=== PATIENT | male | born 1940 | race Caucasian/White ===

== ENCOUNTER 2021-09-17 15:45 | Inpatient (IN) ==
--- NOTE | 2021-09-17 16:06 | Emergency Department Note ---
Impression & Plan Ventricular tachycardia (paroxysmal), Near syncope, Elevated troponin, Hyponatremia ED Provider Note Name: BEBETO [id number] MORAIMA Age: 81 Sex: M Arrives Via: Ambulance Informant: Patient, EMS ED Provider: Guero Vargas MD Chief Complaint: Near Syncope Impression: As per impressions above Medical Decision Makin-year-old gentleman arrives from jail for evaluation of near syncope. He has a history of A. fib, hypertension, hyperlipidemia, CHF and has a pacemaker/ICD in place. Patient has had several episodes today of near syncope significantly worse this evening while showering. EKG at jail showed a wide- complex tachycardia either V. tach or SVT. He arrives to the ER no distress and feeling well. He is already received aspirin by EMS. He has an EKG which is paced and no overt ischemia nor ectopy at this time. On the monitor he has had no ectopy issues and he has been feeling well. Labs reveal a mildly elevated troponin of uncertain etiology though likely due to his tachycardia. He has no active chest pain and he is already on Eliquis thus starting anticoagulation seems unnecessary. He has no history of PE or dissection and getting a CTA is not indicated in this asymptomatic patient at the current time. Labs otherwise do show some hyponatremia that is unclear if this is new or old. With unknown CHF history we will hold off on giving significant fluids at this point as well as go ahead with starting some other labs including a urine osmolality/sodium as well as a blood osmolality. Pacemaker was interrogated which reveals that patient has actually had 4 episodes of ventricular tachycardia today all of which were able to be out of rhythm rather than requiring ICD firing. Pis calm cooperative and agreeable to hospitalization. Hospitalist consulted for further management. Prior Medical Record and Triage/Nursing Notes reviewed by Me Additional history obtained from jail records and EMS Differentials:Vasovagal event, dehydration, infection, hypoglycemia, electrolyte abnormalities, cardiac sources, intracerebral event, pulmonary embolism, seizure, toxicologic, neurologic, as well as other pathologies. Vital Signs: reviewed and remarkable for no significant abnormalities Labs:Reviewed and remarkable for elevated troponin, low sodium. Imaging:X ray results are stated below per my interpretation: Chest: 1 view: No infiltrate, no effusion, normal cardiac border. EKG:Per My Interpretation: Indication near syncope: AV dual paced at 72 bpm with QTC of 508. B, no overt ischemia, no previous EKGs for comparison Cardiac/Tele Monitoring: Cardiac Monitoring: An Order was placed for continuous cardiac monitoring. The monitor shows a rate of 70 with a paced rhythm. Consults:[facility] hospitalist [employer]: Wires/Battery OK. 4 episodes VT today. Last one has retrograde p waves, but first 3 were VT. All paced out of them without shock. January 2021 did have a few episodes without check since. Plan: Disposition:Hospitalization. Condition: Good History of Present Illness:81-year-old gentleman from jail arrives for evaluation of near syncope. Patient notes that this morning he had an episode of feeling like he was about to pass out with a racing heart. Lasted a while until he ate an apple and started feeling better. As the day went on he was feeling well and then was taking a shower and towards the end of the shower he felt like he was going to pass out again. Patient notes he almost collapsed to the floor and was [facility]. An EKG at that point showed a wide- complex tachycardia with a heart rate of 180. EMS was called and by the time EMS arrived patient notes he was feeling much better and their EKG showed a paced rhythm. Patient notes he has no history of CAD with a clean cath several years ago. He does have a history of A. fib and slow heart rate thus he has had a pacemaker with a defibrillator for the last several years. He is adamant that he did not feel any cardioversion with either the episodes today but rather the tachycardia just went away. He denies any chest pain with it. He has no current chest pain, shortness of breath, headache, neck pain, huber pain, nausea, vomiting, fevers, chills, runny nose, bowel/bladder her symptoms, leg swelling, calf pain or other symptoms. He has a history of A. fib thus he is on Eliquis which she takes twice a day along with his other medications. He had no recent falls, trauma, injuries. He states he actually feels quite fine right now. He had no interventions prior to arrival. When he was having the symptoms standing made worse and sitting down did seem to make better. ROS: See above HPI for pertinent positives & negatives. A total of 10 systems reviewed and were otherwise negative. Past Medical History:A. fib, hypertension, hyperlipidemia, CHF Past Surgical History:None Family History:Does not recall Social History:Prisoner, does not smoke, does not drink, no drug use Home Medications:Eliquis, metoprolol, hydrochlorothiazide, atorvastatin Allergies:No known drug allergies Vitals:Blood Pressure: 126/80, Pulse 74, RR 18, T 36.7C, O2 100% on RA Physical Exam: GENERAL: Patient is well appearing and in no acute distress. Sitting in bed in jail garb EYES: No scleral icterus, unremarkable pupils. ENT: Mucous membranes moist, no nasal congestion. NECK: No masses appreciated, nomeningismus, trachea is midline. RESPIRATORY: No dyspnea. Clear to auscultation and equal bilaterally. No wheeze, no rhonchi. CARDIOVASCULAR: Regular rate and rhythm.No murmurs, rubs, gallops appreciated. GASTROINTESTINAL: Abdomen soft, non-tender, no peritonitis.Bowel sounds positive.No masses appreciated. BACK: No midline tenderness, no CVA tenderness EXTREMITIES: Normal motion all extremities, no cyanosis, no edema. NEUROLOGIC: Alert and oriented, no acute motor or sensory deficits, no focal weakness, cranial nerves grossly intact. SKIN: No rash, no jaundice, no diaphoresis. PSYCH: Appropriate GCS: 15 ED Course: Times/Reassessments: Patient feeling well throughout without any further symptoms and unremarkable cardiac monitoring while under my care. Guero Vargas MD Past Med/Surg History Medical History (Updated 09/17/21 @ 21:22 by Guero Vargas MD) Atrial fibrillation CKD (chronic kidney disease) Diabetes mellitus, type II History of CHF (congestive heart failure) HLD (hyperlipidemia) HTN (hypertension) ICD (implantable cardioverter-defibrillator) in place Prostate cancer Surgical History (Updated 09/17/21 @ 19:20 by Mikaela Zhong PA-C) History of cardiac cath reported was in 2018 at [facility] in [place], [place] History of prostate surgery Family History (Updated 09/17/21 @ 19:20 by Mikaela Zhong PA-C) Father Stroke Social History (Updated 09/17/21 @ 19:20 by Mikaela Zhong PA-C) Smoking Status: Never smoker Hx Alcohol Use: No Hx Substance Use: No Preferred Language: Armenian Communication Ability: Effective Tmr Teacher Required: No Beliefs That Will Affect Care: None Current Living Situation: Other Current Living Situation Comment: [facility] Other Information That Helps Us Care for You: No Feels Safe at Home: Yes Safety Concerns: Feels Safe At This Time Assistive Devices: Glasses Allergies Allergies Allergy/AdvReac Type Severity Reaction Status Date / Time glimepiride Allergy reported Unverified 09/17/21 18:22 hypoglycemia linagliptin [From Tradjenta] Allergy Unknown Unverified 09/17/21 18:06 metformin Allergy itching Unverified 09/17/21 18:22 saxagliptin [From Onglyza] Allergy Unknown Unverified 09/17/21 18:06 Home Meds Home Medications Medication Instructions Recorded Confirmed apixaban 2.5 mg tablet (Eliquis) 2.5 mg PO BID 09/17/21 09/17/21 atorvastatin 20 mg tablet 20 mg PO DAILY 09/17/21 09/17/21 bimatoprost 0.03 % eye drops 1 drp OPB DAILY 09/17/21 09/17/21 hydrochlorothiazide 25 mg tablet 25 mg PO DAILY 09/17/21 09/17/21 levothyroxine 100 mcg tablet 100 mcg PO QAM 09/17/21 09/17/21 metoprolol tartrate 25 mg tablet 12.5 mg PO BID 09/17/21 09/17/21 multivitamin 1 tab PO DAILY 09/17/21 09/17/21 Results & Data (ED) Vital Signs Vital Signs - 24 hr 09/17/21 15:51 Temperature 36.7 C Temperature Source Oral Pulse Rate 74 Respiratory Rate 18 Blood Pressure 126/80 Blood Pressure Mean 95 Pulse Oximetry 100 Oxygen Delivery Method Room Air Oxygen Flow Rate 100 Sepsis Recent Fever Within 48 Hours No Sepsis New/Unexplained Change in Mental Status No Sepsis Action Taken by Nursing No Action Required Laboratory Data Result diagrams: 09/17/21 16:00 09/17/21 16:00 Lab Results 09/17/21 09/17/21 09/17/21 Range/Units 16:00 16:00 16:00 WBC 7.90 (4.8-10.8) K/uL RBC 4.46 L (4.7-6.1) M/uL Hgb 13.5 L (14.0-18.0) g/dL Hct 38.6 L (42-52) % MCV 86.5 (80-100) fL MCH 30.3 (25-34) pg MCHC 35.0 (32-36) g/dL RDW Std Deviation 40.7 (36.4-46.3) fL RDW Coeff of Gisele 12.8 (11.5-14.5) % Plt Count 202 (130-400) K/uL MPV 10.7 H (7.4-10.4) fL Immature Gran % (Auto) 0.6 % Neut % (Auto) 71.4 % Lymph % (Auto) 12.8 % Hampton % (Auto) 12.5 % Eos % (Auto) 2.3 % Baso % (Auto) 0.4 % Neut # (Auto) 5.64 (1.4-6.5) K/uL Lymph # (Auto) 1.01 L (1.2-3.4) K/uL Hampton # (Auto) 0.99 H (0.11-0.59) K/uL Eos # (Auto) 0.18 (0-0.5) K/uL Baso # (Auto) 0.03 (0-0.2) K/uL Immature Gran # (Auto) 0.05 H (0.00-0.02) K/uL Sodium 123 L (136-145) mmol/L Potassium 4.3 (3.5-5.1) mmol/L Chloride 91 L (98-107) mmol/L Carbon Dioxide 27 (21-32) mmol/L Anion Gap 5 (3-11) BUN 24 H (6-23) mg/dl Creatinine 1.45 H (0.6-1.4) mg/dl Est Cr Clr Drug Dosing 47.9 ml/min Est GFR ( Amer) 52.0 ml/min Est GFR (Non-Af Amer) 44.8 ml/min BUN/Creatinine Ratio 16.6 (10-20) Glucose 141 H (70-99(Fasting)) mg/dl Osmolality (280-300) mOsm/kg Calcium 9.4 (8.5-10.1) mg/dl Magnesium 1.8 (1.7-2.4) mg/dl Total Bilirubin 0.8 (0.2-1.0) mg/dl Direct Bilirubin 0.2 (0-0.2) mg/dl AST 24 (13-39) U/L ALT 18 (7-52) U/L Alkaline Phosphatase 86 (34-104) U/L Troponin I 0.05 H* (0-0.04) ng/ml Total Protein 6.7 (6.0-8.3) gm/dl Albumin 4.0 (3.4-5.0) gm/dl TSH 1.413 (0.300-4.500) uIu/ml SARS-CoV-2, RNA, NAAT (NEGATIVE) 09/17/21 09/17/21 Range/Units 16:00 16:14 WBC (4.8-10.8) K/uL RBC (4.7-6.1) M/uL Hgb (14.0-18.0) g/dL Hct (42-52) % MCV (80-100) fL MCH (25-34) pg MCHC (32-36) g/dL RDW Std Deviation (36.4-46.3) fL RDW Coeff of Gisele (11.5-14.5) % Plt Count (130-400) K/uL MPV (7.4-10.4) fL Immature Gran % (Auto) % Neut % (Auto) % Lymph % (Auto) % Hampton % (Auto) % Eos % (Auto) % Baso % (Auto) % Neut # (Auto) (1.4-6.5) K/uL Lymph # (Auto) (1.2-3.4) K/uL Hampton # (Auto) (0.11-0.59) K/uL Eos # (Auto) (0-0.5) K/uL Baso # (Auto) (0-0.2) K/uL Immature Gran # (Auto) (0.00-0.02) K/uL Sodium (136-145) mmol/L Potassium (3.5-5.1) mmol/L Chloride (98-107) mmol/L Carbon Dioxide (21-32) mmol/L Anion Gap (3-11) BUN (6-23) mg/dl Creatinine (0.6-1.4) mg/dl Est Cr Clr Drug Dosing ml/min Est GFR ( Amer) ml/min Est GFR (Non-Af Amer) ml/min BUN/Creatinine Ratio (10-20) Glucose (70-99(Fasting)) mg/dl Osmolality 273 L (280-300) mOsm/kg Calcium (8.5-10.1) mg/dl Magnesium (1.7-2.4) mg/dl Total Bilirubin (0.2-1.0) mg/dl Direct Bilirubin (0-0.2) mg/dl AST (13-39) U/L ALT (7-52) U/L Alkaline Phosphatase (34-104) U/L Troponin I (0-0.04) ng/ml Total Protein (6.0-8.3) gm/dl Albumin (3.4-5.0) gm/dl TSH (0.300-4.500) uIu/ml SARS-CoV-2, RNA, NAAT NEGATIVE (NEGATIVE) Administered Medications Apixaban (Apixaban 2.5 Mg Tab) 2.5 mg PO BID [facility] Stop: 10/17/21 20:59 Last Admin: 09/17/21 20:49 Dose: 2.5 mg Documented by: [id number] Amiodarone HCl/Dextrose (Nexterone / D5w) 360 mg in 200 mls @ 33.333 mls/hr IV ONE ONE Stop: 09/18/21 02:29 Last Admin: 09/17/21 20:49 Dose: 33.3 mls/hr Documented by: [id number] Cosigned by: [id number] Insulin Aspart (Insulin Aspart Per Unit) 0 units SC ACHS [facility] Stop: 10/17/21 20:59 Last Admin: 09/17/21 20:50 Dose: 3 units Documented by: [id number] Cosigned by: [id number] Metoprolol Tartrate (Metoprolol Tartrate 25 Mg Tab) 12.5 mg PO BID [facility] Stop: 10/17/21 20:59 Last Admin: 09/17/21 20:50 Dose: 12.5 mg Documented by: [id number] Discontinued Medications Amiodarone HCl/Dextrose (Nexterone / D5w) 150 mg in 100 mls @ 600 mls/hr IV NOW STA Stop: 09/17/21 19:12 Last Admin: 09/17/21 20:30 Dose: 600 mls/hr Documented by: [id number] Cosigned by: [id number] Sodium Chloride (Nss 1000ml) 500 mls @ 999 mls/hr IV .Q31M ONE Stop: 09/17/21 19:40 Last Admin: 09/17/21 20:38 Dose: 999 mls/hr Documented by: [id number] Imaging Data Radiologist's Impression: Chest X-Ray 09/17/21 16:01 XR chest 1V portable CLINICAL HISTORY: near syncope TECHNIQUE: Single frontal radiograph of the chest was obtained. Comparison: None available at the time of this dictation. FINDINGS: No lines and tubes are seen. The aorta is tortuous. The remainder of the cardiomediastinal silhouette is unremarkable. The lungs are clear. No evidence of pleural effusion or pneumothorax. IMPRESSION: No acute chest disease. ACT 112: Negative or not required by law. Electronically signed by: Jose G Crowe M.D. 09/17/2021 5:11 PM Discharge Plan Visit Data Chief Complaint: Dizziness Stated Complaint: DIZZINESS, CHEST PAIN, SOB ED Provider: Guero Vargas Discharge Problem: Ventricular tachycardia (paroxysmal), Near syncope, Elevated troponin, Hyponatremia Patient Disposition: Admitted As Inpatient Discharge Instructions Interventions: ED Discharge Assessment Last Done: 09/17/21 19:19
[2021-09-17 16:14] LABS: Basophils # (auto) 0.03 K/uL (0-0.2); Basophils % (auto) 0.4 %; Eosinophils # (auto) 0.18 K/uL (0-0.5); Eosinophils % (auto) 2.3 %; Hematocrit (blood only) 38.6 % (42-52); Hemoglobin 13.5 g/dL (14.0-18.0); Immature Granulocytes # (auto) 0.05 K/uL (0.00-0.02); Immature Granulocytes % (auto) 0.6 %; Lymphocytes # (auto) 1.01 K/uL (1.2-3.4); Lymphocytes % (auto) 12.8 %; Mean Corpuscular Hemoglobin 30.3 pg (25-34); Mean Corpuscular Volume 86.5 fL (80-100); Mean Platelet Volume 10.7 fL (7.4-10.4); Monocytes # (auto) 0.99 K/uL (0.11-0.59); Monocytes % (auto) 12.5 %; Neutrophils # (auto) 5.64 K/uL (1.4-6.5); Neutrophils % (auto) 71.4 %; Platelet Count 202 K/uL (130-400); RDW Coefficient of Variation 12.8 % (11.5-14.5); RDW Standard Deviation 40.7 fL (36.4-46.3); Red Blood Count 4.46 M/uL (4.7-6.1)
[2021-09-17 16:37] LABS: BUN Creatinine Ratio 16.6 (10-20); Bilirubin Direct 0.2 mg/dl (0-0.2); Bilirubin,Total 0.8 mg/dl (0.2-1.0); Calcium 9.4 mg/dl (8.5-10.1); Creatinine Clr Calc Pharmacy 47.9 ml/min; Est GFR (Non-African American) 44.8 ml/min; Magnesium 1.8 mg/dl (1.7-2.4); Potassium 4.3 mmol/L (3.5-5.1); Total Protein 6.7 gm/dl (6.0-8.3)
[2021-09-17 16:44] LABS: Troponin I 0.05 ng/ml (0-0.04)
--- NOTE | 2021-09-17 17:12 | XRay Report ---
XR chest 1V portable CLINICAL HISTORY: near syncope TECHNIQUE: Single frontal radiograph of the chest was obtained. Comparison: None available at the time of this dictation. FINDINGS: No lines and tubes are seen. The aorta is tortuous. The remainder of the cardiomediastinal silhouette is unremarkable. The lungs are clear. No evidence of pleural effusion or pneumothorax. IMPRESSION: No acute chest disease. ACT 112: Negative or not required by law. Electronically signed by: Jose G Crowe M.D. 09/17/2021 5:11 PM
--- NOTE | 2021-09-17 17:20 | History & Physical Report ---
Date of Service September 17, 2021 Assessment & Plan (1) Ventricular tachycardia (paroxysmal): (2) History of CHF (congestive heart failure): (3) ICD (implantable cardioverter-defibrillator) in place: (4) Elevated troponin: Plan: Patient is 81-year-old male with PMH HTN, HLD, diet controlled DM II, CKD, CHF, h/o pacemaker/ICD, atrial fibrillation on Eliquis, h/o prostate CA s/p surgery presented to ER with complaint of episodes of dizziness, syncope. Denies shocks, denies chest pain or recent illness. Patient reports in 2018 developed SOB and was seen at [facility] in [place], [place] and was diagnosed with CHF. Patient states had cardiac cath and reports was told it was ok. He reports had pacer/ICD placed during that admission. In ER patient had paced rhythm upon arrival, vitals stable. Had device interrogated and reported episodes VT with paced termination, no shocks. In ER patient reports feeling well. Magnesium and TSH labs WNL PCU to monitor Obtain echo Troponin: 0.05, likely demand ischemia secondary to episodes VT. Trend troponin EKG as needed for CP, palpitations EKG in a.m. Cardiology consult, prison officer recommends amiodarone bolus and drip Attempt to obtain records from [facility] (5) Hyponatremia: Plan: Na 123. Unsure of patient's baseline Serum and urine osmolality, serum sodium pending Hold HCTZ gentle IVF BMP in am (6) CKD (chronic kidney disease): Plan: Unsure of stage of CKD Cr:1.45 Monitor renal functions, avoid nephrotoxic agents when possible (7) Atrial fibrillation: Plan: On Eliquis Continue Eliquis, metoprolol tartrate (8) Diabetes mellitus, type II: Plan: Now diet controlled Diabetic diet A1c in a.m. NovoLog sliding scale per protocol (9) HTN (hypertension): Plan: Hold HCTZ (10) HLD (hyperlipidemia): Plan: Continue atorvastatin (11) Prostate cancer: Plan: Status post prostate surgery. Patient reports does not think had prostatectomy. Denies h/o chemo or radiation DVT Prophylaxis On Eliquis Full Code as per discussion with pt Follows with Dr brendan Mckenzie for routine care Pt was seen and care coordinated with Dr Berger. See addendum History of Present Illness Chief Complaint: Dizziness Primary Care Provider: ZAK Jonah Patient is 81-year-old male with PMH HTN, HLD, diet controlled DM II, CKD, CHF, h/o pacemaker/ICD, atrial fibrillation on Eliquis, h/o prostate CA s/p surgery presented to ER with complaint of dizziness today. Patient reports this morning was sitting playing cards when he started to feel dizzy and reports that he "blacked out". He states this afternoon was showering when he started to have dizziness, shortness of breath and felt like his heart was racing and reports he was able to sit down prior to having a syncopal episode. It is reported patient was taken to [facility] and found to have wide-complex tachycardia, rate 180 on EKG. Reports upon EMS arrival patient was in paced rhythm. Patient denies feeling any shocks today. Denies chest pain. Patient reports in 2018 developed SOB and was seen at [facility] in [place], [place] and was diagnosed with CHF. Patient states had cardiac cath and reports was told it was ok. He reports had pacer/ICD placed during that admission. Denies fever/chills, diaphoresis, N/V/D/C, [place], vision changes, neck pain, cough, sore throat, choking, otalgia, rhinorrhea, abdominal pain, paresthesias, extremity weakness, extremity edema, rashes, urinary symptoms. In ER patient had paced rhythm upon arrival, vitals stable. Had device interrogated and reported episodes VT with paced termination, no shocks. In ER patient reports feeling well. Allergies Allergy/AdvReac Type Severity Reaction Status Date / Time glimepiride Allergy reported Unverified 09/17/21 18:22 hypoglycemia linagliptin [From Tradjenta] Allergy Unknown Unverified 09/17/21 18:06 metformin Allergy itching Unverified 09/17/21 18:22 saxagliptin [From Onglyza] Allergy Unknown Unverified 09/17/21 18:06 Home Medications Medication Instructions Recorded Confirmed Type apixaban 2.5 mg tablet (Eliquis) 2.5 mg PO BID 09/17/21 09/17/21 History atorvastatin 20 mg tablet 20 mg PO DAILY 09/17/21 09/17/21 History bimatoprost 0.03 % eye drops 1 drp OPB DAILY 09/17/21 09/17/21 History hydrochlorothiazide 25 mg tablet 25 mg PO DAILY 09/17/21 09/17/21 History levothyroxine 100 mcg tablet 100 mcg PO QAM 09/17/21 09/17/21 History metoprolol tartrate 25 mg tablet 12.5 mg PO BID 09/17/21 09/17/21 History multivitamin 1 tab PO DAILY 09/17/21 09/17/21 History Past Med/Surg History Medical History (Updated 09/17/21 @ 19:22 by Mikaela Zhong PA-C) Atrial fibrillation CKD (chronic kidney disease) Diabetes mellitus, type II History of CHF (congestive heart failure) HLD (hyperlipidemia) HTN (hypertension) ICD (implantable cardioverter-defibrillator) in place Prostate cancer Surgical History (Updated 09/17/21 @ 19:20 by Mikaela Zhong PA-C) History of cardiac cath reported was in 2018 at [facility] in [place], [place] History of prostate surgery Family History (Updated 09/17/21 @ 19:20 by Mikaela Zhong PA-C) Father Stroke Social History (Updated 09/17/21 @ 19:20 by Mikaela Zhong PA-C) Smoking Status: Never smoker Hx Alcohol Use: No Hx Substance Use: No Preferred Language: Slovenian Feels Safe at Home: Yes Review of Systems Review of Systems: All systems reviewed & are unremarkable except as noted in HPI & below Physical Exam Physical Exam: General: no distress, WDWN Head: normocephalic, atraumatic Eyes: PERRL, EOM's intact, conjunctiva non-injected, anicteric ENT: normal inspection external ears, nose, mucous membranes moist Neck: supple, trachea midline Lungs: clear, no respiratory distress, no wheezing/rhonchi/rales CV: RRR, no murmur, no pretibial edema Abd: normal BS, soft, non-tender Ext: no cyanosis, no calf tenderness Neuro: A&O x 3, no focal deficits noted, normal affect Skin: warm, dry Results & Data Results & Data ([facility]) Vital Signs (Past 12 Hours) Vital Signs Temp Pulse Resp BP Pulse Ox 09/17/21 15:51 36.7 C 74 18 126/80 100 Laboratory Results Short CBC 09/17/21 Range/Units 16:00 WBC 7.90 (4.8-10.8) K/uL Hgb 13.5 L (14.0-18.0) g/dL Hct 38.6 L (42-52) % Plt Count 202 (130-400) K/uL BMP 09/17/21 16:00 Sodium 123 L Potassium 4.3 Chloride 91 L Carbon Dioxide 27 BUN 24 H Creatinine 1.45 H Glucose 141 H Calcium 9.4 Cardiac Enzymes 09/17/21 Range/Units 16:00 Troponin I 0.05 H* (0-0.04) ng/ml Liver Function 09/17/21 Range/Units 16:00 Total Bilirubin 0.8 (0.2-1.0) mg/dl Direct Bilirubin 0.2 (0-0.2) mg/dl AST 24 (13-39) U/L ALT 18 (7-52) U/L Alkaline Phosphatase 86 (34-104) U/L Albumin 4.0 (3.4-5.0) gm/dl Diagnostic Findings Chest X-Ray 09/17/21 16:01 XR chest 1V portable CLINICAL HISTORY: near syncope TECHNIQUE: Single frontal radiograph of the chest was obtained. Comparison: None available at the time of this dictation. FINDINGS: No lines and tubes are seen. The aorta is tortuous. The remainder of the cardiomediastinal silhouette is unremarkable. The lungs are clear. No evidence of pleural effusion or pneumothorax. IMPRESSION: No acute chest disease. ACT 112: Negative or not required by law. Electronically signed by: Jose G Crowe M.D. 09/17/2021 5:11 PM Supervising Physician Co-Signing Physician Notes Pt is a 81 y/o M with hx of CHF (unknown EF) s/p ICD and pacemaker, Afib on eliquis, HTN, DMII (diet controlled), Hypothyroidism, CKD III, Prostate Ca s/p surgery, skin Ca admitted for episode of syncope and VT. PE: NAD, well developed Lungs: CTA, no crackles, or wheezing Card: normal s1/s2, systolic murmur Abd: ND, soft, NT MSK: no LE edema Psych: AAOx3, normal affect A/P: Syncope with episode of VT: -currently pt is asymptomatic -EKG: paced rhythm -initial trop positive: will trend trop -Cardiology consult -will get echo and admit to pcu tele HypoNa+: -likely dehydration -will give 500 cc bolus -BMP in 6 hrs - normal mental status Afib on eliquis: -continue home meds Other chronic conditions: plan as above Agree with A/P by Mikaela Zhong PA-C
[2021-09-17] MEDS ORDERED: AMIODARONE IV BOLUS & DRIP IV STA (19:03)
[2021-09-17] MEDS ORDERED: STAT IV Infusion **Titration per Protocol STA (19:03)
[2021-09-17] MEDS ORDERED: AMIODARONE / D5W 150 MG/100 ML BAG IV STA (19:03)
[2021-09-17] MEDS ORDERED: SODIUM CHLORIDE 0.9% 1000ML 500 ML IV ONE (19:10)
[2021-09-17] MEDS ORDERED: CARBOHYDRATES FOR HYPOGLYCEMIA PO PRN (20:16)
[2021-09-17] MEDS ORDERED: GLUCAGON FOR INJ 1 MG VIAL SQ PRN (20:16)
[2021-09-17] MEDS ORDERED: DEXTROSE 50% 50 ML SYRINGE IV PRN (20:16)
[2021-09-17] MEDS ORDERED: 0.2 MICRON FILTER SET 1 EA IV ONE (20:16)
[2021-09-17] MEDS ORDERED: GLUCOSE 10 TABS/TUBE PO PRN (20:16)
[2021-09-17] MEDS ORDERED: GLUCOSE 40% GEL 15 GM TUBE PO PRN (20:16)
[2021-09-17] MEDS ORDERED: ACETAMINOPHEN 325 MG TAB PO PRN (20:16)
[2021-09-17] MEDS ORDERED: AMIODARONE / D5W 360 MG/200 ML BAG IV ONE (20:30)
[2021-09-17] MEDS: APIXABAN 2.5 MG TAB PO SCH (20:49)
[2021-09-17] MEDS: METOPROLOL TARTRATE 25 MG TAB PO SCH (20:50)
[2021-09-17] MEDS: INSULIN ASPART PER UNIT SC SCH (20:50)
[2021-09-17 21:24] LABS: Appearance Urine Clear (Clear); Bilirubin Urine Negative (Negative); Blood Urine Negative (Negative); Color Urine Yellow; Glucose Urine UA Negative (Negative); Ketones Urine Trace (Negative); Leukocyte Esterase Urine Negative (Negative); Nitrite Urine Negative (Negative); Protein Urine Negative (Negative); Specific Gravity Urine 1.013 (1.000-1.030); Urobilinogen Urine Negative (Negative); pH Urine 7.5 (4.5-7.5)
[2021-09-18] MEDS: AMIODARONE / D5W 360 MG/200 ML BAG IV SCH ×3 (02:27→23:23)
[2021-09-18 03:56] LABS: Hemoglobin 12.9 g/dL (14.0-18.0); Mean Corpuscular Hemoglobin 29.5 pg (25-34); Mean Corpuscular Volume 86.8 fL (80-100); Mean Platelet Volume 10.6 fL (7.4-10.4); Platelet Count 172 K/uL (130-400); RDW Coefficient of Variation 12.9 % (11.5-14.5); RDW Standard Deviation 41.5 fL (36.4-46.3); Red Blood Count 4.38 M/uL (4.7-6.1); White Blood Count 6.15 K/uL (4.8-10.8)
[2021-09-18 04:19] LABS: BUN Creatinine Ratio 16.8 (10-20); Calcium 8.9 mg/dl (8.5-10.1); Creatinine Clr Calc Pharmacy 47.8 ml/min; Est GFR (African American) 58.8 ml/min; Est GFR (Non-African American) 50.7 ml/min; Potassium 4.1 mmol/L (3.5-5.1)
[2021-09-18 04:33] LABS: Mean Corpuscular Hgb Conc 33.9 g/dL (32-36)
[2021-09-18] MEDS: LEVOTHYROXINE SODIUM 100 MCG TABLET PO SCH (06:11)
--- NOTE | 2021-09-18 06:54 | Electrocardiogram Report ---
Test Reason : Blood Pressure : / mmHG Vent. Rate : 072 BPM Atrial Rate : 072 BPM P-R Int : 168 ms QRS Dur : 178 ms QT Int : 464 ms P-R-T Axes : 076 -72 091 degrees QTc Int : 508 ms AV dual-paced rhythm Biventricular pacemaker detected Abnormal ECG No previous ECGs available Confirmed by Catrachito Enciso ([id number]) on 09/18/2021 6:53:32 AM Referred By: Confirmed By:Catrachito Enciso
[2021-09-18] MEDS: ATORVASTATIN 20 MG TAB PO SCH (08:08)
[2021-09-18] MEDS: MULTIVITAMIN TAB PO SCH (08:08)
[2021-09-18] MEDS: METOPROLOL TARTRATE 25 MG TAB PO SCH ×2 (08:08→20:41)
[2021-09-18] MEDS: APIXABAN 2.5 MG TAB PO SCH ×2 (08:09→20:49)
[2021-09-18] MEDS: INSULIN ASPART PER UNIT SC SCH ×4 (08:42→20:16)
--- NOTE | 2021-09-18 11:04 | Hospitalist Progress Note ---
Date of Service September 18, 2021 Assessment & Plan (1) Ventricular tachycardia (paroxysmal): (2) History of CHF (congestive heart failure): (3) ICD (implantable cardioverter-defibrillator) in place: (4) Elevated troponin: Plan: Patient is 81-year-old male with PMH HTN, HLD, diet controlled DM II, CKD, CHF, h/o pacemaker/ICD, atrial fibrillation on Eliquis, h/o prostate CA s/p surgery presented to ER with complaint of episodes of dizziness, syncope. Denies shocks, denies chest pain or recent illness. Patient reports in 2018 developed SOB and was seen at [facility] in [place], [place] and was diagnosed with CHF. Patient states had cardiac cath and reports was told it was ok. He reports had pacer/ICD placed during that admission. In ER patient had paced rhythm upon arrival, vitals stable. Had device interrogated and reported episodes VT with paced termination, no shocks. In ER patient reports feeling well. Magnesium and TSH labs WNL PCU to monitor Echo Troponin: 0.05, likely demand ischemia secondary to episodes VT. Trend troponin EKG as needed for CP, palpitations Cardiology to see, electronic plotting system operator recommended amiodarone bolus and drip (5) Hyponatremia: Plan: Na 123. Unsure of patient's baseline Serum and urine osmolality, serum sodium pending Hold HCTZ gentle IVF (6) CKD (chronic kidney disease): Plan: Unsure of stage of CKD Cr:1.45 Monitor renal functions, avoid nephrotoxic agents when possible (7) Atrial fibrillation: Plan: On Eliquis Continue Eliquis, metoprolol tartrate (8) Diabetes mellitus, type II: Plan: Now diet controlled Diabetic diet NovoLog sliding scale per protocol (9) HTN (hypertension): Plan: Hold HCTZ (10) HLD (hyperlipidemia): Plan: ontinue atorvastatin (11) Prostate cancer: Plan: Status post prostate surgery. Patient reports does not think had prostatectomy. Denies h/o chemo or radiation DVT Prophylaxis On Eliquis Full Code as per discussion with pt Follows with Dr brendan Mckenzie for routine care ROS-No Headache, No Visual Changes, No Nausea, No Vomiting, No Fever, No Chills, No Neck Pain or Stiffness, No Chest Pain, No Palpitations, No SOB, No MARKS, No Cough, No Sputum, No Wheezing, No Abdominal Pain, No Diarrhea, No Hematemesis, No Hemoptysis, No Unexpected Weight Loss, No Flank pain, No Melena, No Hematochezia, No Frequency, No Urgency, No Burning, No Hematuria, No Rashes, No Diaphoresis. Appetite is Normal Physical Exam Gen-AAO x 3, NAD, Afebrile Head-NCAT, EOMI, PERRLA, Anicteric Sclera, No Posterior Pharyngeal Erythema Neck-Supple, No JVD, No Thyromegaly, No Masses, No LAD, No Bruits Lungs-Clear to Auscultation Bilaterally, No Rales, No Rhonchi, No Wheezing, No Crepitus Chest-No S4, +S1, +S2, No S3, +Murmur, No Rubs, No Gallops, No Ectopy Abdomen-Soft, Bowel Sounds Present, Non Tender, Non Distended, No Hepatomegaly, No Splenomegaly, No Palpable Masses, No Rebound, No Rigidity, No Guarding Musculoskeletal-Full Range of Motion Bilaterally, No CVAT Extremities-No Cyanosis, No Clubbing, No Edema Nuero-Cranial Nerves II-XII grossly intact, Motor WNL, DTRs WNL, Strength WNL, Non Focal Psych-Normal Mood Admission and Anticipated Discharge Date Admission Date: September 17, 2021 Subjective Patient seen, feels great. Results & Data Results & Data ([facility]) Vital Signs (Past 12 Hours) Vital Signs Temp Pulse Pulse Resp BP Pulse Ox 09/18/21 08:54 71 09/18/21 07:36 36.4 C L 72 20 107/70 98 09/18/21 04:22 36.8 C 70 18 104/70 94 09/17/21 23:04 36.9 C 70 19 109/71 96
--- NOTE | 2021-09-18 14:09 | Cardiology Consultation ---
Date of Consultation September 18, 2021 Assessment & Plan (1) Ventricular tachycardia (paroxysmal): (2) Elevated troponin: (3) Hyponatremia: (4) Diabetes mellitus, type II: (5) Chest pain: (6) NICM (nonischemic cardiomyopathy): (7) Mitral regurgitation: I discussed the case with the admitting team and recommend the patient receive IV amiodarone bolus and load given his recurrent ventricular tachycardia. No further events since admission, patient tolerating amiodarone well. We will complete 24-hour load and then change amiodarone to 400 mg p.o. twice daily. Given the recurrent ventricular tachycardia and chest discomfort I do believe an ischemic evaluation is warranted so the patient will undergo cardiac catheterization in the a.m. Continue current medications. N.p.o. after midnight. History of Present Illness Reason for Consultation: Syncope with V. tach Requesting Physician: [facility] hospitalist group Attending Physician: Joshua De, History of Present Illness Mr. Nixon is a very pleasant 81-year-old gentleman who presented to [facility] on 09/17/2021 from [facility] with reports of multiple near syncopal and syncopal events. He states that over the last 24 hours he is not been feeling well. He has had recurrent episodes of lightheadedness and dizziness and one syncopal event that was witnessed while he was playing cards. He was brought into the emergency department where he was found to have episodes of ventricular tachycardia on his BiV ICD. Luckily, the device was able to pace him out of it and no ICD shocks were delivered. Upon further questioning, the patient states he is also been having chest pain off and on for approximately last 24 hours. He describes it as a pressure sensation in the center of his chest that can occur either at rest or with exertion. He states the above symptoms are exactly similar to his presenting symptoms in 2018 where he was diagnosed with nonischemic cardiomyopathy at an outside hospital and a BiV ICD was placed. No medical records are available at this time. Allergies Allergy/AdvReac Type Severity Reaction Status Date / Time glimepiride Allergy reported Unverified 09/17/21 18:22 hypoglycemia linagliptin [From Tradjenta] Allergy Unknown Unverified 09/17/21 18:06 metformin Allergy itching Unverified 03/05/22 18:22 saxagliptin [From Onglyza] Allergy Unknown Unverified 09/17/21 18:06 Home Medications Medication Instructions Recorded Confirmed Type apixaban 2.5 mg tablet (Eliquis) 2.5 mg PO BID 09/17/21 09/17/21 History atorvastatin 20 mg tablet 20 mg PO DAILY 09/17/21 09/17/21 History bimatoprost 0.03 % eye drops 1 drp OPB DAILY 09/17/21 09/17/21 History hydrochlorothiazide 25 mg tablet 25 mg PO DAILY 09/17/21 09/17/21 History levothyroxine 100 mcg tablet 100 mcg PO QAM 09/17/21 09/17/21 History metoprolol tartrate 25 mg tablet 12.5 mg PO BID 09/17/21 09/17/21 History multivitamin 1 tab PO DAILY 09/17/21 09/17/21 History Patient History Medical History Atrial fibrillation CKD (chronic kidney disease) Diabetes mellitus, type II History of CHF (congestive heart failure) HLD (hyperlipidemia) HTN (hypertension) ICD (implantable cardioverter-defibrillator) in place Prostate cancer Surgical History History of cardiac cath reported was in 2018 at [facility] in [place], [place] History of prostate surgery Family History Father Stroke Social History Smoking Status: Never smoker Hx Alcohol Use: No Hx Substance Use: No Preferred Language: Divehi Communication Ability: Effective Food Operations Manager Required: No Beliefs That Will Affect Care: None Current Living Situation: Other Current Living Situation Comment: [facility] Other Information That Helps Us Care for You: No Feels Safe at Home: Yes Safety Concerns: Feels Safe At This Time Assistive Devices: Oxygen - Continuous Review of Systems Review of Systems: All systems reviewed & are unremarkable except as noted in HPI & below Physical Exam Physical Exam: General: Awake, alert and oriented x 3. No acute distress. HEENT: Normocephalic, atraumatic. Pupils equal, round and reactive to light and accommodation. Extraocular muscles are intact. Anicteric sclera. Moist mucous membranes. Neck: No JVD. No bruit. Cardiovascular: Regular. Positive S-4. Normal S-1 and S-2. No S-3. 3/6 holosystolic ejection murmur, left sternal border, mid-clavicular line with radiation to the axilla. No rubs. Pulmonary: Clear to auscultation bilaterally. No rales, rhonchi, or wheezing. Abdomen: Bowel sounds x 4, soft. No rebound, guarding or tenderness. No organomegaly. Extremities: No clubbing, cyanosis or edema. +2 pedal pulses bilaterally. Skin: Warm and dry. Results & Data ([facility]) Vital Signs (Past 12 Hours) Vital Signs Temp Pulse Pulse Resp BP Pulse Ox 09/18/21 08:54 71 09/18/21 07:36 36.4 C L 72 20 107/70 98 09/18/21 04:22 36.8 C 70 18 104/70 94
[2021-09-19] MEDS: LEVOTHYROXINE SODIUM 100 MCG TABLET PO SCH (05:28)
[2021-09-19 06:36] LABS: Hemoglobin 13.3 g/dL (14.0-18.0); Mean Corpuscular Hemoglobin 29.7 pg (25-34); Mean Corpuscular Hgb Conc 34.1 g/dL (32-36); Mean Corpuscular Volume 87.1 fL (80-100); Mean Platelet Volume 11.1 fL (7.4-10.4); Platelet Count 183 K/uL (130-400); RDW Coefficient of Variation 13.1 % (11.5-14.5); RDW Standard Deviation 41.8 fL (36.4-46.3); Red Blood Count 4.48 M/uL (4.7-6.1); White Blood Count 7.77 K/uL (4.8-10.8)
--- NOTE | 2021-09-19 06:47 | Electrocardiogram Report ---
Test Reason : Blood Pressure : / mmHG Vent. Rate : 070 BPM Atrial Rate : 070 BPM P-R Int : 166 ms QRS Dur : 184 ms QT Int : 512 ms P-R-T Axes : 066 -73 095 degrees QTc Int : 552 ms AV dual-paced rhythm Biventricular pacemaker detected Abnormal ECG When compared with ECG of 17-SEP-2021 15:51, Vent. rate has decreased BY 2 BPM Confirmed by Catrachito Enciso ([id number]) on 09/19/2021 6:47:20 AM Referred By: REFERRED SELF Confirmed By:Catrachito Enciso
[2021-09-19 07:09] LABS: BUN Creatinine Ratio 15.1 (10-20); Calcium 9.6 mg/dl (8.5-10.1); Creatinine Clr Calc Pharmacy 45.1 ml/min; Est GFR (African American) 54.7 ml/min; Est GFR (Non-African American) 47.2 ml/min
[2021-09-19 07:24] LABS: Estimated Average Glucose 157 mg/dl; Hemoglobin A1C 7.1 % (4.5-5.6)
[2021-09-19] MEDS: INSULIN ASPART PER UNIT SC SCH ×4 (07:27→20:20)
--- NOTE | 2021-09-19 07:39 | Hospitalist Progress Note ---
Date of Service September 19, 2021 Assessment & Plan (1) Ventricular tachycardia (paroxysmal): (2) History of CHF (congestive heart failure): (3) ICD (implantable cardioverter-defibrillator) in place: (4) Elevated troponin: Plan: Patient is 81-year-old male with PMH HTN, HLD, diet controlled DM II, CKD, CHF, h/o pacemaker/ICD, atrial fibrillation on Eliquis, h/o prostate CA s/p surgery presented to ER with complaint of episodes of dizziness, syncope. Denies shocks, denies chest pain or recent illness. Patient reports in 2018 developed SOB and was seen at [facility] in [place], [place] and was diagnosed with CHF. Patient states had cardiac cath and reports was told it was ok. He reports had pacer/ICD placed during that admission. In ER patient had paced rhythm upon arrival, vitals stable. Had device interrogated and reported episodes VT with paced termination, no shocks. In ER patient reports feeling well. Magnesium and TSH labs WNL PCU to monitor Echo Troponin: 0.05, likely demand ischemia secondary to episodes VT. Trend troponin EKG as needed for CP, palpitations Cardiology on case, Amio 400 BID after load, Cardiac Cath today (5) Hyponatremia: Plan: Na 123. Unsure of patient's baseline Serum and urine osmolality, serum sodium pending Hold HCTZ gentle IVF Na 131 (6) CKD (chronic kidney disease): Plan: Monitor renal functions, avoid nephrotoxic agents when possible (7) Atrial fibrillation: Plan: On Eliquis Continue Eliquis, metoprolol tartrate (8) Diabetes mellitus, type II: Plan: Now diet controlled Diabetic diet NovoLog sliding scale per protocol (9) HTN (hypertension): Plan: Hold HCTZ (10) HLD (hyperlipidemia): Plan: Continue atorvastatin (11) Prostate cancer: Plan: Status post prostate surgery. Patient reports does not think had prostatectomy. Denies h/o chemo or radiation DVT Prophylaxis On Eliquis Paced on Tele, no Vt Full Code as per discussion with pt Follows with Dr brendan Mckenzie for routine care ROS-No Headache, No Visual Changes, No Nausea, No Vomiting, No Fever, No Chills, No Neck Pain or Stiffness, No Chest Pain, No Palpitations, No SOB, No MARKS, No Cough, No Sputum, No Wheezing, No Abdominal Pain, No Diarrhea, No Hematemesis, No Hemoptysis, No Unexpected Weight Loss, No Flank pain, No Melena, No Hematochezia, No Frequency, No Urgency, No Burning, No Hematuria, No Rashes, No Diaphoresis. Appetite is Normal Physical Exam Gen-AAO x 3, NAD, Afebrile Head-NCAT, EOMI, PERRLA, Anicteric Sclera, No Posterior Pharyngeal Erythema Neck-Supple, No JVD, No Thyromegaly, No Masses, No LAD, No Bruits Lungs-Clear to Auscultation Bilaterally, No Rales, No Rhonchi, No Wheezing, No Crepitus Chest-No S4, +S1, +S2, No S3, +Murmur, No Rubs, No Gallops, No Ectopy Abdomen-Soft, Bowel Sounds Present, Non Tender, Non Distended, No Hepatomegaly, No Splenomegaly, No Palpable Masses, No Rebound, No Rigidity, No Guarding Musculoskeletal-Full Range of Motion Bilaterally, No CVAT Extremities-No Cyanosis, No Clubbing, No Edema Nuero-Cranial Nerves II-XII grossly intact, Motor WNL, DTRs WNL, Strength WNL, Non Focal Psych-Normal Mood Admission and Anticipated Discharge Date Admission Date: September 17, 2021 Subjective Patient seen, feels great. Results & Data Results & Data ([facility]) Vital Signs (Past 12 Hours) Vital Signs Temp Pulse Pulse Resp BP Pulse Ox 09/19/21 07:26 36.4 C L 71 18 146/89 H 96 09/19/21 06:56 72 09/19/21 03:50 36.4 C L 70 16 143/91 H 97 09/18/21 23:46 71 09/18/21 22:53 36.6 C 70 20 134/87 97
[2021-09-19] MEDS: MULTIVITAMIN TAB PO SCH (08:59)
[2021-09-19] MEDS: ATORVASTATIN 20 MG TAB PO SCH (08:59)
[2021-09-19] MEDS: METOPROLOL TARTRATE 25 MG TAB PO SCH ×2 (08:59→20:20)
[2021-09-19] MEDS: APIXABAN 2.5 MG TAB PO SCH ×2 (09:45→20:20)
--- NOTE | 2021-09-19 10:41 | Cardiology Progress Note ---
Date of Service September 19, 2021 Assessment & Plan (1) Ventricular tachycardia (paroxysmal): (2) Elevated troponin: (3) Hyponatremia: (4) Diabetes mellitus, type II: (5) Chest pain: (6) NICM (nonischemic cardiomyopathy): (7) Mitral regurgitation: Plan: No further events since admission, patient tolerating amiodarone well. I have discontinued the IV We will complete 24-hour load and then change amiodarone to 400 mg p.o. twice daily. Given the recurrent ventricular tachycardia and chest discomfort I do believe an ischemic evaluation is warranted so the patient will undergo cardiac catheterization today Continue current medications. Further recommendations to follow catheterization. Admission and Anticipated Discharge Date Admission Date: September 17, 2021 Subjective Patient seen and examined, chart reviewed. No further episodes of palpitations, lightheadedness or syncope overnight. Still with a dull 2 out of 10 central chest discomfort. Telemetry reviewed: AV sequential pacing. Review of Systems Review of Systems: All systems reviewed & are unremarkable except as noted in HPI & below Physical Exam Physical Exam: General: Awake, alert and oriented x 3. No acute distress. HEENT: Normocephalic, atraumatic. Pupils equal, round and reactive to light and accommodation. Extraocular muscles are intact. Anicteric sclera. Moist mucous membranes. Neck: No JVD. No bruit. Cardiovascular: Regular. Positive S-4. Normal S-1 and S-2. No S-3. 3/6 holosystolic ejection murmur, left sternal border, mid-clavicular line with radiation to the axilla. No rubs. Pulmonary: Clear to auscultation bilaterally. No rales, rhonchi, or wheezing. Abdomen: Bowel sounds x 4, soft. No rebound, guarding or tenderness. No organomegaly. Extremities: No clubbing, cyanosis or edema. +2 pedal pulses bilaterally. Skin: Warm and dry. Results & Data ([facility]) Vital Signs (Past 12 Hours) Vital Signs Temp Pulse Pulse Resp BP Pulse Ox 09/19/21 10:29 68 139/98 98 09/19/21 07:26 36.4 C L 71 18 146/89 H 96 09/19/21 06:56 72 09/19/21 03:50 36.4 C L 70 16 143/91 H 97 09/18/21 23:46 71 09/18/21 22:53 36.6 C 70 20 134/87 97
--- NOTE | 2021-09-19 11:48 | Pre Anesthesia Assessment ---
Date of Service September 19, 2021 Pre Sedation Assessment Vital Signs Temp Pulse Pulse Resp BP Pulse Ox 09/19/21 10:29 68 139/98 98 09/19/21 07:26 36.4 C L 71 18 146/89 H 96 09/19/21 06:56 72 09/19/21 03:50 36.4 C L 70 16 143/91 H 97 09/18/21 23:46 71 09/18/21 22:53 36.6 C 70 20 134/87 97 09/18/21 19:08 36.0 C L 70 16 132/82 98 09/18/21 18:51 36.4 C L 71 20 167/95 H 09/18/21 15:55 36.8 C 70 18 114/75 94 09/18/21 14:52 70 Pre-Sedation Airway Assessment Smoking Status: Never smoker Hx Sleep Apnea: No Short, Thick Neck: No Thyromental Distance: > or= 3.5 Finger Breadths Oral Cavity: + WNL Mallampati Class: III ASA: ASA3 NPO Status Date of Last Intake of Fluids: 09/18/21 Date of Last Intake of Solid Food: 09/18/21 Notes The planned sedation has been discussed with the patient. Informed Consent was obtained. I have identified the patient, determined the appropriateness of sedation and have assessed the patient immediately prior to the procedure. All medicine(s) and interventions are by my order.
--- NOTE | 2021-09-19 12:11 | Cardiac Catheterization ---
Cardiac Cath Procedure Full Procedure Date September 19, 2021 Pre-Procedure Diagnosis Pre-Procedure Diagnosis: Non STEMI and Arrhythmia AUC Score AUC Score: 07 Post-Procedure Diagnosis Post-Procedure Diagnosis: Mild CAD Procedure(s) Performed Procedure(s) Performed: Coronary Angiography, Ultrasound Guided Vascular Access and Procedure Sales Teacher Los Asif MD, PhD Estimated Blood Loss Estimated Blood Loss: 15 ml Medication(s) Medication(s): versed, fentanyl, lidocaine, nicardipine, nitroglycerin Summary of Findings LMT: large, short. Mild luminal irregularities LAD: large, trans apical. P-mild, M-up to 30%, D-MLI D1-small, D2-large, branching-MLI LCx: large, domnant. P, M, D in AV groove ok. OM1-small OM2- large and branching. Mild luminal irregularities PLB-small to medium. ok L-PDA: medium to large. OK Ramus: small to medium. MLI RCA medium non dominant. No disease. Right radial access with 6F radial glide insertion. Vascular loop, therefore, changed to R femoral access. US guided vascular access of R femoral artery. 5F sheath placed. L coronary angio in orthogonal views with 5F JL5 R coronary angio in orthogonal views with 5F JR4 caths out limited femoral angiography showed sheath at bifurcation. Decision for manual compression. R radial hemostasis with TR band R femoral hemostasis with manual compression hemodynamically stable. return to recovery. Hemodynamics Rest Ao:: 123/75 mm Hg, mean 98 mm Hg Final Ao: 158/103 mm Hg LV: NA Recommendations Recommendations: Medical Therapy and/or Counseling Radiation Exposure (mGy) 1163 mGy Contrast (mls) 110 mls Procedural Complication(s) none Disposition Water Resource Project Manager Holding/Recovery I attest to the content of the Intraoperative Record and any orders documented therein. Any exceptions are noted below. ACC Data: Water Resource Project Manager Cardiac Status 81 yo DM with hx DCMO and ICD presented with recurrent syncope. VT on ICD paced out. NSTEMI by routine troponin evaluation. No angina. CAD Presenation: Non STEMI Anginal Classification: No Symptoms Heart Failure: No Cardiogenic Shock within 24 Hours: No Cardiac Arrest within 24 Hours: Yes Imaging Studies Past 6 Months: No Stress Studies Past 6 Months: No Standard Exercise Test: No STEMI OR Non-STEMI Symptom Onset Date: 09/18/21 Coronary Anatomy Dominant: Left Left Main (% Stenosis): Mid LAD (% Stenosis): Proximal (diffuse mild) and Mid (focal 30%) D1 (% Stenosis): Normal D2 (% Stenosis): Normal Circumflex (% Stenosis): Normal OM1 (% Stenosis): Normal OM2 (% Stenosis): Normal L PL1 (% Stenosis): Normal L PDA (% Stenosis): Normal RCA (% Stenosis): Normal Ramus (% Stenosis): Normal Diagnostic Physicians Name: Los Asif MD, PhD Closure Device Percutaneous Entry Location: both R radial and R femoral Recommendations: Medical Therapy and/or Counseling
[2021-09-19] MEDS ORDERED: amLODIPine BESYLATE 5 MG TAB PO ONE (14:55)
[2021-09-19] MEDS: AMIODARONE 200 MG TAB PO SCH (16:52)
--- NOTE | 2021-09-19 22:21 | Electrocardiogram Report ---
Test Reason : Blood Pressure : / mmHG Vent. Rate : 070 BPM Atrial Rate : 070 BPM P-R Int : 166 ms QRS Dur : 182 ms QT Int : 488 ms P-R-T Axes : 000 -65 098 degrees QTc Int : 527 ms AV dual-paced rhythm Biventricular pacemaker detected Abnormal ECG When compared with ECG of 18-SEP-2021 03:20, No significant change was found Confirmed by Catrachito Enciso ([id number]) on 09/19/2021 10:21:14 PM Referred By: REFERRED SELF Confirmed By:Catrachito Enciso
[2021-09-20] MEDS ORDERED: AMIODARONE 200 MG TAB PO SCH ×2
[2021-09-20] MEDS: LEVOTHYROXINE SODIUM 100 MCG TABLET PO SCH (06:33)
[2021-09-20 07:37] LABS: Hematocrit (blood only) 42.2 % (42-52); Hemoglobin 14.9 g/dL (14.0-18.0); Mean Corpuscular Hemoglobin 30.6 pg (25-34); Mean Corpuscular Hgb Conc 35.3 g/dL (32-36); Mean Corpuscular Volume 86.7 fL (80-100); Mean Platelet Volume 10.9 fL (7.4-10.4); Platelet Count 184 K/uL (130-400); RDW Coefficient of Variation 13.3 % (11.5-14.5); RDW Standard Deviation 42.5 fL (36.4-46.3); Red Blood Count 4.87 M/uL (4.7-6.1); White Blood Count 8.95 K/uL (4.8-10.8)
[2021-09-20 09:28] LABS: BUN Creatinine Ratio 17.6 (10-20); Calcium 9.4 mg/dl (8.5-10.1); Creatinine Clr Calc Pharmacy 46.1 ml/min; Est GFR (African American) 56.2 ml/min; Est GFR (Non-African American) 48.5 ml/min; Potassium 4.8 mmol/L (3.5-5.1)
[2021-09-20] MEDS: INSULIN ASPART PER UNIT SC SCH ×2 (09:30→12:45)
[2021-09-20] MEDS: APIXABAN 2.5 MG TAB PO SCH (09:36)
[2021-09-20] MEDS: METOPROLOL TARTRATE 25 MG TAB PO SCH (09:41)
[2021-09-20] MEDS: ATORVASTATIN 20 MG TAB PO SCH (09:42)
[2021-09-20] MEDS: MULTIVITAMIN TAB PO SCH (09:42)
[2021-09-20] MEDS: AMIODARONE 200 MG TAB PO SCH (09:42)
--- NOTE | 2021-09-20 11:16 | Discharge Summary ---
Date of Service September 20, 2021 Admission HPI Per Admitting Provider Patient is 81-year-old male with PMH HTN, HLD, diet controlled DM II, CKD, CHF, h/o pacemaker/ICD, atrial fibrillation on Eliquis, h/o prostate CA s/p surgery presented to ER with complaint of dizziness today. Patient reports this morning was sitting playing cards when he started to feel dizzy and reports that he "blacked out". He states this afternoon was showering when he started to have dizziness, shortness of breath and felt like his heart was racing and reports he was able to sit down prior to having a syncopal episode. It is reported patient was taken to [facility] and found to have wide-complex tachycardia, rate 180 on EKG. Reports upon EMS arrival patient was in paced rhythm. Patient denies feeling any shocks today. Denies chest pain. Patient reports in 2018 developed SOB and was seen at [facility] in [place], [place] and was diagnosed with CHF. Patient states had cardiac cath and reports was told it was ok. He reports had pacer/ICD placed during that admission. Denies fever/chills, diaphoresis, N/V/D/C, [place], vision changes, neck pain, cough, sore throat, choking, otalgia, rhinorrhea, abdominal pain, paresthesias, extremity weakness, extremity edema, rashes, urinary symptoms. In ER patient had paced rhythm upon arrival, vitals stable. Had device interrogated and reported episodes VT with paced termination, no shocks. In ER patient reports feeling well. Admission Exam Per Admitting Provider General: no distress, WDWN Head: normocephalic, atraumatic Eyes: PERRL, EOM's intact, conjunctiva non-injected, anicteric ENT: normal inspection external ears, nose, mucous membranes moist Neck: supple, trachea midline Lungs: clear, no respiratory distress, no wheezing/rhonchi/rales CV: RRR, no murmur, no pretibial edema Abd: normal BS, soft, non-tender Ext: no cyanosis, no calf tenderness Neuro: A&O x 3, no focal deficits noted, normal affect Skin: warm, dry Principal Diagnosis (1) Ventricular tachycardia (paroxysmal): (2) History of CHF (congestive heart failure): (3) ICD (implantable cardioverter-defibrillator) in place: (4) Elevated troponin: (5) Hyponatremia: (6) CKD (chronic kidney disease): (7) Atrial fibrillation: (8) Diabetes mellitus, type II: (9) HTN (hypertension): (10) HLD (hyperlipidemia): (11) Prostate cancer: Discharge Data Allergies Allergy/AdvReac Type Severity Reaction Status Date / Time glimepiride Allergy reported Unverified 09/17/21 18:22 hypoglycemia linagliptin [From Tradjenta] Allergy Unknown Unverified 09/17/21 18:06 metformin Allergy itching Unverified 09/17/21 18:22 saxagliptin [From Onglyza] Allergy Unknown Unverified 09/17/21 18:06 Consultations 09/17/21 16:53 ED Decision to Admit Stat 09/17/21 20:16 Consult Cardiology Routine 09/19/21 08:19 Consult Cardiac Catheterization Routine Procedures Performed Operation Date: 09/19/21 10:30 Actual Procedures s Cineradiography w/Routine Exam - Los Asif MD, PhD p Cath, Coronaries ONLY (no LV)(Right) - Los Asif MD, PhD Ordered Studies 09/19/21 10:22 CL Cath Imgs for PACS use only Routine Hospital Course (1) Ventricular tachycardia (paroxysmal): (2) History of CHF (congestive heart failure): (3) ICD (implantable cardioverter-defibrillator) in place: (4) Elevated troponin: Patient is 81-year-old male with PMH HTN, HLD, diet controlled DM II, CKD, CHF, h/o pacemaker/ICD, atrial fibrillation on Eliquis, h/o prostate CA s/p surgery presented to ER with complaint of episodes of dizziness, syncope. Denies shocks, denies chest pain or recent illness. Patient reports in 2018 developed SOB and was seen at [facility] in [place], [place] and was diagnosed with CHF. Patient states had cardiac cath and reports was told it was ok. He reports had pacer/ICD placed during that admission. In ER patient had paced rhythm upon arrival, vitals stable. Had device interrogated and reported episodes VT with paced termination, no shocks. In ER patient reports feeling well. Magnesium and TSH labs WNL PCU to monitor Echo Troponin: 0.05, likely demand ischemia secondary to episodes VT. Trend troponin EKG as needed for CP, palpitations Cardiology on case, Amio 400 BID after load, Cardiac Cath today (5) Hyponatremia: Na 123. Unsure of patient's baseline Serum and urine osmolality, serum sodium pending Hold HCTZ Na 132 (6) CKD (chronic kidney disease): Monitor renal functions, avoid nephrotoxic agents when possible (7) Atrial fibrillation: On Eliquis Continue Eliquis, metoprolol tartrate (8) Diabetes mellitus, type II: Now diet controlled Diabetic diet NovoLog sliding scale per protocol (9) HTN (hypertension): Hold HCTZ (10) HLD (hyperlipidemia): Continue atorvastatin (11) Prostate cancer: Status post prostate surgery. Patient reports does not think had prostatectomy. Denies h/o chemo or radiation DVT Prophylaxis On Eliquis Paced on Tele, no Vt Full Code as per discussion with pt Follows with Dr brendan Mckenzie for routine care, DC today on 200 mg Amiodarone BID, Cath revealed no target lesions ROS-No Headache, No Visual Changes, No Nausea, No Vomiting, No Fever, No Chills, No Neck Pain or Stiffness, No Chest Pain, No Palpitations, No SOB, No MARKS, No Cough, No Sputum, No Wheezing, No Abdominal Pain, No Diarrhea, No Hematemesis, No Hemoptysis, No Unexpected Weight Loss, No Flank pain, No Melena, No Hematochezia, No Frequency, No Urgency, No Burning, No Hematuria, No Rashes, No Diaphoresis. Appetite is Normal Physical Exam Gen-AAO x 3, NAD, Afebrile Head-NCAT, EOMI, PERRLA, Anicteric Sclera, No Posterior Pharyngeal Erythema Neck-Supple, No JVD, No Thyromegaly, No Masses, No LAD, No Bruits Lungs-Clear to Auscultation Bilaterally, No Rales, No Rhonchi, No Wheezing, No Crepitus Chest-No S4, +S1, +S2, No S3, +Murmur, No Rubs, No Gallops, No Ectopy Abdomen-Soft, Bowel Sounds Present, Non Tender, Non Distended, No Hepatomegaly, No Splenomegaly, No Palpable Masses, No Rebound, No Rigidity, No Guarding Musculoskeletal-Full Range of Motion Bilaterally, No CVAT Extremities-No Cyanosis, No Clubbing, No Edema Nuero-Cranial Nerves II-XII grossly intact, Motor WNL, DTRs WNL, Strength WNL, Non Focal Psych-Normal Mood Total Time Total Time Spent Total Time Spent (In Minutes): 45 mins Total Time Includes: Examination of the Patient, Discharge Planning, Medication Reconciliation and Communication With Other Providers Discharge Plan Discharge Items [facility] Disposition: [facility] Reason For Visit: [place] Discharge Diagnosis: (1) Ventricular tachycardia (paroxysmal): (2) History of CHF (congestive heart failure): (3) ICD (implantable cardioverter-defibrillator) in place: (4) Elevated troponin: (5) Hyponatremia: (6) CKD (chronic kidney disease): (7) Atrial fibrillation: (8) Diabetes mellitus, type II: (9) HTN (hypertension): (10) HLD (hyperlipidemia): (11) Prostate cancer: Condition on Discharge: Good Health Concerns: Non-compliance with Amiodarone Activity: Resume your previous activity Lifting: Gradually increase as tolerated Bathing: No limitations Exercise/Sports: Gradually increase as tolerated Weightbearing: Full weightbearing Non-emergency contact: Primary Care Provider and Poiser Call non-emergency contact if: you have any medication questions Follow-up/Referrals: Jonah CRESPO [Primary Care Provider] - Diet: Heart Healthy Addtl Attending Provider Instructions: None Pending Studies at Discharge: No Stand-Alone Forms: [facility] [employer] Patient informed of condition?: Yes Discharge Level of Care: Other Communicable Disease: No Discharge Prognosis: Stable Lines: None Urinary Catheter: No Medications and DC Order Prescriptions: New amiodarone 200 mg Tablet 200 mg PO BIDM Qty: 60 RF: 0 Continued Eliquis 2.5 mg Tablet 2.5 mg PO BID RF: 0 bimatoprost 0.03 % Drops 1 drp OPB DAILY RF: 0 metoprolol tartrate 25 mg Tablet 12.5 mg PO BID RF: 0 atorvastatin 20 mg Tablet 20 mg PO DAILY RF: 0 multivitamin [Multiple Vitamin] Tablet 1 tab PO DAILY RF: 0 levothyroxine 100 mcg Tablet 100 mcg PO QAM RF: 0 Discontinued hydrochlorothiazide 25 mg Tablet 25 mg PO DAILY RF: 0 Discharge Orders: Discharge Order (Routine); Ordered 09/20/21 Ordered By: Joshua Villaseñor/Other Patient Handouts: Managing Type 2 Diabetes Admission Data Admit Date/Time: 09/17/21 17:48 Attending Provider: Joshua De Admit Provider: Tavo Berger Primary Care Provider: Jonah CRESPO
--- NOTE | 2021-09-20 11:46 | Cardiology Progress Note ---
Date of Service September 20, 2021 Assessment & Plan (1) Ventricular tachycardia (paroxysmal): (2) Elevated troponin: (3) Hyponatremia: (4) Diabetes mellitus, type II: (5) Chest pain: (6) NICM (nonischemic cardiomyopathy): (7) Mitral regurgitation: Plan: No further events since admission, patient tolerating amiodarone well. I have discontinued the IV Cardiac catheterization revealed no significant obstructive lesions. Patient remains without arrhythmia after amiodarone load. Patient now refusing p.o. amiodarone saying that it left him feeling "incapacitated "in the past Recommend amiodarone 200 mg twice daily and follow-up as an outpatient. Continue all other outpatient medications. Okay to discharge from a cardiac standpoint. Admission and Anticipated Discharge Date Admission Date: September 17, 2021 Subjective Patient seen and examined, chart reviewed. No further episodes of palpitations, lightheadedness or syncope overnight. Still with a dull 2 out of 10 central chest discomfort. Telemetry reviewed: AV sequential pacing. Review of Systems Review of Systems: All systems reviewed & are unremarkable except as noted in HPI & below Physical Exam Physical Exam: General: Awake, alert and oriented x 3. No acute distress. HEENT: Normocephalic, atraumatic. Pupils equal, round and reactive to light and accommodation. Extraocular muscles are intact. Anicteric sclera. Moist mucous membranes. Neck: No JVD. No bruit. Cardiovascular: Regular. Positive S-4. Normal S-1 and S-2. No S-3. 3/6 holosystolic ejection murmur, left sternal border, mid-clavicular line with radiation to the axilla. No rubs. Pulmonary: Clear to auscultation bilaterally. No rales, rhonchi, or wheezing. Abdomen: Bowel sounds x 4, soft. No rebound, guarding or tenderness. No organomegaly. Extremities: No clubbing, cyanosis or edema. +2 pedal pulses bilaterally. Skin: Warm and dry. Results & Data ([facility]) Vital Signs (Past 12 Hours) Vital Signs Temp Pulse Resp BP Pulse Ox 09/20/21 09:47 69 98/65 L 09/20/21 08:03 36.5 C 74 18 109/67 96 09/20/21 03:23 36.5 C 69 18 92/55 L 99
== END 2021-09-20 16:45 | DRG 287 ==
LOC: ED 15:45 → 2S 17:48 → SUATTDRO 17:48 → 2S 19:19
PROC: CLB.CCO (2021-09-19 10:30)

== ENCOUNTER 2022-01-30 20:24 | Observation (INO) ==
--- NOTE | 2022-01-30 20:55 | Emergency Department Note ---
Impression & Plan Ventricular tachycardia, Heart palpitations, Abnormal CT of the head ED Provider Note NAME: BEBETO [id number] MORAIMA AGE: 82 SEX: M : 1940 ARRIVES VIA: Ambulance INFORMANT: Patient, ED PROVIDER(S): Ted Atkinson DO CHIEF COMPLAINT: Palpitations HPI: The patient is an 82-year-old male who presented to the emergency department from the alf for an evaluation of palpitations. Patient has a history of atrial fibrillation as well as a pacemaker defibrillator placement for ventricular tachycardia. He does take oral anticoagulation. He states he has been compliant with his outpatient medication regimen. He states approxi mately 1-/2 to 2 hours prior to arrival he noticed an episode where his vision became very blurry. He then became very weak and started having shortness of breath and palpitations. [facility] and then sent to the emergency department for further evaluation. The patient denies having any chest pain or difficulty breathing at this time. He states his symptoms only lasted approximately 5 to 10 minutes. He states he has had no recent falls or trauma. He has no headache. He denies having any lower extremity swelling greater than usual. He denies having any black or bloody bowel moods. ROS: See above HPI for pertinent positives & negatives. A total of 10 systems reviewed and were otherwise negative. PAST MEDICAL HISTORY: See Below PAST SURGICAL HISTORY: See Below FAMILY HISTORY: See Below SOCIAL HISTORY: See Below HOME MEDICATIONS: See Below ALLERGIES: See Below VITALS: See Below PHYSICAL EXAMINATION: GENERAL: Patient is awake alert in no acute distress patient is resting comfortably and showing no signs of anxiety EYES: The conjunctivae are clear. The pupils are round and reactive. EARS, NOSE, MOUTH AND THROAT: The nose is without any evidence of any deformity. Mucous membranes are moist. Tongue is midline. NECK: The neck is nontender and supple. RESPIRATORY: Normal respiratory effort is noted there is no evidence of wheezing rhonchi or rales CARDIOVASCULAR: Regular rate and rhythm noted there no murmurs rubs or gallops normal S1 normal S2. GASTROINTESTINAL: The abdomen is soft. Abdomen is nontender. MUSCULOSKELETAL/EXTREMITIES: There is no evidence of gross deformity full range of motion is noted in the hips and shoulders. SKIN: There is no obvious evidence of any rash. There are no petechiae, pallor or cyanosis noted. NEUROLOGIC: Patient is awake alert and oriented x3 there is no facial droop. Strength is symmetric. MEDICAL DECISION MAKING: Patient is an 82-year-old male who presented to the emergency department with multiple complaints. The patient states he was having palpitations but also had an episode of blurry vision. The patient had no symptoms upon arrival to the emergency department. The patient had a recently placed pacemaker defibrillator which was interrogated in the emergency department. It appears the patient's symptoms were likely secondary to an episode of ventricular tachycardia that lasted approximately 4 minutes. The patient also had an abnormal CT of the head. There was the possibility of bleeding noted but this is very small and unfortunately we have no previous to compare. I discussed patient's laboratory and radiographic studies with the on-call [facility] hospitalist. There was discussion about holding the patient's blood thinner and repeating the CT of the head otherwise the patient may require further inpatient management and adjustment of his pacemaker defibrillator. Triage Nursing notes reviewed. Prior medical records reviewed Vital Signs: reviewed and remarkable for no significant abnormalities Differential diagnosis: Premature contractions, electrolyte abnormality, cardiac dysrhythmia, thyroid dysfunction, pulmonary embolism, infection, gastrointestinal, as well as other pathologies. ER treatment provided: See below Diagnostics interpreted by me: ECG: EKG was obtained in the emergency department. My interpretation is dual- chamber pacemaker at 70 bpm. There were no bishop paiute beats. This was compared to a tracing from October 12, 2021. No changes were noted. An EKG was done at [facility]. My interpretation is paced rhythm at 70 bpm. PVCs were noted. There is no change compared to the tracing in the emergency department. Cardiac Monitoring: An order was placed for continuous cardiac monitoring. The monitor shows a rate of 72 bpm with paced rhythm. Laboratory studies: As stated above and show below. Imaging studies: See below Consultation(s): I discussed this case with Dr. Dunbar Past Med/Surg History Medical History Atrial fibrillation CKD (chronic kidney disease) Diabetes mellitus, type II History of CHF (congestive heart failure) HLD (hyperlipidemia) HTN (hypertension) ICD (implantable cardioverter-defibrillator) in place Prostate cancer Surgical History History of cardiac cath reported was in 2018 at [facility] in [place], [place] History of prostate surgery Family History Father Stroke Social History Smoking Status: Never smoker Hx Alcohol Use: No Hx Substance Use: No Preferred Language: Ukrainian Communication Ability: Effective Facing Machine Operator Required: No Beliefs That Will Affect Care: None Current Living Situation: Other Current Living Situation Comment: [facility]UGH[facility] Feels Safe at Home: Yes Assistive Devices: Glasses and Walker Allergies Allergies Allergy/AdvReac Type Severity Reaction Status Date / Time amiodarone Allergy Verified 11/10/21 13:53 glimepiride Allergy reported Unverified 11/10/21 13:53 hypoglycemia linagliptin [From Tradjenta] Allergy Unknown Unverified 11/10/21 13:53 metformin Allergy itching Unverified 11/10/21 13:53 saxagliptin [From Onglyza] Allergy Unknown Unverified 11/10/21 13:53 Home Meds Home Medications Medication Instructions Recorded Confirmed apixaban 2.5 mg tablet (Eliquis) 2.5 mg PO BID 09/17/21 11/10/21 atorvastatin 20 mg tablet 20 mg PO DAILY 09/17/21 11/10/21 bimatoprost 0.03 % eye drops 1 drp OPB DAILY 09/17/21 11/10/21 levothyroxine 100 mcg tablet 100 mcg PO QAM 09/17/21 11/10/21 metoprolol tartrate 25 mg tablet 12.5 mg PO BID 09/17/21 11/10/21 multivitamin 1 tab PO DAILY 09/17/21 11/10/21 Results & Data (ED) Vital Signs Vital Signs - 24 hr 01/30/22 20:34 01/30/22 21:00 01/30/22 21:04 Temperature Temperature Source Pulse Rate 70 Respiratory Rate 16 Respiratory Effort / Characteristics Non-Labored Spontaneous Non-Labored Spontaneous Respiratory Depth Normal Normal Respiratory Pattern Regular Blood Pressure 134/91 Blood Pressure Mean 105 Blood Pressure Position Semi-fowlers Pulse Oximetry 97 Oxygen Delivery Method Room Air Room Air Room Air Sepsis New/Unexplained Change in Mental Status No Sepsis Action Taken by Nursing No Action Required 01/30/22 21:05 01/30/22 21:07 Temperature 36.9 C Temperature Source Oral Pulse Rate 72 Respiratory Rate 16 Respiratory Effort / Characteristics Respiratory Depth Respiratory Pattern Blood Pressure Blood Pressure Mean Blood Pressure Position Pulse Oximetry 99 Oxygen Delivery Method Room Air Sepsis New/Unexplained Change in Mental Status Sepsis Action Taken by Halfway Medications Current Medication List: was personally reviewed by me Laboratory Data Attestation: I reviewed the patient's lab results. Result diagrams: 01/30/22 20:43 01/30/22 20:43 Lab Results 01/30/22 01/30/22 01/30/22 Range/Units 20:43 20:43 20:43 WBC 6.19 (4.8-10.8) K/ul RBC 4.16 L (4.63-6.08) M/uL Hgb 12.6 L (14.0-18.0) g/dl Hct 38.1 L (40.1-51.0) % MCV 91.6 (80.0-100.0) fL MCH 30.3 (25.0-34.0) pg MCHC 33.1 (32.0-36.0) g/dL RDW Std Deviation 43.2 (36.4-46.3) fL RDW Coeff of Gisele 13.1 (11.5-14.5) % Plt Count 165 (130-400) K/uL MPV 12.1 (9.4-12.4) fL Immature Gran % (Auto) 0.5 % Neut % (Auto) 63.5 % Lymph % (Auto) 20.2 % Hendry % (Auto) 10.8 % Eos % (Auto) 4.5 % Baso % (Auto) 0.5 % Neut # (Auto) 3.93 (1.4-6.5) K/uL Lymph # (Auto) 1.25 (1.2-3.4) K/uL Hendry # (Auto) 0.67 (0.24-0.82) K/uL Eos # (Auto) 0.28 (0-0.50) K/uL Baso # (Auto) 0.03 (0-0.2) K/uL Immature Gran # (Auto) 0.03 H (0.00-0.02) K/uL PT 11.8 (9.0-12.0) Seconds INR 1.1 (0.9-1.1) APTT 28.2 (21.0-31.0) Seconds PTT Ratio 1.0 Sodium 138 (136-145) mmol/L Potassium 4.6 (3.5-5.1) mmol/L Chloride 106 (98-107) mmol/L Carbon Dioxide 28 (21-32) mmol/L Anion Gap 4 (3-11) BUN 28 H (6-23) mg/dl Creatinine 1.34 (0.6-1.4) mg/dl Est Cr Clr Drug Dosing Not Reportable Est GFR ( Amer) 56.8 ml/min Est GFR (Non-Af Amer) 49.0 ml/min BUN/Creatinine Ratio 20.9 H (10-20) Glucose 169 H (70-99(Fasting)) mg/dl Calcium 9.6 (8.5-10.1) mg/dl Magnesium 2.1 (1.7-2.4) mg/dl Total Bilirubin 0.6 (0.2-1.0) mg/dl AST 21 (13-39) U/L ALT 15 (7-52) U/L Alkaline Phosphatase 88 (34-104) U/L Troponin I High Sens 30.3 H (0-20) pg/ml Total Protein 6.4 (6.0-8.3) gm/dl Albumin 3.9 (3.4-5.0) gm/dl Globulin 2.5 (2.5-4.0) gm/dl Albumin/Globulin Ratio 1.6 (0.9-2) TSH (0.300-4.500) uIu/ml SARS-CoV-2, RNA, NAAT (NEGATIVE) 01/30/22 01/30/22 Range/Units 20:43 21:34 WBC (4.8-10.8) K/ul RBC (4.63-6.08) M/uL Hgb (14.0-18.0) g/dl Hct (40.1-51.0) % MCV (80.0-100.0) fL MCH (25.0-34.0) pg MCHC (32.0-36.0) g/dL RDW Std Deviation (36.4-46.3) fL RDW Coeff of Gisele (11.5-14.5) % Plt Count (130-400) K/uL MPV (9.4-12.4) fL Immature Gran % (Auto) % Neut % (Auto) % Lymph % (Auto) % Hendry % (Auto) % Eos % (Auto) % Baso % (Auto) % Neut # (Auto) (1.4-6.5) K/uL Lymph # (Auto) (1.2-3.4) K/uL Hendry # (Auto) (0.24-0.82) K/uL Eos # (Auto) (0-0.50) K/uL Baso # (Auto) (0-0.2) K/uL Immature Gran # (Auto) (0.00-0.02) K/uL PT (9.0-12.0) Seconds INR (0.9-1.1) APTT (21.0-31.0) Seconds PTT Ratio Sodium (136-145) mmol/L Potassium (3.5-5.1) mmol/L Chloride (98-107) mmol/L Carbon Dioxide (21-32) mmol/L Anion Gap (3-11) BUN (6-23) mg/dl Creatinine (0.6-1.4) mg/dl Est Cr Clr Drug Dosing Est GFR ( Amer) ml/min Est GFR (Non-Af Amer) ml/min BUN/Creatinine Ratio (10-20) Glucose (70-99(Fasting)) mg/dl Calcium (8.5-10.1) mg/dl Magnesium (1.7-2.4) mg/dl Total Bilirubin (0.2-1.0) mg/dl AST (13-39) U/L ALT (7-52) U/L Alkaline Phosphatase (34-104) U/L Troponin I High Sens (0-20) pg/ml Total Protein (6.0-8.3) gm/dl Albumin (3.4-5.0) gm/dl Globulin (2.5-4.0) gm/dl Albumin/Globulin Ratio (0.9-2) TSH 0.851 (0.300-4.500) uIu/ml SARS-CoV-2, RNA, NAAT NEGATIVE (NEGATIVE) Imaging Data Radiologist's Impression: Chest X-Ray 01/30/22 20:37 SINGLE VIEW CHEST CLINICAL HISTORY: Generalized weakness. FINDINGS: 2 AP, portable, upright chest radiographs are compared to study dated 10/12/2021. A 3-lead cardiac AICD is unchanged in position. The heart is enlarged noting atherosclerotic calcification of the thoracic aorta. The pulmonary vasculature is noncongested. Emphysema is suspected. There is bibasilar sca rring/atelectasis. No airspace consolidation or large pleural effusion is identified. No pneumothorax is seen. The skeletal structures are osteopenic. The bony thorax is grossly intact. Surgical anchors are noted in the right humeral head. IMPRESSION: 1. Cardiomegaly and AICD without radiographic evidence of congestive failure. 2. Suspect emphysema. 3. No airspace consolidation or large pleural effusion is identified.. ACT 112: Negative or not required by law. Electronically signed by: Austin Ferrari M.D. 01/30/2022 8:[address] 01/30/22 20:37 CT SCAN OF THE BRAIN WITHOUT IV CONTRAST CLINICAL HISTORY: Generalized weakness. Blurry vision and palpitations. COMPARISON STUDY: No priors. TECHNIQUE: Unenhanced axial CT scan of the brain is performed from the vertex to the skull base. A dose lowering technique was utilized adhering to the principles of ALARA. CT DOSE: 614.27 mGy.cm FINDINGS: Brain parenchyma: There is a 6 mm indeterminate hyperdense focus in the left periventricular white matter seen on image #18. There is age-related involutional change noting mild subcortical and periventricular microangiopathic disease. There is no mass effect or evidence of acute territorial ischemia by CT criteria. Yeh-white matter differentiation is preserved. No extra-axial fluid collection is seen. Ventricles, sulci, cisterns: Prominent secondary to involutional change. Intracranial vasculature: There is atherosclerotic calcification of the cavernous carotid and vertebral arteries. Calvarium: Unremarkable. Sinuses and mastoids: There is mild mucosal thickening within the ethmoid sinuses. The remaining visualized paranasal sinuses are clear. The mastoid air cells are well pneumatized. Orbits: The bony orbits are grossly intact. IMPRESSION: 1. There is an indeterminant 6 mm hyperdense focus in the left periventricular white matter. This could represent a cavernoma, a calcification, or possibly a tiny acute hemorrhage. This could be correlated with any prior outside imaging studies to assess for chronicity. If there is clinical concern for acute hem orrhage consider short-term (12-24 hour) CT follow-up. 2. No additional findings are concerning for acute hemorrhage. There is no mass effect or evidence of acute territorial ischemia by CT criteria. ACT 112: Negative or not required by law. Electronically signed by: Austin Ferrari M.D. 01/30/2022 9:04 PM Discharge Plan Visit Data Chief Complaint: Cardiac Assessment Stated Complaint: cardiac symptoms ED Provider: Ted Atkinson Discharge Problem: Ventricular tachycardia, Heart palpitations, Abnormal CT of the head Patient Disposition: Being Evaluated by Hospitalist Forms Stand Alone Forms: [facility] Prescriptions Prescriptions: No Action Eliquis 2.5 mg Tablet 2.5 mg PO BID bimatoprost 0.03 % Drops 1 drp OPB DAILY metoprolol tartrate 25 mg Tablet 12.5 mg PO BID atorvastatin 20 mg Tablet 20 mg PO DAILY multivitamin Tablet 1 tab PO DAILY levothyroxine 100 mcg Tablet 100 mcg PO QAM Referrals Referrals: Jonah CRESPO [Primary Care Provider] -
--- NOTE | 2022-01-30 20:58 | XRay Report ---
SINGLE VIEW CHEST CLINICAL HISTORY: Generalized weakness. FINDINGS: 2 AP, portable, upright chest radiographs are compared to study dated 10/12/2021. A 3-lead c ardiac AICD is unchanged in position. The heart is enlarged noting atherosclerotic calcification of t he thoracic aorta. The pulmonary vasculature is noncongested. Emphysema is suspected. There is bibasi lar scarring/atelectasis. No airspace consolidation or large pleural effusion is identified. No pneum othorax is seen. The skeletal structures are osteopenic. The bony thorax is grossly intact. Surgical anchors are noted in the right humeral head. IMPRESSION: 1. Cardiomegaly and AICD without radiographic evidence of congestive failure. 2. Suspect emphysema. 3. No airspace consolidation or large pleural effusion is identified.. ACT 112: Negative or not required by law. Electronically signed by: Austin Ferrari M.D. 01/30/2022 8:57 PM
[2022-01-30 21:00] LABS: Basophils # (auto) 0.03 K/uL (0-0.2); Basophils % (auto) 0.5 %; Eosinophils # (auto) 0.28 K/uL (0-0.50); Eosinophils % (auto) 4.5 %; Hematocrit (blood only) 38.1 % (40.1-51.0); Hemoglobin 12.6 g/dl (14.0-18.0); Immature Granulocytes # (auto) 0.03 K/uL (0.00-0.02); Immature Granulocytes % (auto) 0.5 %; Lymphocytes # (auto) 1.25 K/uL (1.2-3.4); Lymphocytes % (auto) 20.2 %; Mean Corpuscular Hemoglobin 30.3 pg (25.0-34.0); Mean Corpuscular Hgb Conc 33.1 g/dL (32.0-36.0); Mean Corpuscular Volume 91.6 fL (80.0-100.0); Mean Platelet Volume 12.1 fL (9.4-12.4); Monocytes # (auto) 0.67 K/uL (0.24-0.82); Monocytes % (auto) 10.8 %; Neutrophils # (auto) 3.93 K/uL (1.4-6.5); Neutrophils % (auto) 63.5 %; Platelet Count 165 K/uL (130-400); RDW Coefficient of Variation 13.1 % (11.5-14.5); RDW Standard Deviation 43.2 fL (36.4-46.3); Red Blood Count 4.16 M/uL (4.63-6.08); White Blood Count 6.19 K/ul (4.8-10.8)
--- NOTE | 2022-01-30 21:07 | CT Scan Report ---
CT SCAN OF THE BRAIN WITHOUT IV CONTRAST CLINICAL HISTORY: Generalized weakness. Blurry vision and palpitations. COMPARISON STUDY: No priors. TECHNIQUE: Unenhanced axial CT scan of the brain is performed from the vertex to the skull base. A do se lowering technique was utilized adhering to the principles of ALARA. CT DOSE: 614.27 mGy.cm FINDINGS: Brain parenchyma: There is a 6 mm indeterminate hyperdense focus in the left periventricular white ma tter seen on image #18. There is age-related involutional change noting mild subcortical and perivent ricular microangiopathic disease. There is no mass effect or evidence of acute territorial ischemia b y CT criteria. Yeh-white matter differentiation is preserved. No extra-axial fluid collection is see n. Ventricles, sulci, cisterns: Prominent secondary to involutional change. Intracranial vasculature: There is atherosclerotic calcification of the cavernous carotid and vertebr al arteries. Calvarium: Unremarkable. Sinuses and mastoids: There is mild mucosal thickening within the ethmoid sinuses. The remaining visu alized paranasal sinuses are clear. The mastoid air cells are well pneumatized. Orbits: The bony orbits are grossly intact. IMPRESSION: 1. There is an indeterminant 6 mm hyperdense focus in the left periventricular white matter. This cou ld represent a cavernoma, a calcification, or possibly a tiny acute hemorrhage. This could be correla vero with any prior outside imaging studies to assess for chronicity. If there is clinical concern for acute hemorrhage consider short-term (12-24 hour) CT follow-up. 2. No additional findings are concerning for acute hemorrhage. There is no mass effect or evidence of acute territorial ischemia by CT criteria. ACT 112: Negative or not required by law. Electronically signed by: Austin Ferrari M.D. 01/30/2022 9:04 PM
[2022-01-30 21:14] LABS: INR 1.1 (0.9-1.1); Partial Thromboplastin Time 28.2 Seconds (21.0-31.0); Prothrombin Time 11.8 Seconds (9.0-12.0)
[2022-01-30 21:22] LABS: Alanine Aminotransferase 15 U/L (7-52); Albumin Globulin Ratio 1.6 (0.9-2); Albumin Level 3.9 gm/dl (3.4-5.0); Alkaline Phosphatase 88 U/L (34-104); Anion Gap 4 (3-11); Aspartate Aminotransferase 21 U/L (13-39); BUN Creatinine Ratio 20.9 (10-20); Bilirubin,Total 0.6 mg/dl (0.2-1.0); Blood Urea Nitrogen 28 mg/dl (6-23); Calcium 9.6 mg/dl (8.5-10.1); Carbon Dioxide 28 mmol/L (21-32); Chloride 106 mmol/L (98-107); Est GFR (African American) 56.8 ml/min; Globulin 2.5 gm/dl (2.5-4.0); Glucose 169 mg/dl (70-99(Fasting)); Magnesium 2.1 mg/dl (1.7-2.4); Potassium 4.6 mmol/L (3.5-5.1); Sodium 138 mmol/L (136-145); Total Protein 6.4 gm/dl (6.0-8.3)
[2022-01-30 21:25] LABS: Troponin I High Sensitivity 30.3 pg/ml (0-20)
[2022-01-31] MEDS ORDERED: APIXABAN 2.5 MG TAB PO SCH (01:13)
[2022-01-31] MEDS ORDERED: NITROGLYCERIN SL 0.4 MG/TAB TAB SL PRN (01:13)
[2022-01-31] MEDS ORDERED: ACETAMINOPHEN 325 MG TAB PO PRN (01:13)
[2022-01-31 01:54] LABS: Appearance Urine Clear (Clear); Bilirubin Urine Negative (Negative); Blood Urine Negative (Negative); Color Urine Yellow; Glucose Urine UA Trace (Negative); Ketones Urine Trace (Negative); Leukocyte Esterase Urine Negative (Negative); Nitrite Urine Negative (Negative); Protein Urine Negative (Negative); Urobilinogen Urine Negative (Negative); pH Urine 6.5 (4.5-7.5)
[2022-01-31] MEDS: carvediloL 3.125 MG TAB PO SCH ×2 (02:06→09:01)
--- NOTE | 2022-01-31 03:44 | History and Physical Report ---
DATE OF ADMISSION: 01/30/2022. CHIEF COMPLAINT: Dizzy. HISTORY OF PRESENT ILLNESS: This is an 82-year-old male with past medical history significant for nonischemic cardiomyopathy, history of CHF, history of ventricular tachycardia, history of atrial fibrillation, status post pacemaker and ICD, history of diabetes, hyperlipidemia, hypertension, and chronic kidney disease. Echo on 09/18/2021 showed EF of 30% to 35%, moderate mitral regurgitation. Cardiac catheterization on 09/19/2021 showed some luminal irregularities, but no significant obstructive disease. Comes in because of not feeling good. The patient says he had some difficulties seeing, felt dizzy, and short of breath. He thought he was having a heart attack. He notified his authorities and he was brought into the hospital. His ICD was interrogated and was found to have 4 minutes of V-tach, but apparently his ICD did not fire. Currently, feeling better, resting comfortably, hemodynamically stable. Currently denies any headache. Currently, no dizziness, no blurred visions, no earache, no runny nose, no sore throat, no cough. Appetite is okay. No difficulty swallowing. Currently, has some mild 1/10 lower chest pain. No shortness of breath, no nausea, no abdominal pain. Normal bowel and bladder movements. Otherwise, he said last week he walked 35 miles, today morning he walked 3-4 miles. ALLERGIES: AMIODARONE, GLIMEPIRIDE, TRADJENTA, METFORMIN, SAXAGLIPTIN. PAST MEDICAL HISTORY: As mentioned above. PAST SURGICAL HISTORY: Pacemaker, ICD placement, cardiac catheterization, history of prostate surgery. MEDICATIONS: Currently, the patient is on atorvastatin 20 mg p.o. daily, bimatoprost 1 drop ophthalmic daily, Coreg 3.125 mg p.o. b.i.d., Eliquis 2.5 mg p.o. b.i.d., levothyroxine 100 mcg p.o. daily, multivitamin 1 tablet p.o. daily, Entresto 1 tablet p.o. b.i.d. FAMILY HISTORY: Significant for father had stroke. SOCIAL HISTORY: No smoking, no alcohol, no history of substance abuse. Currently living at snf. REVIEW OF SYSTEMS: As per HPI. Rest of the review of systems is negative. PHYSICAL EXAMINATION: GENERAL: The patient is of moderate build, not in acute distress. VITAL SIGNS: Temperature 36.9, pulse 69, respiratory rate 20, blood pressure 139/85, oxygen 97% on room air. HEENT: Pupils equal, round and reactive to light. Oral mucosa moist. NECK: No JVD, no neck masses. CARDIOVASCULAR: S1 and S2 heard. Regular rate and rhythm. No murmur, no gallop. RESPIRATORY SYSTEM: Normal AP diameter. No accessory muscle use. No wheezing, no crackles. ABDOMEN: Soft, bowel sounds present, nontender, nondistended. CENTRAL NERVOUS SYSTEM: Cranial nerves II-XII grossly intact, nonfocal. EXTREMITIES: No edema, no erythema. LABORATORY DATA: WBC 6.1, hemoglobin 12.6, hematocrit 38.1, platelets 165. PT 11.8, INR 1.1, APTT 28.2. Sodium 138, potassium 4.6, chloride 106, bicarbonate 28, BUN 28, creatinine 1.3, serum glucose 169, calcium 9.6, magnesium 2.1, total bilirubin 0.6, AST 21, ALT 15, alkaline phosphatase 88. Troponin 1 high sensitivity 30.3. TSH 0.8. SARS-CoV-2 rapid test negative. IMAGING DATA: CT of the head, 6 mm indeterminate hyperdense focus on the left periventricular white matter, this could represent a cavernoma , a calcification or possibly a tiny acute hemorrhage. This could be correlated with any prior outside imaging studies to assess for chronicity. If there is a clinical concern for acute hemorrhage, consider a short-term 12- to 24-hour CT followup. No additional findings concerning for acute hemorrhage. Chest x-ray, cardiomegaly and AICD. No evidence of CHF. EKG: Shows AV dual paced rhythm at a rate of 70. ASSESSMENT AND PLAN: This is an 82-year-old male who presents with not feeling well and found to have 4 minutes of ventricular tachycardia. 1. The patient hx of ventricular tachycardia, s/p AICD. Today, AICD interrogation seemed to show 4 minutes of ventricular tachycardia, but AICD did not fire. Currently doing okay. Seems during the episode, he was feeling short of breath, dizzy, and vision problem. Currently asymptomatic. Will monitor in the tele floor. Continue his home medication of Coreg. Will consult cardiology in the a.m. for further recommendations. 2. History of chronic kidney disease stage III: His creatinine is 1.3. Will follow the labs. 3. History of hypertension: Currently on Coreg and Entresto. Will monitor the blood pressure. 4. History of hyperlipidemia: On statin. 5. History of prostate cancer: Status post surgery. 6. History of atrial fibrillation: On Coreg and Eliquis.Holding eliquis for possible tiny brain hemorrhage. 7. Diabetes: Diet controlled. Will follow HbA1c levels. 8. History of chronic systolic congestive heart failure: Currently on Coreg and Entresto. Monitor for volume overload. 9. History of hypothyroidism: On Synthroid. 10. Brain hemorrhage: possibly a tiny acute hemorrhage on ct head. Currently patient has no symptoms.Will follow repeat ct head. Holding eliquis for now. 10. Deep venous thrombosis prophylaxis: scds DISPOSITION: Closely monitor in the tele floor. Level 1 full code. Expect to discharge back to snf when stable. Job ID: [id number] [id number]
[2022-01-31 06:14] LABS: Basophils # (auto) 0.05 K/uL (0-0.2); Basophils % (auto) 0.9 %; Eosinophils # (auto) 0.29 K/uL (0-0.50); Eosinophils % (auto) 5.5 %; Hematocrit (blood only) 36.2 % (40.1-51.0); Hemoglobin 12.1 g/dl (14.0-18.0); Immature Granulocytes # (auto) 0.04 K/uL (0.00-0.02); Immature Granulocytes % (auto) 0.8 %; Lymphocytes # (auto) 1.22 K/uL (1.2-3.4); Mean Corpuscular Hemoglobin 30.2 pg (25.0-34.0); Mean Corpuscular Hgb Conc 33.4 g/dL (32.0-36.0); Mean Corpuscular Volume 90.3 fL (80.0-100.0); Mean Platelet Volume 11.3 fL (9.4-12.4); Monocytes # (auto) 0.65 K/uL (0.24-0.82); Monocytes % (auto) 12.2 %; Neutrophils # (auto) 3.06 K/uL (1.4-6.5); Neutrophils % (auto) 57.6 %; Platelet Count 142 K/uL (130-400); RDW Standard Deviation 42.9 fL (36.4-46.3); Red Blood Count 4.01 M/uL (4.63-6.08); White Blood Count 5.31 K/ul (4.8-10.8)
[2022-01-31] MEDS ORDERED: LEVOTHYROXINE SODIUM 100 MCG TABLET PO SCH (06:30)
[2022-01-31 06:41] LABS: Troponin I High Sensitivity 31.1 pg/ml (0-20)
[2022-01-31 06:43] LABS: BUN Creatinine Ratio 18.9 (10-20); Calcium 9.2 mg/dl (8.5-10.1); Creatinine Clr Calc Pharmacy 47.8 ml/min; Est GFR (African American) 60.6 ml/min; Est GFR (Non-African American) 52.3 ml/min; Magnesium 2.1 mg/dl (1.7-2.4); Potassium 4.1 mmol/L (3.5-5.1)
--- NOTE | 2022-01-31 08:15 | Cardiology Consultation ---
Date of Consultation January 31, 2022 Assessment & Plan (1) Ventricular tachycardia: (2) History of CHF (congestive heart failure): (3) NICM (nonischemic cardiomyopathy): (4) ICD (implantable cardioverter-defibrillator) in place: (5) Atrial fibrillation: (6) Anticoagulant long-term use: Plan 1. Ventricular tachycardia: He had sustained monomorphic ventricular tachycardia which was just under the rate cut off of the device. It was therefore not detected but fortunately terminated in about 4 minutes. We did reprogram the device to include his current tachycardia within an antitachycardia pacing zone. 2. Congestive heart failure: He has a history of intermittent fluid retention, he does not seem to have a lot of symptoms of heart failure however his OptiVol reading (the ICD index of fluid retention in the thorax) is elevated. It may be prudent to give him at least 1 dose of diuretic although symptomatically he is not complaining of heart failure symptoms. 3. Nonischemic cardiomyopathy: He has a quite significant nonischemic cardiomyopathy, that was initially treated with biventricular pacing and probably medical therapy although more recently he was on very little. I did switch to carvedilol at a low dose as well as adding Entresto and these should be titrated. His blood pressure is good as is his kidney function therefore I am increasing both of these drugs today. 4. Biventricular ICD: The ICD was evaluated today with interrogation of stored data, evaluation of battery energy and evaluation of sensing and pacing threshold measurements. Pacing and sensing characteristics are stable, battery longevity remains adequate and programming was performed as noted above. 5. Atrial fibrillation: He carries a history of atrial fibrillation, I cannot find much in the way of documentation but he does remain on Eliquis. This has not been detected by his ICD. 6. Anticoagulation: He is on Eliquis, he is actually on a too low of a dose for atrial fibrillation, he should be on 5 mg twice a day since his creatinine is less than 1.5 and his weight is over 60 kg, however since he is in sinus rhythm and has not had atrial fibrillation in over a year I did not change it. History of Present Illness Reason for Consultation: VT Attending Physician: Shine Hanley MD History of Present Illness This is an 82-year-old male who is incarcerated at [facility]. He has history of diabetes mellitus, hyperlipidemia, hypertension and chronic kidney disease. He has a history of nonischemic cardiomyopathy and a biventricular ICD in place, most of his cardiology history took place at [facility] in [facility]. He had an echocardiogram September 12, 2017 with an ejection fraction felt to be 35% and underwent biventricular ICD implantation on September 10, 2017. He presented with congestive heart failure in May 2021 and I have those records which state that his ejection fraction was 45% a year prior, I do not have record of his ejection fraction at that time. I believe he has a history of atrial fibrillation, I do not see it on device monitoring but he is on Eliquis 2.5 mg twice a day. More recently he presented to the [facility] emergency room on September 17, 2021 with several episodes of near syncope and electrocardiogram from the senior care showing a wide-complex tachycardia. Device interrogation indicate that he had 4 episodes of ventricular tachycardia which could be terminated by pacing and shocks were not delivered. He was supposed to be on amiodarone but I believe was not taking it because he tells me he had a severe allergic reaction to it (which does not sound like an allergy) but it was instituted during that hospitalization to control the ventricular tachycardia. However he did not continue taking it presumably due to this allergy. An echocardiogram on September 18, 2021 showed severe left ventricular dysfunction with ejection fraction of 30 to 35%, moderate mitral regurgitation and mild concentric left ventricular hypertrophy. An electrocardiogram at that time shows an AV sequential paced rhythm with a wide QRS complex but appropriate biventricular pacing. He did undergo cardiac catheterization on September 19, 2021 where he had some luminal irregularities but no significant obstructive disease. Device interrogation showed 5 episodes of sustained VT terminated by antitachycardia pacing. He then presented to the [facility] emergency room on October 12, 2021 with palpitations, on device interrogation no arrhythmia was identified. He was therefore discharged from the emergency room. It sounds as though he has been on and off diuretics, he relates the use of hydrochlorothiazide to electrolyte disturbances and hemodynamic symptoms and from his history I cannot tell exactly what that sequence of events was. He was hyponatremic in the hospital on October 12, 2021 and potassium was not reported as the specimen is reported to be hemolyzed. He was also hyponatremic on September 17, 2021, that was when he presented with ventricular tachycardia, however his potassium was normal. He has had some difficulty with fluid retention and edema. He presents now with an episode of presyncope which he describes as some visual changes, feeling very faint and being short of breath. This lasted for several minutes before resolving. He does not recall getting a shock. Device interrogation shows that he had an episode of sustained ventricular tachycardia lasting about 4 minutes, the heart rate was 187 bpm which is 1 bpm less than his detection rate of 188 bpm. He has only had this 1 episode. Following presentation and admission he has been feeling well with no further symptoms and no other complaints. Allergies Allergy/AdvReac Type Severity Reaction Status Date / Time amiodarone Allergy Verified 01/31/22 00:04 glimepiride Allergy reported Unverified 01/31/22 00:04 hypoglycemia linagliptin [From Tradjenta] Allergy Unknown Unverified 01/31/22 00:04 metformin Allergy itching Unverified 01/31/22 00:04 saxagliptin [From Onglyza] Allergy Unknown Unverified 01/31/22 00:04 Home Medications Medication Instructions Recorded Confirmed Type apixaban 2.5 mg tablet (Eliquis) 2.5 mg PO BID 09/17/21 01/30/22 History atorvastatin 20 mg tablet 20 mg PO DAILY 09/17/21 01/30/22 History bimatoprost 0.03 % eye drops 1 drp OPB DAILY 09/17/21 01/30/22 History levothyroxine 100 mcg tablet 100 mcg PO QAM 09/17/21 01/30/22 History multivitamin 1 tab PO DAILY 09/17/21 01/30/22 History carvedilol 3.125 mg tablet 3.125 mg PO BID 01/30/22 01/30/22 History sacubitril 24 mg-valsartan 26 mg 1 tab PO BID 01/30/22 01/30/22 History tablet (Entresto) Patient History Medical History Atrial fibrillation CKD (chronic kidney disease) Diabetes mellitus, type II History of CHF (congestive heart failure) HLD (hyperlipidemia) HTN (hypertension) ICD (implantable cardioverter-defibrillator) in place Prostate cancer Surgical History History of cardiac cath reported was in 2018 at [facility] in [place], [place] History of prostate surgery Family History Father Stroke Social History Smoking Status: Never smoker Hx Alcohol Use: No Hx Substance Use: No Preferred Language: Irish Communication Ability: Effective Director Of Scientific Research Required: No Beliefs That Will Affect Care: None marital status: Single Current Living Situation: Other Current Living Situation Comment: [facility] Other Information That Helps Us Care for You: No Feels Safe at Home: Yes Assistive Devices: Glasses Review of Systems Review of Systems: All systems reviewed & are unremarkable except as noted in HPI & below Physical Exam Physical Exam: Constitutional: Alert, cooperative and in no distress. HEENT: Unremarkable Neck: No jugular venous distention, carotid pulses are normal and equal bilaterally without bruits. Pulmonary: Clear to auscultation bilaterally. Cardiac: Regular rhythm with a grade 2/6 holosystolic murmur at the apex, no gallop or rub. Abdomen: Soft, nontender with normal bowel sounds. Extremities: +1 bilateral pretibial edema. Distal pulses intact. Neurologic: No focal findings. Gait is a little unsteady. Skin: No rash, ecchymoses or petechiae. Results & Data ([facility]) Vital Signs (Past 12 Hours) Vital Signs Temp Pulse Pulse Resp BP BP Pulse Ox 01/31/22 06:30 70 11 L 98 01/31/22 06:24 128/91 01/31/22 06:24 71 19 94 01/31/22 06:01 130/112 H 01/31/22 06:01 70 11 L 96 01/31/22 06:00 70 18 98 01/31/22 05:30 70 12 93 01/31/22 05:00 70 15 95 01/31/22 05:00 138/90 01/31/22 04:30 70 29 H 95 01/31/22 04:00 70 12 96 01/31/22 04:00 116/71 01/31/22 06:59 36.7 C 01/31/22 03:30 70 15 96 01/31/22 03:00 70 15 96 01/31/22 03:00 109/67 01/31/22 02:30 72 15 97 01/31/22 02:00 70 17 95 01/31/22 02:00 130/87 01/31/22 01:30 70 17 98 01/31/22 01:02 71 14 01/31/22 01:02 132/77 01/31/22 01:00 68 13 01/31/22 00:45 36.7 C 70 20 132/77 98 01/31/22 00:36 71 19 96 01/31/22 00:36 108/65 01/31/22 00:30 71 24 95 01/31/22 00:00 77 17 93 01/30/22 23:54 71 21 96 01/30/22 23:54 139/85 01/30/22 23:30 72 17 96 01/30/22 23:00 72 18 97 01/30/22 22:30 70 17 98 01/30/22 22:00 71 13 99 01/30/22 21:30 70 14 96 01/30/22 21:00 70 20 99 01/30/22 20:58 71 17 99 01/30/22 20:58 124/84 01/30/22 20:37 70 21 100 01/30/22 20:37 134/91 01/30/22 20:35 70 15 01/30/22 23:00 69 20 139/85 97 01/30/22 21:07 36.9 C 01/30/22 21:05 72 16 99 01/30/22 21:04 01/30/22 21:00 01/30/22 20:34 70 16 134/91 97 O2 Del Method 01/31/22 06:30 01/31/22 06:24 01/31/22 06:24 01/31/22 06:01 01/31/22 06:01 01/31/22 06:00 01/31/22 05:30 01/31/22 05:00 01/31/22 05:00 01/31/22 04:30 01/31/22 04:00 01/31/22 04:00 01/31/22 06:59 01/31/22 03:30 01/31/22 03:00 01/31/22 03:00 01/31/22 02:30 01/31/22 02:00 01/31/22 02:00 01/31/22 01:30 01/31/22 01:02 01/31/22 01:02 01/31/22 01:00 01/31/22 00:45 Room Air 01/31/22 00:36 01/31/22 00:36 01/31/22 00:30 01/31/22 00:00 01/30/22 23:54 01/30/22 23:54 01/30/22 23:30 01/30/22 23:00 01/30/22 22:30 01/30/22 22:00 01/30/22 21:30 01/30/22 21:00 01/30/22 20:58 01/30/22 20:58 01/30/22 20:37 01/30/22 20:37 01/30/22 20:35 01/30/22 23:00 Room Air 01/30/22 21:07 01/30/22 21:05 Room Air 01/30/22 21:04 Room Air 01/30/22 21:00 Room Air 01/30/22 20:34 Room Air PG Care Time/CCT Total # of Minutes Spent Total Time Spent with Patient: Total time spent is greater than 50% in coordination of care (as documented) at patient's floor/unit and/or counseling patient: Coding Level of Care Code 76708 Initial Inpt Care Lvl 3 Diagnoses Ventricular tachycardia I47.2 History of CHF (congestive heart failure) Z86.79 NICM (nonischemic cardiomyopathy) I42.8 ICD (implantable cardioverter-defibrillator) in place Z95.810 Atrial fibrillation I48.0 Atrial fibrillation type: paroxysmal Anticoagulant long-term use Z79.01 CPT Codes Pacemaker Multi Lead Programming - 52749 ([id number]) (1) Atrial fibrillation Atrial fibrillation type: paroxysmal Qualified Code(s): I48.0 - Paroxysmal atrial fibrillation
[2022-01-31] MEDS ORDERED: VALSARTAN/SACUBITRIL 26/24MG TAB PO SCH (09:00)
[2022-01-31] MEDS ORDERED: ATORVASTATIN 20 MG TAB PO SCH (09:00)
[2022-01-31] MEDS ORDERED: MULTIVITAMIN TAB PO SCH (09:00)
[2022-01-31] MEDS ORDERED: carvediloL 3.125 MG TAB PO ONE (09:30)
[2022-01-31] MEDS ORDERED: VALSARTAN/SACUBITRIL 26/24MG TAB PO ONE (09:30)
[2022-01-31] MEDS ORDERED: FUROSEMIDE INJ 20 MG/2 ML VIAL IV ONE (15:50)
--- NOTE | 2022-01-31 16:49 | Discharge Summary ---
Date of Service January 31, 2022 Admission HPI Per Admitting Provider DATE OF ADMISSION: 01/30/2022. CHIEF COMPLAINT: Dizzy. HISTORY OF PRESENT ILLNESS: This is an 82-year-old male with past medical history significant for nonischemic cardiomyopathy, history of CHF, history of ventricular tachycardia, history of atrial fibrillation, status post pacemaker and ICD, history of diabetes, hyperlipidemia, hypertension, and chronic kidney disease. Echo on 09/18/2021 showed EF of 30% to 35%, moderate mitral regurgitation. Cardiac catheterization on 09/19/2021 showed some luminal irregularities, but no significant obstructive disease. Comes in because of not feeling good. The patient says he had some difficulties seeing, felt dizzy, and short of breath. He thought he was having a heart attack. He notified his authorities and he was brought into the hospital. His ICD was interrogated and was found to have 4 minutes of V-tach, but apparently his ICD did not fire. Currently, feeling better, resting comfortably, hemodynamically stable. Currently denies any headache. Currently, no dizziness, no blurred visions, no earache, no runny nose, no sore throat, no cough. Appetite is okay. No difficulty swallowing. Currently, has some mild 1/10 lower chest pain. No shortness of breath, no nausea, no abdominal pain. Normal bowel and bladder movements. Otherwise, he said last week he walked 35 miles, today morning he walked 3-4 miles. ALLERGIES: AMIODARONE, GLIMEPIRIDE, TRADJENTA, METFORMIN, SAXAGLIPTIN. PAST MEDICAL HISTORY: As mentioned above. PAST SURGICAL HISTORY: Pacemaker, ICD placement, cardiac catheterization, history of prostate surgery. MEDICATIONS: Currently, the patient is on atorvastatin 20 mg p.o. daily, bimatoprost 1 drop ophthalmic daily, Coreg 3.125 mg p.o. b.i.d., Eliquis 2.5 mg p.o. b.i.d., levothyroxine 100 mcg p.o. daily, multivitamin 1 tablet p.o. daily, Entresto 1 tablet p.o. b.i.d. FAMILY HISTORY: Significant for father had stroke. SOCIAL HISTORY: No smoking, no alcohol, no history of substance abuse. Currently living [facility] REVIEW OF SYSTEMS: As per HPI. Rest of the review of systems is negative. Admission Exam Per Admitting Provider GENERAL: The patient is of moderate build, not in acute distress. VITAL SIGNS: Temperature 36.9, pulse 69, respiratory rate 20, blood pressure 139/85, oxygen 97% on room air. HEENT: Pupils equal, round and reactive to light. Oral mucosa moist. NECK: No JVD, no neck masses. CARDIOVASCULAR: S1 and S2 heard. Regular rate and rhythm. No murmur, no gallop. RESPIRATORY SYSTEM: Normal AP diameter. No accessory muscle use. No wheezing, no crackles. ABDOMEN: Soft, bowel sounds present, nontender, nondistended. CENTRAL NERVOUS SYSTEM: Cranial nerves II-XII grossly intact, nonfocal. EXTREMITIES: No edema, no erythema. Principal Diagnosis Ventricular tachycardia Discharge Exam GENERAL: Alert and oriented x3. NAD, on RA. HEENT: No pallor, no icterus. Pupils equal, round and reactive to light. Oral mucosa moist. NECK: No JVD, no neck masses. HEART: S1 and S2 heard. Regular rate and rhythm. No murmur, no gallop. RESPIRATORY SYSTEM: Normal AP diameter. No accessory muscle use. No wheezing, no crackles. ABDOMEN: Soft, bowel sounds present, nontender, no distention. CENTRAL NERVOUS SYSTEM: No facial droop. Speech is clear. Obeys simple commands. Moves extremities. EXTREMITIES: No edema, no erythema seen. Discharge Data Allergies Allergy/AdvReac Type Severity Reaction Status Date / Time amiodarone Allergy Verified 01/31/22 00:04 glimepiride Allergy reported Unverified 01/31/22 00:04 hypoglycemia linagliptin [From Tradjenta] Allergy Unknown Unverified 01/31/22 00:04 metformin Allergy itching Unverified 01/31/22 00:04 saxagliptin [From Onglyza] Allergy Unknown Unverified 01/31/22 00:04 Consultations 01/30/22 21:45 ED Decision to Admit Stat 01/31/22 08:00 Consult Cardiology Routine Ordered Studies 01/30/22 20:37 CT head/brain wo con Stat 01/31/22 09:00 CT head/brain wo con Urgent Hospital Course (1) Ventricular tachycardia: Plan 82-year-old gentleman was evaluated for ventricular tachycardia, troponin trends were flat though minimally elevated, no chest pain, EP evaluated, AICD interrogation with 4 minutes of ventricular tachycardia, the threshold for AICD has been reset. His carvedilol and Entresto dose has been increased which needs to be titrated as an outpatient hence patient will need to follow-up with his cardiology. Patient hemodynamically stable and is cleared for discharge per EP. Patient being discharged with following instruction at the point of discharge: Follow-up with your primary care physician within a week time. Your carvedilol and Entresto dose has been increased, you will need titration of these medications, maintain follow-up with your cardiology as an outpatient. Get your blood work CBC, magnesium level and CMP done in a week time. Take your medications as prescribed. Total Time Total Time Spent Total Time Spent (In Minutes): 40 Discharge Plan Discharge Items [facility] Disposition[facility] Reason For Visit: CARDIAC ASSESSMENT Discharge Diagnosis: Ventricular tachycardia Activity: Resume your previous activity Non-emergency contact: Primary Care Provider Call non-emergency contact if: you have any medication questions Follow-up/Referrals: Jonah CRESPO [Primary Care Provider] - Diet: Heart Healthy Addtl Attending Provider Instructions: Follow-up with your primary care physician within a week time. Your carvedilol and Entresto dose has been increased, you will need titration of these medications, maintain follow-up with your cardiology as an outpatient. Get your blood work CBC, magnesium level and CMP done in a week time. Take your medications as prescribed. Pending Studies at Discharge: No Stand-Alone Forms: [facility] Skilled Items Patient informed of condition?: Yes Discharge Level of Care: Other Communicable Disease: No Discharge Prognosis: Stable Lines: None Urinary Catheter: No Medications and DC Order Prescriptions: New Entresto 49-51 mg Tablet 1 tab PO BID Qty: 60 0RF carvedilol 6.25 mg Tablet 6.25 mg PO BID Qty: 60 0RF Continued Eliquis 2.5 mg Tablet 2.5 mg PO BID bimatoprost 0.03 % Drops 1 drp OPB DAILY atorvastatin 20 mg Tablet 20 mg PO DAILY multivitamin Tablet 1 tab PO DAILY levothyroxine 100 mcg Tablet 100 mcg PO QAM Discontinued carvedilol 3.125 mg Tablet 3.125 mg PO BID Rx Instructions: must administer with a meal/food Entresto 24-26 mg Tablet 1 tab PO BID Discharge Orders: Discharge Order (Routine); Ordered 01/31/22 Ordered By: Shine Hanley Admission Data Admit Date/Time: 01/30/22 23:59 Attending Provider: Shine Hanley Admit Provider: Nolan Dunbar Primary Care Provider: Jonah CRESPO Other Providers: Nolan Dunbar ; Marcello Davis
--- NOTE | 2022-01-31 17:09 | Electrocardiogram Report ---
Test Reason : Blood Pressure : / mmHG Vent. Rate : 070 BPM Atrial Rate : 070 BPM P-R Int : 166 ms QRS Dur : 164 ms QT Int : 458 ms P-R-T Axes : 082 -82 086 degrees QTc Int : 494 ms AV dual-paced rhythm Biventricular pacemaker detected Abnormal ECG When compared with ECG of 12-OCT-2021 12:04, Vent. rate has decreased BY 5 BPM Confirmed by Ted Desai ([id number]) on 01/31/2022 5:09:24 PM Referred By: Jonah CRESPO Confirmed By:Ted Desai
--- NOTE | 2022-01-31 17:14 | Electrocardiogram Report ---
Test Reason : Blood Pressure : / mmHG Vent. Rate : 070 BPM Atrial Rate : 070 BPM P-R Int : 166 ms QRS Dur : 174 ms QT Int : 490 ms P-R-T Axes : 064 -67 083 degrees QTc Int : 529 ms AV dual-paced rhythm with occasional ventricular-paced complexes Biventricular pacemaker detected Abnormal ECG When compared with ECG of 30-JAN-2022 20:36, (unconfirmed) No significant change was found Confirmed by Ted Desai ([id number]) on 01/31/2022 5:14:20 PM Referred By: Jonah [facility] Confirmed By:Ted Desai
[2022-01-31] MEDS ORDERED: VALSARTAN/SACUBITRIL 51/49 MG TAB PO SCH (21:00)
[2022-01-31] MEDS ORDERED: carvediloL 6.25 MG TAB PO SCH (21:00)
--- NOTE | 2022-02-02 10:29 | Coding Query ---
CODING QUERY To promote full compliance with coding requirements relating to patient care, provider participation is requested in all cases of brushing machine operator uncertainty. Please assist us with the question(s) below: Coding Question(s): The ER documents, "abnormal CT of the head" and the H&P documents, "Holding eliquis for possible tiny brain hemorrhage", and, "Brain hemorrhage: possibly a tiny acute hemorrhage on ct head. Currently patient has no symptoms.Will follow repeat ct head. Holding eliquis for now". There are no Progress Notes and the Discharge Summary does not document regarding the possible tiny acute brain hemorrhage. Please specify below, in your clinical opinion. ( ) Possible tiny acute brain hemorrhage was treated and/or monitored during this admission ( x ) Possible tiny acute brain hemorrhage was ruled-out ( ) Other: Please Specify Physician's Response(s): Thank you Trini Gao Principal Diagnosis: "that condition established after study, to be chiefly responsible for occasioning the admission of the patient to the hospital for care." Co-Existing Principal Diagnosis: "when two or more diagnoses equally meet the criteria for principal diagnosis as determined by the circumstances of admission, diagnostic work up, and/or therapy provided, and the Alphabetic Index, Tabular List, or another coding guideline does not provide sequencing direction, any one of the diagnoses may be sequenced first." "When the physician has documented what appears to be a current diagnosis in the body of the record, but has not included the diagnosis in the final diagnostic statement, the physician should be asked whether the diagnosis should be added." (Source [facility]oding [facility] 2 QTR90. p3-4) STANISLAV
== END 2022-01-31 18:19 | DRG 309 ==
LOC: ED 20:24 → INTOOBSV 23:59 → 1E 23:59 → 2E 01-31 10:53

== ENCOUNTER 2023-07-14 16:06 | Inpatient (IN) ==
--- NOTE | 2023-07-14 16:46 | XRay Report ---
XR chest 1V portable HISTORY: 83 years-old Male chest pain, palpitations acute chest pain with cardiac palpitations COMPARISON: Chest radiograph 02/01/2022 TECHNIQUE: AP view of the chest FINDINGS: Cardiac silhouette is upper limits of normal in size. Left subclavian pacer/AICD. No pneumothorax. Tr miguel pleural effusions with mild bibasilar opacities. Pulmonary vascular congestion. Bones of the ches t appear grossly intact. Surgical anchors in the right humeral head. IMPRESSION: 1. Cardiomegaly with pulmonary vascular congestion. 2. Trace pleural effusions with mild bibasilar atelectasis. ACT 112: Negative or not required by law. The above report was generated using voice recognition software. It may contain grammatical, syntax o r spelling errors. Electronically signed by: Pj Walsh M.D. 07/14/2023 4:45 PM
--- NOTE | 2023-07-14 17:04 | Emergency Department Note ---
Impression & Plan Ventricular tachycardia, NICM (nonischemic cardiomyopathy), Heart palpitations, ICD (implantable cardioverter-defibrillator) in place ED Provider Note Provider: Ascencion Edmond MD DATE OF SERVICE: 07/14/2023 CHIEF COMPLAINT: Chest discomfort, brief elevated heart rate HISTORY OF PRESENT ILLNESS: Patient is a 83-year-old gentleman history of nonischemic cardiomyopathy with AICD, CHF, CKD, type 2 diabetes, hypertension presenting for the present today with onset today of intermittent dizziness heart palpitations little bit of chest discomfort. He report normally he is very active and exercises. 6 days ago as he reported little bit of dizziness to one of the medical team his Coreg was decreased from 25 twice daily to 12 and half twice daily. Denies any real shortness of breath or cough or cold symptoms. Denies any abdominal symptoms. Little bit of trace edema he states this is his baseline. Denies increased welling. Patient denies trauma. Patient states that he is intermittently getting little pressure in his mid chest. Feels his heart rate is racing at sometimes. Questions is related to his changing Coreg dosing. Does follow with cardiology. Has had a normal oral intake. No focal numbness or weakness reported. PAST MEDICAL HISTORY: As noted above MEDICATIONS: Reviewed medication list with facility SOCIAL HISTORY[facility] PHYSICAL EXAM: GENERAL: alert and oriented in no acute distress on stretcher handcuffed guards at bedside Head: normocephalic and atraumatic EYES: No injection, discharge or icterus. NECK: Trachea midline. ENT: Mucous membranes pink and moist. LUNGS: Airway patent. No retractions. Breath sounds clear with good air entry bilaterally. HEART: Regular rate and rhythm. No chest wall tenderness with left upper chest AICD appreciated subcutaneously with intact healed skin. ABDOMEN: Soft and non-tender, without guarding or rebound. SKIN: Acyanotic, warm, dry, without rashes EXTREMITIES: Without swelling, tenderness or deformity NEUROLOGICAL: No focal deficits. No aphasia. No facial droop or slurred speech. Normal strength and tone in the extremities. Sensation to gross touch normal. EK bpm AV paced rhythm without PVC. Pacer ventricular conduction delay noted. No Sgarbossa criteria noted. QTc 470 CONTINUOUS CARDIAC MONITORING: was ordered and showed a heart rate of 70s bpm in AV paced rhythm with rare PVC and occasional episodes of V. tach that appear to be terminated with ATP. Patient's laboratory studies and imaging reviewed. Differential includes Premature contractions, electrolyte abnormality, cardiac dysrhythmia, thyroid dysfunction, pulmonary embolism, infection, gastrointestinal, as well as other pathologies. IMPRESSION/MEDICAL DECISION MAKING: Patient with cardiac history. AICD. Will interrogate. Question of is having episodes of possible tachycardia causing some chest pressure. Will complete troponin to look for troponin elevation. EKG here paced without obvious abnormality. Denies other infectious symptoms. Basic blood work and electrolytes to be sent. Will send TSH for completeness as well. Doubt this is infectious however. No other neurological symptoms. While on telemetry here had episode of ventricular tachycardia approximately 6 seconds terminated via the pacemakers ATP pacing. No shocks delivered. Discussed with the [employer] hospital insurance representative who reports 16 episodes of V. tach today with about 14 months left on the battery. Were terminated by the AICD with ATP pacing today. Rates up and about 180s. Patient was symptomatic during the episode here. Discussed with Dr. Jimenez of cardiology and will give a dose of IV metoprolol given his amiodarone allergy to help hopefully prevent further episodes. No severe electrolyte abnormalities. Chronic CKD. Troponin 21.7 not severely elevated. Negative COVID. No significant leukocytosis or severe anemia. Discussed with the patient and he is agreeable for the metoprolol as he reports reaction to amiodarone that he has had in the past. DIAGNOSIS: Ventricular tachycardia, nonischemic cardiomyopathy DISPOSITION: Hospitalist will evaluate Patient was agreeable with this plan. Critical Care I have personally spent 42 minutes of critical care time in the direct management of this patient. This includes bedside care, interpretation of diagnostic studies, and testing, discussion with consultants, patient, and family members, and other required patient management activities. These 42 minutes is in excess of all separately billable procedures. Past Med/Surg History Medical History Pacemaker at end of battery life ICD (implantable cardioverter-defibrillator) in place History of CHF (congestive heart failure) CKD (chronic kidney disease) Atrial fibrillation Prostate cancer Diabetes mellitus, type II HLD (hyperlipidemia) HTN (hypertension) Surgical History History of prostate surgery History of cardiac cath reported was in 2018 at [facility] in [place], [place] Family History Father Stroke Social History Smoking Status: Never smoker Hx Alcohol Use: No Hx Substance Use: No Preferred Language: Puerto Rican Communication Ability: Effective 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 Beliefs That Will Affect Care: None marital status: Single Current Living Situation: Other Current Living Situation Comment: ZAK DAUGHERTY Feels Safe at Home: Yes Assistive Devices: Glasses Allergies Allergies Allergy/AdvReac Type Severity Reaction Status Date / Time amiodarone Allergy Mild Unknown Verified 07/14/23 17:26 glimepiride Allergy reported Unverified 07/14/23 17:26 hypoglycemia linagliptin [From Tradjenta] Allergy Unknown Unverified 07/14/23 17:26 metformin Allergy itching Unverified 07/14/23 17:26 saxagliptin [From Onglyza] Allergy Unknown Unverified 07/14/23 17:26 Home Meds Home Medications Medication Instructions Recorded Confirmed levothyroxine 100 mcg tablet 100 mcg PO QAM 09/17/21 07/14/23 multivitamin 1 tab PO DAILY 09/17/21 07/14/23 dapagliflozin propanediol 10 mg 10 mg PO DAILY 07/03/22 07/14/23 tablet (Farxiga) spironolactone 25 mg tablet 25 mg PO DAILY 07/03/22 07/14/23 atorvastatin 10 mg tablet 10 mg PO HS 07/14/23 07/14/23 bimatoprost 0.03 % eye drops 1 drp OPB DAILY 07/14/23 07/14/23 calcium polycarbophil 625 mg 1,250 mg PO DAILY 07/14/23 07/14/23 tablet (Fiber-Lax) carvedilol 12.5 mg tablet 12.5 mg PO BID 07/14/23 07/14/23 sacubitril 97 mg-valsartan 103 mg 1 tab PO BID 07/14/23 07/14/23 tablet (Entresto) Results & Data (ED) Vital Signs Vital Signs - 24 hr 07/14/23 16:17 07/14/23 17:26 07/14/23 18:00 Pulse Rate 70 70 Pulse Rate [Apical] 70 Pulse Rhythm Regular Pulse Strength Normal Respiratory Rate 17 18 Respiratory Effort / Characteristics Non-Labored Non-Labored Spontaneous Respiratory Depth Normal Normal Respiratory Pattern Regular Regular Blood Pressure 124/75 Blood Pressure [Right Arm] 133/95 Blood Pressure Mean 91 Blood Pressure Mean [Right Arm] 107 Pulse Oximetry 98 97 Oxygen Delivery Method Room Air Sepsis Recent Fever Within 48 Hours No Sepsis New/Unexplained Change in Mental Status No Sepsis Action Taken by Nursing No Action Required 07/14/23 18:01 Pulse Rate 70 Pulse Rate [Apical] Pulse Rhythm Pulse Strength Respiratory Rate Respiratory Effort / Characteristics Respiratory Depth Respiratory Pattern Blood Pressure 133/93 Blood Pressure [Right Arm] Blood Pressure Mean Blood Pressure Mean [Right Arm] Pulse Oximetry Oxygen Delivery Method Sepsis Recent Fever Within 48 Hours Sepsis New/Unexplained Change in Mental Status Sepsis Action Taken by Nursing Laboratory Data 07/14/23 17:04 07/14/23 17:04 Lab Results 07/14/23 Range/Units 17:04 WBC 6.35 (4.8-10.8) K/ul RBC 4.28 L (4.70-6.10) M/uL Hgb 13.5 L (14.0-18.0) g/dl Hct 39.5 L (42.0-52.0) % MCV 92.3 (80.0-100.0) fL MCH 31.5 (25.0-34.0) pg MCHC 34.2 (32.0-36.0) g/dL RDW Std Deviation 43.8 (36.4-46.3) fL RDW Coeff of Gisele 13.0 (11.5-14.5) % Plt Count 148 (130-400) K/uL MPV 11.0 (9.4-12.4) fL Immature Gran % (Auto) 0.6 % Neut % (Auto) 64.6 % Lymph % (Auto) 17.2 % [place] % (Auto) 10.4 % Eos % (Auto) 6.6 % Baso % (Auto) 0.6 % Neut # (Auto) 4.10 (1.40-6.50) K/uL Lymph # (Auto) 1.09 L (1.20-3.40) K/uL [place] # (Auto) 0.66 H (0.11-0.59) K/uL Eos # (Auto) 0.42 (0.00-0.50) K/uL Baso # (Auto) 0.04 (0.00-0.20) K/uL Immature Gran # (Auto) 0.04 (0.01-0.20) K/uL PT 11.9 (9.0-12.0) Seconds INR 1.1 (0.9-1.1) Sodium 132 L (136-145) mmol/L Potassium 4.8 (3.5-5.1) mmol/L Chloride 101 (98-107) mmol/L Carbon Dioxide 27 (21-32) mmol/L Anion Gap 4 (3-11) BUN 23 (6-23) mg/dl Creatinine 1.42 H (0.6-1.4) mg/dl Est Cr Clr Drug Dosing 42.0 ml/min Est GFR ( Amer) 52.6 ml/min Est GFR (Non-Af Amer) 45.4 ml/min BUN/Creatinine Ratio 16.2 (10-20) Glucose 123 H (70-99(Fasting)) mg/dl Calcium 9.8 (8.6-10.3) mg/dl Magnesium 2.2 (1.7-2.4) mg/dl Total Bilirubin 0.7 (0.2-1.0) mg/dl AST 22 (13-39) U/L ALT 17 (7-52) U/L Alkaline Phosphatase 70 (34-104) U/L Troponin I High Sens 21.7 H (0-20) pg/ml Total Protein 6.5 (6.0-8.3) gm/dl Albumin 4.1 (3.4-5.0) gm/dl Globulin 2.4 L (2.5-4.0) gm/dl Albumin/Globulin Ratio 1.7 (0.9-2) TSH 1.230 (0.300-4.500) uIu/ml Administered Medications Atorvastatin Calcium (Atorvastatin 10 Mg Tab) 10 mg PO HS [facility] Stop: 08/13/23 20:59 Last Admin: 07/14/23 22:02 Dose: 10 mg Documented By: FRANTZ Carvedilol (Carvedilol 25 Mg Tab) 25 mg PO BIDM TAYLOR Stop: 08/13/23 20:59 Last Admin: 07/14/23 22:02 Dose: 25 mg Documented By: FRANTZ Insulin Aspart (Insulin Aspart Per Unit Charge) 0 units SC ACHS TAYLOR Stop: 08/13/23 20:59 Last Admin: 07/14/23 22:17 Dose: Not Given Documented By: FRANTZ Co-signed By: OMER Insulin Glargine (Lantus Per Unit Charge) 10 units SQ BID TAYLOR Stop: 08/13/23 20:59 Last Admin: 07/14/23 22:17 Dose: Not Given Documented By: FRANTZ Sacubitril/Valsartan (Valsartan/Sacubitril 103/97mg Tab) 1 tab PO BID TAYLOR Stop: 08/13/23 20:59 Last Admin: 07/14/23 22:02 Dose: 1 tab Documented By: FRANTZ Discontinued Medications Metoprolol Tartrate (Metoprolol Tartrate 1 Mg/Ml Vial) 5 mg IV NOW [facility] Stop: 07/14/23 17:44 Last Admin: 07/14/23 18:01 Dose: 5 mg Documented By: OAC Imaging Data Radiologist's Impression: Chest X-Ray 07/14/23 16:27 XR chest 1V portable HISTORY: 83 years-old Male chest pain, palpitations acute chest pain with cardiac palpitations COMPARISON: Chest radiograph 02/01/2022 TECHNIQUE: AP view of the chest FINDINGS: Cardiac silhouette is upper limits of normal in size. Left subclavian pacer/AICD. No pneumothorax. Trace pleural effusions with mild bibasilar opacities. Pulmonary vascular congestion. Bones of the chest appear grossly intact. Surgical anchors in the right humeral head. IMPRESSION: 1. Cardiomegaly with pulmonary vascular congestion. 2. Trace pleural effusions with mild bibasilar atelectasis. ACT 112: Negative or not required by law. The above report was generated using voice recognition software. It may contain grammatical, syntax or spelling errors. Electronically signed by: Pj Walsh M.D. 07/14/2023 4:45 PM Discharge Plan Visit Data Chief Complaint: Chest Pain ED Provider: Ascencion Edmond Discharge Problem: Ventricular tachycardia, NICM (nonischemic cardiomyopathy), Heart palpitations, ICD (implantable cardioverter-defibrillator) in place Patient Disposition: Being Evaluated by Hospitalist Discharge Instructions Interventions: ED Discharge Assessment Last Done: 07/14/23 20:19
[2023-07-14 17:16] LABS: Basophils # (auto) 0.04 K/uL (0.00-0.20); Basophils % (auto) 0.6 %; Eosinophils # (auto) 0.42 K/uL (0.00-0.50); Eosinophils % (auto) 6.6 %; Hematocrit (blood only) 39.5 % (42.0-52.0); Hemoglobin 13.5 g/dl (14.0-18.0); Immature Granulocytes # (auto) 0.04 K/uL (0.01-0.20); Immature Granulocytes % (auto) 0.6 %; Lymphocytes # (auto) 1.09 K/uL (1.20-3.40); Lymphocytes % (auto) 17.2 %; Mean Corpuscular Hemoglobin 31.5 pg (25.0-34.0); Mean Corpuscular Hgb Conc 34.2 g/dL (32.0-36.0); Mean Corpuscular Volume 92.3 fL (80.0-100.0); Monocytes # (auto) 0.66 K/uL (0.11-0.59); Monocytes % (auto) 10.4 %; Neutrophils % (auto) 64.6 %; Platelet Count 148 K/uL (130-400); RDW Standard Deviation 43.8 fL (36.4-46.3); Red Blood Count 4.28 M/uL (4.70-6.10); White Blood Count 6.35 K/ul (4.8-10.8)
[2023-07-14 17:34] LABS: Albumin Globulin Ratio 1.7 (0.9-2); Albumin Level 4.1 gm/dl (3.4-5.0); BUN Creatinine Ratio 16.2 (10-20); Bilirubin,Total 0.7 mg/dl (0.2-1.0); Calcium 9.8 mg/dl (8.6-10.3); Est GFR (African American) 52.6 ml/min; Est GFR (Non-African American) 45.4 ml/min; Globulin 2.4 gm/dl (2.5-4.0); Magnesium 2.2 mg/dl (1.7-2.4); Potassium 4.8 mmol/L (3.5-5.1); Total Protein 6.5 gm/dl (6.0-8.3)
[2023-07-14 17:40] LABS: Troponin I High Sensitivity 21.7 pg/ml (0-20)
[2023-07-14 17:43] LABS: INR 1.1 (0.9-1.1); Prothrombin Time 11.9 Seconds (9.0-12.0)
[2023-07-14 17:50] LABS: Thyroid Stimulating Hormone 1.23 uIu/ml (0.300-4.500)
[2023-07-14] MEDS: METOPROLOL TARTRATE 1 MG/ML VIAL IV STA ×2 (17:56→18:01)
[2023-07-14] MEDS ORDERED: ONDANSETRON INJ 2 MG/ML 2 ML VIAL IV PRN (18:24)
[2023-07-14] MEDS ORDERED: CARBOHYDRATES FOR HYPOGLYCEMIA PO PRN (18:24)
[2023-07-14] MEDS ORDERED: POLYETHYLENE (MIRALAX) 17 GM PACK PO PRN (18:24)
[2023-07-14] MEDS ORDERED: PHARMACY GLYCEMIC MGMT CONSULT PRN (18:24)
[2023-07-14] MEDS ORDERED: GLUCAGON FOR INJ 1 MG VIAL SQ PRN (18:24)
[2023-07-14] MEDS ORDERED: ALUMINUM/MAGNESIUM SUSP 30 ML UDC PO PRN (18:24)
[2023-07-14] MEDS ORDERED: ACETAMINOPHEN 325 MG TAB PO PRN (18:24)
[2023-07-14] MEDS ORDERED: GLUCOSE 10 TAB/TUBE PO PRN (18:24)
[2023-07-14] MEDS ORDERED: GLUCOSE 40% GEL 15 GM TUBE PO PRN (18:24)
[2023-07-14] MEDS ORDERED: MAGNESIUM HYDROXIDE SUSP 30 ML UDC PO PRN (18:24)
[2023-07-14] MEDS ORDERED: DEXTROSE 50% 50 ML SYRINGE IV PRN (18:24)
--- NOTE | 2023-07-14 18:30 | History & Physical Report ---
Date of Service July 14, 2023 Assessment & Plan (1) Pacemaker at end of battery life: (2) Syncope, vasovagal: (3) Ventricular tachycardia: (4) History of CHF (congestive heart failure): (5) ICD (implantable cardioverter-defibrillator) in place: (6) Diabetes mellitus, type II: (7) HTN (hypertension): (8) HLD (hyperlipidemia): Plan Mr. Nixon is an 83 year old inmate that presents to the ED with chest discomfort and palpitations that has been occurring over the past few days. 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 Recently cut his Coreg from 25mg to 12.5mg SIX days ago. Upon arrival in the ED he experienced a 6 beat run of symptomatic VT and reported feeling chest pressure and feeling 'weird'. [employer] was contacted by the ED and they said that he had 16 pacer terminated events today[address] Dr. Jimenez from [facility] Cards discussed with ED provider as well. Last ECHO 2021: EF 35-40% with mild TR and moderate MR. 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 In the ED, CXR with trace pleural effusions. No leukocytosis, TSH normal, no otherwise electrolyte abnormalities. Troponin 21.7 which appears to be chronically mildly elevated but will trend to rule out any ACS. Suspect this is ischemic demand. Suspect patient experiencing his symptoms related to medication changes, complex heart failure and pacemaker nearing its end of life. Will place pt back on original Coreg dose, interrogate pacer, have anti-HTN available PRN, obtain recent ECHO, check Mg+, Phos, and trend Troponin with cardiology evaluation. 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 Takes Entresto and Aldactone ;continue Cardiology [facility] consultation placed HTN: Chronic Recently was experiencing dizziness; Coreg dose decreased from 25 mg po BID to 12.5 mg PO BID on 07/08 Increase Coreg back to original dosing Metoprolol 5 mg IV Q6 PRN [facility] Cards Consult DM2: chronic Takes dapagliflozin; hold while inpt Place on ACHS SSI Glycemic pharmacy consult diabetic diet HLD chronic takes atorvastatin;continue lipid panel in AM Disposition: PCP: ZAK Daugherty COde Status: Full code VTE Prophylaxis: lovenox SQ I spent a total of 87 minutes coordinating, documenting, and providing care for this patient excluding time spent in the performance of separately billed services. All of the aforementioned completed while collaborating with the assigned attending physician for a full treatment plan. Please see their addendum for further details. History of Present Illness Chief Complaint: chest pain/palpitations Primary Care Provider: ZAK Daugherty Mr. Nixon is an 83 year old inmate that presents to the ED with chest discomfort and palpitations that has been occurring over the past few days. 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 Recently cut his Coreg from 25mg to 12.5mg SIX days ago. Upon arrival in the ED he experienced a 6 beat run of symptomatic VT and reported feeling chest pressure and feeling 'weird'. [employer] was contacted by the ED and they said that he had 16 pacer terminated events today. Dr. Jimenez from [facility] Cards discussed with ED provider as well. Last ECHO 2021: EF 35-40% with mild TR and moderate MR. Additional past medical history includes HFrEF, HLD, hypothyroidism, diabetes mellitus type 2. In the ED, CXR with trace pleural effusions. No leukocytosis, TSH normal, no otherwise electrolyte abnormalities. Troponin 21.7 which appears to be chronically mildly elevated but will trend to rule out any ACS. Suspect this is ischemic demand. Suspect patient experiencing his symptoms related to medication changes, complex heart failure and pacemaker nearing its end of life. Will place pt back on original Coreg dose, interrogate pacer, have anti-HTN available PRN, obtain recent ECHO, check Mg+, Phos, and trend Troponin with cardiology evaluation. Patient will be admitted for further evaluation and management. Please see A/P for further details. Allergies Allergy/AdvReac Type Severity Reaction Status Date / Time amiodarone Allergy Mild Unknown Verified 07/14/23 17:26 glimepiride Allergy reported Unverified 07/14/23 17:26 hypoglycemia linagliptin [From Tradjenta] Allergy Unknown Unverified 07/14/23 17:26 metformin Allergy itching Unverified 07/14/23 17:26 saxagliptin [From Onglyza] Allergy Unknown Unverified 07/14/23 17:26 Home Medications Medication Instructions Recorded Confirmed Type levothyroxine 100 mcg tablet 100 mcg PO QAM 09/17/21 07/14/23 History multivitamin 1 tab PO DAILY 09/17/21 07/14/23 History dapagliflozin propanediol 10 mg 10 mg PO DAILY 07/03/22 07/14/23 History tablet (Farxiga) spironolactone 25 mg tablet 25 mg PO DAILY 07/03/22 07/14/23 History atorvastatin 10 mg tablet 10 mg PO HS 07/14/23 07/14/23 History bimatoprost 0.03 % eye drops 1 drp OPB DAILY 07/14/23 07/14/23 History calcium polycarbophil 625 mg 1,250 mg PO DAILY 07/14/23 07/14/23 History tablet (Fiber-Lax) carvedilol 12.5 mg tablet 12.5 mg PO BID 07/14/23 07/14/23 History sacubitril 97 mg-valsartan 103 mg 1 tab PO BID 07/14/23 07/14/23 History tablet (Entresto) Past Med/Surg History Medical History Pacemaker at end of battery life ICD (implantable cardioverter-defibrillator) in place History of CHF (congestive heart failure) CKD (chronic kidney disease) Atrial fibrillation Prostate cancer Diabetes mellitus, type II HLD (hyperlipidemia) HTN (hypertension) Surgical History History of prostate surgery History of cardiac cath reported was in 2018 at [facility] in [place], [place] Family History Father Stroke Social History (Reviewed 07/14/23 @ 19:03 by RAFFY Bolden Smoking Status: Never smoker Hx Alcohol Use: No Hx Substance Use: No Preferred Language: Uzbek Communication Ability: Effective 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 Lopez's addendum for physical examination Results & Data Results & Data Vital Signs (Past 12 Hours) Vital Signs Pulse Pulse Resp BP BP Pulse Ox O2 Del Method 07/14/23 18:01 70 133/93 07/14/23 18:00 70 18 133/95 97 07/14/23 17:26 70 07/14/23 16:17 70 17 124/75 98 Room Air Laboratory Results Short CBC 07/14/23 Range/Units 17:04 WBC 6.35 (4.8-10.8) K/ul Hgb 13.5 L (14.0-18.0) g/dl Hct 39.5 L (42.0-52.0) % Plt Count 148 (130-400) K/uL BMP 07/14/23 17:04 Sodium 132 L Potassium 4.8 Chloride 101 Carbon Dioxide 27 BUN 23 Creatinine 1.42 H Glucose 123 H Calcium 9.8 Liver Function 07/14/23 Range/Units 17:04 Total Bilirubin 0.7 (0.2-1.0) mg/dl AST 22 (13-39) U/L ALT 17 (7-52) U/L Alkaline Phosphatase 70 (34-104) U/L Albumin 4.1 (3.4-5.0) gm/dl Diagnostic Findings Chest X-Ray 07/14/23 16:27 XR chest 1V portable HISTORY: 83 years-old Male chest pain, palpitations acute chest pain with cardiac palpitations COMPARISON: Chest radiograph 02/01/2022 TECHNIQUE: AP view of the chest FINDINGS: Cardiac silhouette is upper limits of normal in size. Left subclavian pacer/AICD . No pneumothorax. Trace pleural effusions with mild bibasilar opacities. Pulmonary vascular congestion. Bones of the chest appear grossly intact. Surgical anchors in the right humeral head. IMPRESSION: 1. Cardiomegaly with pulmonary vascular congestion. 2. Trace pleural effusions with mild bibasilar atelectasis. ACT 112: Negative or not required by law. The above report was generated using voice recognition software. It may contain grammatical, syntax or spelling errors. Electronically signed by: Pj Walsh M.D. 07/14/2023 4:45 PM Code Status & VTE Plan Code Status Full Code in the event of cardiac or respiratory arrest VTE Prophylaxis Plan VTE Prophylaxis will be ordered: Yes Supervising Physician Co-Signing Physician Notes Patient is an 83-year-old male with history of nonischemic cardiomyopathy, ventricular tachycardia, atrial fibrillation S/P ICD, hyperlipidemia, CKD and other medical problems ongoing dizziness, chest discomfort associated with palpitations for the last few days. Patient's Coreg dose was recently reduced due to dizziness by primary care. In ED patient had 6 beats of symptomatic bradycardia. Pacemaker interrogation was done. Patient denies any chest pain, dyspnea currently. He also denies any nausea, vomiting, abdominal pain, recent infections. Please review HPI for complete details of presentation. I personally reviewed blood work, imaging studies. chest x-ray suggestive of cardiomegaly with some pulmonary vascular congestion, trace pleural effusion and atelectasis. Blood work fairly within normal limits except for sodium 132, creatinine 1.42, glucose 123 and mild elevation of troponin 21.7. TSH within normal limits. [employer] currently pending. Physical Exam: Vitals signs as noted above General Appearance:Moderately built and nourished, no apparent distress Head: normocephalic, Atraumatic Eyes: normal inspection, EOMI Neck: supple, Trachea midline Respiratory/Chest: Normal breath sounds, CTA, No accessory muscle use Cardiovascular: S1, S2, No murmur, +ICD, paced rhythm Abdomen/GI:Soft, Non tender, Bowel sounds present Extremities/Musculoskeletal:normal inspection, no edema Neurologic/Psych:AAOX3, grossly no focal neurological deficits Skin: normal color, warm Symptomatic ventricular tachycardia Pacer at end of battery life Pulmonary congestion secondary to above Mild troponin elevation likely demand ischemia secondary to tachycardia No significant volume overload clinically Will increase carvedilol back to 25 mg twice a day IV Lopressor as needed Continue other home medications Consulted cardiology N.p.o. after midnight for possible ICD exchange Monitor and replace electrolytes as needed I personally reviewed the record. Patient is interviewed and examined at bedside. Patient's care is coordinated with Nafisa WYATT. Please refer to the documentation above for details of patient's presentation and for discussion of other issues.
[2023-07-14] MEDS ORDERED: METOPROLOL TARTRATE 1 MG/ML VIAL IV PRN (18:46)
[2023-07-14 20:16] LABS: Adenovirus PCR Not Detected (NotDetected); Bordetella parapertussis PCR Not Detected (NotDetected); Bordetella pertussis PCR Not Detected (NotDetected); Chlamydia pneumoniae PCR Not Detected (NotDetected); Coronavirus 229E PCR Not Detected (NotDetected); Coronavirus CoV-2 (COVID19)PCR Not Detected (NotDetected); Coronavirus HKU1 PCR Not Detected (NotDetected); Coronavirus NL63 PCR Not Detected (NotDetected); Coronavirus OC43PCR Not Detected (NotDetected); Human Metapneumovirus PCR Not Detected (NotDetected); Influenza A PCR Not Detected (NotDetected); Influenza B PCR Not Detected (NotDetected); Mycoplasma pneumoniae PCR Not Detected (NotDetected); Parainfluenza Virus 1 PCR Not Detected (NotDetected); Parainfluenza Virus 2 PCR Not Detected (NotDetected); Parainfluenza Virus 3 PCR Not Detected (NotDetected); Parainfluenza Virus 4 PCR Not Detected (NotDetected); Respiratory Syncytial VirusPCR Not Detected (NotDetected); Rhinovirus/Enterovirus PCR Not Detected (NotDetected)
[2023-07-14] MEDS: INSULIN ASPART PER UNIT CHARGE SC SCH ×2 (22:01→22:17)
[2023-07-14] MEDS: VALSARTAN/SACUBITRIL 103/97MG TAB PO SCH (22:02)
[2023-07-14] MEDS: ATORVASTATIN 10 MG TAB PO SCH (22:02)
[2023-07-14] MEDS: carvediloL 25 MG TAB PO SCH (22:02)
[2023-07-14] MEDS: LANTUS PER UNIT CHARGE SQ SCH ×2 (22:05→22:17)
[2023-07-15 04:15] LABS: Hematocrit (blood only) 39.6 % (42.0-52.0); Hemoglobin 13.2 g/dl (14.0-18.0); Mean Corpuscular Hemoglobin 30.8 pg (25.0-34.0); Mean Corpuscular Hgb Conc 33.3 g/dL (32.0-36.0); Mean Corpuscular Volume 92.3 fL (80.0-100.0); Mean Platelet Volume 11.1 fL (9.4-12.4); Platelet Count 153 K/uL (130-400); RDW Standard Deviation 43.8 fL (36.4-46.3); Red Blood Count 4.29 M/uL (4.70-6.10); White Blood Count 5.87 K/ul (4.8-10.8)
[2023-07-15 04:31] LABS: Albumin Globulin Ratio 1.6 (0.9-2); Albumin Level 3.7 gm/dl (3.4-5.0); BUN Creatinine Ratio 17.7 (10-20); Bilirubin,Total 0.9 mg/dl (0.2-1.0); Calcium 9.4 mg/dl (8.6-10.3); Chol HDL Ratio 2.1 (0-5); Creatinine Clr Calc Pharmacy 48.1 ml/min; Est GFR (African American) 61.9 ml/min; Est GFR (Non-African American) 53.4 ml/min; Globulin 2.3 gm/dl (2.5-4.0); Magnesium 2.1 mg/dl (1.7-2.4); Phosphorus 3.2 mg/dl (2.5-4.9); Potassium 4.2 mmol/L (3.5-5.1)
[2023-07-15] MEDS: LEVOTHYROXINE SODIUM 100 MCG TABLET PO SCH (07:18)
[2023-07-15 07:23] LABS: Estimated Average Glucose 143 mg/dl; Hemoglobin A1C 6.6 % (4.5-5.6)
--- NOTE | 2023-07-15 09:05 | Electrocardiogram Report ---
Test Reason : Blood Pressure : / mmHG Vent. Rate : 070 BPM Atrial Rate : 070 BPM P-R Int : 168 ms QRS Dur : 156 ms QT Int : 436 ms P-R-T Axes : -34 270 086 degrees QTc Int : 470 ms AV dual-paced rhythm Biventricular pacemaker detected Abnormal ECG When compared with ECG of 01-FEB-2022 16:36, Premature ventricular complexes are no longer Present Confirmed by Godwin Jimenez ([id number]) on 07/15/2023 9:05:07 AM Referred By: oJnah CRESPO Confirmed By:Godwin Jimenez
--- NOTE | 2023-07-15 09:15 | Pharmacy Report ---
Pharmacy Glycemic Short Note 2 - Date of Service July 15, 2023 - Glycemic Short BSG Results (Last 24 hours): 07/14/23 07/14/23 07/15/23 17:04 21:27 03:58 Glucose 123 H 96 POC Glucose 106 H OUTPATIENT ANTIDIABETIC REGIMEN: * dapagliflozin 10mg po daily * A1c 6.6% 07/15/23 ASSESSMENT: * 83 year old male with ventricular tachycardia, pacer at end of battery life. * Type 2 Diabetic, patient received 10 units Lantus last night, fasting BSG 96mg/dl. * Continue basal and loosen NovoLog parameters at this time. PLAN FOR INPATIENT GLYCEMIC CONTROL: * Hold outpatient oral diabetes medications * Basal insulin * Lantus 10 units SQ HS * Bolus insulin * NovoLog per scale ACHS or Q6hrs while NPO * Goal Range: Low 110 mg/dL - High 140 mg/dL * Correction Factor: 35 mg/dL/unit * Nutritional / Prandial insulin per carb ratio of 1 unit per 15 grams CHO consumed
[2023-07-15] MEDS: carvediloL 25 MG TAB PO SCH (09:22)
[2023-07-15] MEDS: INSULIN ASPART PER UNIT CHARGE SC SCH ×4 (09:47→20:29)
[2023-07-15] MEDS: VALSARTAN/SACUBITRIL 103/97MG TAB PO SCH ×2 (09:48→20:47)
[2023-07-15] MEDS: SPIRONOLACTONE 25 MG TAB PO SCH (09:48)
[2023-07-15] MEDS: BIMATOPROST 0.01% OP SOLN 2.5 ML BTL OP SCH (09:48)
[2023-07-15] MEDS: ENOXAPARIN INJ 40 MG/0.4 ML SYR SQ SCH (09:48)
--- NOTE | 2023-07-15 09:50 | XCELERA ---
[id number]
--- NOTE | 2023-07-15 11:49 | Cardiology Consultation ---
Date of Consultation July 15, 2023 Assessment & Plan (1) Ventricular tachycardia: Multiple episodes of ventricular tachycardia occurred after reduction in carvedilol dose last week, after IV beta-kelsie last evening no recurrence overnight. He apparently had a reaction to amiodarone in the past, therefore will utilize beta-blockers for rhythm management. Would continue carvedilol at reduced dose (12.5 mg twice daily), since this seemed to improve his exertional lightheadedness. Since he responded well to IV metoprolol last evening, would add metoprolol to his daily regimen, could use metoprolol succinate 25 mg daily initially and titrate as needed (no concerns for bradycardia given presence of pacemaker/ICD). Would recommend that he receive an oral dose of metoprolol before discharge. (2) ICD (implantable cardioverter-defibrillator) in place: There is mention of pacemaker approaching elective replacement time. I did not locate the printout, but an interrogation by our office January 2023 suggested 18 months until replacement time. Would ensure patient has follow-up with Dr. Malave in the near future to evaluate for pacemaker change out. (3) NICM (nonischemic cardiomyopathy): Echocardiogram shows mild improvement in left ventricular systolic function over the past year. Continue current guideline directed management with carvedilol, Entresto, and spironolactone. With history of diabetes, he could be a candidate for an SGLT2 inhibitor as well. (4) Mitral regurgitation: Stable moderate mitral regurgitation, unchanged over the past year. History of Present Illness Reason for Consultation: palpitations/pacer events; VT. Requesting Physician: Rory Lopez MD Attending Physician: Rory Lopez MD History of Present Illness 84-year-old man with history of nonischemic cardiomyopathy (current EF 40%), status post ICD, moderate mitral regurgitation, who was admitted 07/14/2023 after experiencing tachypalpitations and demonstrating runs of ventricular tachycardia on telemetry/ICD review. At recent baseline, he is very physically active, walking 3 miles most days. He has been noting some lightheadedness, particularly near the end of his walk, his carvedilol was reduced from 25 mg twice daily to 12.5 mg twice daily about a week ago. He felt significantly less lightheaded, but subsequently developed the tachypalpitations/dysrhythmia. He denies chest pain at any time and notes no syncope, prior to reducing the carvedilol he would note occasional presyncope at the end of his exercise regimen. Telemetry overnight showed a 25 beat run of ventricular tachycardia around 5 PM last evening, no subsequent dysrhythmias since. He did receive IV metoprolol last evening. He had no somatic complaints at the time of my evaluation this morning. Allergies Allergy/AdvReac Type Severity Reaction Status Date / Time amiodarone Allergy Mild Unknown Verified 07/14/23 17:26 glimepiride Allergy reported Unverified 07/14/23 17:26 hypoglycemia linagliptin [From Tradjenta] Allergy Unknown Unverified 07/14/23 17:26 metformin Allergy itching Unverified 07/14/23 17:26 saxagliptin [From Onglyza] Allergy Unknown Unverified 07/14/23 17:26 Home Medications Medication Instructions Recorded Confirmed Type levothyroxine 100 mcg tablet 100 mcg PO QAM 09/17/21 07/14/23 History multivitamin 1 tab PO DAILY 09/17/21 07/14/23 History dapagliflozin propanediol 10 mg 10 mg PO DAILY 07/03/22 07/14/23 History tablet (Farxiga) spironolactone 25 mg tablet 25 mg PO DAILY 07/03/22 07/14/23 History atorvastatin 10 mg tablet 10 mg PO HS 07/14/23 07/14/23 History bimatoprost 0.03 % eye drops 1 drp OPB DAILY 07/14/23 07/14/23 History calcium polycarbophil 625 mg 1,250 mg PO DAILY 07/14/23 07/14/23 History tablet (Fiber-Lax) carvedilol 12.5 mg tablet 12.5 mg PO BID 07/14/23 07/14/23 History sacubitril 97 mg-valsartan 103 mg 1 tab PO BID 07/14/23 07/14/23 History tablet (Entresto) Patient History Medical History Pacemaker at end of battery life ICD (implantable cardioverter-defibrillator) in place History of CHF (congestive heart failure) CKD (chronic kidney disease) Atrial fibrillation Prostate cancer Diabetes mellitus, type II HLD (hyperlipidemia) HTN (hypertension) Surgical History History of prostate surgery History of cardiac cath reported was in 2018 at [facility] in [place], [place] Family History Father Stroke Social History Smoking Status: Never smoker Hx Alcohol Use: No Hx Substance Use: No Preferred Language: Telugu Communication Ability: Effective 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 BP normotensive. Pulse 60 bpm and regular. Skin: no ecchymoses or generalized lesions. HEENT: unremarkable. Neck: JVP at the clavicle at 90 degrees, no carotid bruits. Lungs: clear. Cardiac: regular rhythm, normal S1-2, 2/6 apical holosystolic murmur rating to the axilla. Abdomen: benign. Extremities: no edema, pulses intact. Neurologic: normal affect and conversation, nonfocal. Results & Data Laboratory Results Sodium 135, potassium 4.2, magnesium 2.1. BUN 22, creatinine 1.24. Troponin values 21.7 and 26.1. Diagnostic Findings ECG on admission showed AV dual paced rhythm with normal QTc. Compared with 02/01/2022 ECG, PVCs no longer present. Chest x-ray on admission read as "cardiomegaly with mild pulmonary vascular congestion and trace pleural effusions), to my eye it is fairly unremarkable. Echocardiogram showed EF 40 to 45% with inferior lateral wall hypokinesis, mild AI, moderate MR/TR and mild pulmonary hypertension. Compared with 2021 study, mild improvement in LV systolic function, otherwise no significant change. PG Care Time/CCT Total # of Minutes Spent Total Time Spent with Patient: Total time spent is greater than 50% in coordination of care (as documented) at patient's floor/unit and/or counseling patient: Coding Level of Care Code 86550 IN/OBS CONSULT LVL 4,60M Diagnoses Ventricular tachycardia I47.20 ICD (implantable cardioverter-defibrillator) in place Z95.810 NICM (nonischemic cardiomyopathy) I42.8 Mitral regurgitation I34.0
[2023-07-15] MEDS ORDERED: METOPROLOL SUCC 25MG EXT REL TAB PO SCH (13:30)
[2023-07-15] MEDS ORDERED: METOPROLOL TARTRATE 1 MG/ML VIAL IV ONE (15:18)
[2023-07-15] MEDS ORDERED: MAGNESIUM SULFATE / D5W 1 GM/100 ML BAG IV ONE ×2 (15:48→21:22)
[2023-07-15] MEDS ORDERED: LORazepam 0.5 MG in SYRINGE 0.25 ML IV ONE (15:49)
[2023-07-15] MEDS ORDERED: METOPROLOL TARTRATE 1 MG/ML VIAL IV STA ×3 (15:52→20:45)
[2023-07-15] MEDS ORDERED: POTASSIUM CHLORIDE CRTAB 20 MEQ TABCR PO ONE (15:54)
[2023-07-15] MEDS ORDERED: LORazepam 1 MG/1 ML SYR ED Inj Use ONE (16:00)
[2023-07-15] MEDS ORDERED: LABETALOL HCL IV 5 MG/ML 20ML IV PRN (16:27)
--- NOTE | 2023-07-15 16:51 | Critical Care Consultation ---
Date of Consultation July 15, 2023 Assessment & Plan (1) Ventricular tachycardia: (2) NICM (nonischemic cardiomyopathy): (3) Elevated troponin: (4) History of CHF (congestive heart failure): (5) ICD (implantable cardioverter-defibrillator) in place: (6) CKD (chronic kidney disease): (7) Atrial fibrillation: (8) Heart palpitations: Plan Reason Critically Ill: 83-year-old male past medical history of V. tach s/p AICD, diabetes, hypothyroidism, hypertension, dyslipidemia, HFrEF was admitted because of recurrent V. tach with AICD firing. Neuro - [facility] ICU: Negative Cardiac - -- Ventricular storm Keep potassium greater than 4, magnesium greater than 2, phosphorus greater than 3 Continue with beta-blockers Consider amiodarone versus lidocaine drip if need be Cardiology on board TSH 1.23 -- HFrEF Not in exacerbation 2D echo 01/2022: EF 35-40%, mild concentric LVH, moderate MR --Hypertension On Coreg 12.5 mg twice daily, used to be on 25 mg twice daily before Respiratory - -- No acute issues right now Respiratory bio fire negative for everything Chest x-ray 07/14/2023 personally reviewed: Portable film, increased cardiac silhouette, increased right hilar marking, bilateral costophrenic and cardiophrenic angles are clean, AICD in place GI - -- Cardiac diet RENAL/LYTES - -- History of CKD Monitor BUNs/creatinine - -- History of prostate cancer ENDO - -- Diabetes type 2 Continue with ICU hypoglycemia protocol --Hypothyroidism Continue with levothyroxine HEME - -- Normocytic anemia Monitor H&H ID - -- No acute issues --Prophylaxis VTE: Lovenox GI: None Lines: Peripheral Diet: Cardiac Plan: Strict in and out Keep potassium greater than 4, magnesium greater than 2, phosphorus greater than 3. Continue with metoprolol p.o. every 6 hours with as needed labetalol. Given the patient has paced rhythm it is unlikely that his heart rate is going to go below 70. If the patient still continues to have AICD firing then lidocaine versus amiodarone drip could be thought of Cardiology is on board. Please note the above document was generated using voice recognition software. It may contain grammatical, syntax or spelling errors.Any formal questions or concerns about the content, text or information contained within the body of this dictation should be directly addressed to the provider for clarification. History of Present Illness Attending Physician: Rory Lopez MD History of Present Illness 83-year-old male present to the hospital with complaints of chest discomfort any ICD firing Past medical history: Diabetes, hypertension, dyslipidemia, history of V. tach s/p AICD, prostate cancer s/p TURP ICU was consulted because patient was having recurrent V. tach and shocks from AICD At the time of examination patient was resting comfortably on the bed Systolic blood pressure was in the 130s, heart rate was paced at 70. Respiratory rate in the low teens. Patient did complain of shortness of breath and dizziness when he was having chest discomfort which was followed by cardiac shock from the AICD He was given metoprolol pushes in the ED couple of times which did help but he went back into multiple shocks. He has been shocked over approximately 5 times Patient denies any nausea or vomiting right now No fever or chills No dysuria, no diarrhea Social history: Lifetime non-smoker. 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 No history of lung cancer in the family Allergies Allergy/AdvReac Type Severity Reaction Status Date / Time amiodarone Allergy Mild Unknown Verified 07/14/23 17:26 glimepiride Allergy reported Unverified 07/14/23 17:26 hypoglycemia linagliptin [From Tradjenta] Allergy Unknown Unverified 07/14/23 17:26 metformin Allergy itching Unverified 07/14/23 17:26 saxagliptin [From Onglyza] Allergy Unknown Unverified 07/14/23 17:26 Home Medications Medication Instructions Recorded Confirmed Type levothyroxine 100 mcg tablet 100 mcg PO QAM 09/17/21 07/14/23 History multivitamin 1 tab PO DAILY 09/17/21 07/14/23 History dapagliflozin propanediol 10 mg 10 mg PO DAILY 07/03/22 07/14/23 History tablet (Farxiga) spironolactone 25 mg tablet 25 mg PO DAILY 07/03/22 07/14/23 History atorvastatin 10 mg tablet 10 mg PO HS 07/14/23 07/14/23 History bimatoprost 0.03 % eye drops 1 drp OPB DAILY 07/14/23 07/14/23 History calcium polycarbophil 625 mg 1,250 mg PO DAILY 07/14/23 07/14/23 History tablet (Fiber-Lax) carvedilol 12.5 mg tablet 12.5 mg PO BID 07/14/23 07/14/23 History sacubitril 97 mg-valsartan 103 mg 1 tab PO BID 07/14/23 07/14/23 History tablet (Entresto) Patient History Medical History Pacemaker at end of battery life ICD (implantable cardioverter-defibrillator) in place History of CHF (congestive heart failure) CKD (chronic kidney disease) Atrial fibrillation Prostate cancer Diabetes mellitus, type II HLD (hyperlipidemia) HTN (hypertension) Surgical History History of prostate surgery [facility] [place] [place] Family History Father Stroke Social History Smoking Status: Never smoker Hx Alcohol Use: No Hx Substance Use: No Preferred Language: Serbian Communication Ability: Effective 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 Other Information That Helps Us Care for You: No Feels Safe at Home: Yes Safety Concerns: Feels Safe At This Time Assistive Devices: None Review of Systems 2 Review of Systems: All systems reviewed & are unremarkable except as noted in HPI & below Physical Exam 2 Physical Exam: Constitutional: No acute distress HEENT: EOMI, PERRLA Respiratory system: Good air entry bilaterally, no wheeze, no rhonchi, no crackles CVS: S1-S2 positive, no murmurs or gallops positive left-sided AICD Abdomen: Soft, nontender, nondistended, positive bowel sounds x4 Extremities: +2 pulses bilaterally radialis/ dorsalis pedis, no cyanosis, no edema Neuro: Awake alert oriented x3 Psych: Normal mood and affect G/U: No Cortes Skin: no rashes, warm and dry Lymphatic: no cervical or axillary lymphadenopathy Results & Data Results & Data Vital Signs (Past 12 Hours) Vital Signs Temp Pulse Pulse Resp BP BP Pulse Ox 07/15/23 16:10 136/87 07/15/23 16:05 70 142/101 H 07/15/23 15:30 70 16 07/15/23 15:29 133/93 07/15/23 15:29 70 17 07/15/23 15:15 71 16 07/15/23 15:00 111/79 07/15/23 15:00 70 15 07/15/23 14:45 70 16 07/15/23 14:30 71 16 07/15/23 14:15 70 18 07/15/23 14:01 70 16 07/15/23 14:01 123/75 07/15/23 14:00 70 18 07/15/23 13:45 70 16 07/15/23 13:30 70 8 L 07/15/23 13:15 70 14 07/15/23 13:00 70 18 07/15/23 13:00 137/86 07/15/23 12:45 70 12 07/15/23 12:30 70 22 07/15/23 12:15 70 12 07/15/23 12:00 70 14 07/15/23 12:00 137/91 07/15/23 11:45 72 16 07/15/23 11:30 70 15 07/15/23 11:15 70 19 07/15/23 11:00 125/93 07/15/23 11:00 70 15 07/15/23 10:45 73 20 07/15/23 10:30 71 14 07/15/23 10:15 70 17 07/15/23 10:00 133/90 07/15/23 10:00 71 13 07/15/23 09:45 70 19 07/15/23 09:30 70 13 07/15/23 09:15 69 15 07/15/23 09:00 72 17 07/15/23 09:00 130/90 07/15/23 08:45 74 28 H 07/15/23 08:30 73 17 07/15/23 08:15 70 7 L 07/15/23 08:12 36.5 C 71 22 115/77 98 07/15/23 08:00 115/77 07/15/23 08:00 71 6 L 07/15/23 07:45 71 5 L 07/15/23 07:30 71 18 07/15/23 07:30 72 07/15/23 07:00 98/71 L 07/15/23 07:00 70 16 07/15/23 06:30 70 3 L 07/15/23 06:00 108/76 07/15/23 06:00 69 14 07/15/23 05:30 71 15 07/15/23 05:00 101/66 07/15/23 05:00 70 14 07/15/23 04:30 71 12 O2 Del Method 07/15/23 16:10 07/15/23 16:05 07/15/23 15:30 07/15/23 15:29 07/15/23 15:29 07/15/23 15:15 07/15/23 15:00 07/15/23 15:00 07/15/23 14:45 07/15/23 14:30 07/15/23 14:15 07/15/23 14:01 07/15/23 14:01 07/15/23 14:00 07/15/23 13:45 07/15/23 13:30 07/15/23 13:15 07/15/23 13:00 07/15/23 13:00 07/15/23 12:45 07/15/23 12:30 07/15/23 12:15 07/15/23 12:00 07/15/23 12:00 07/15/23 11:45 07/15/23 11:30 07/15/23 11:15 07/15/23 11:00 07/15/23 11:00 07/15/23 10:45 07/15/23 10:30 07/15/23 10:15 07/15/23 10:00 07/15/23 10:00 07/15/23 09:45 07/15/23 09:30 07/15/23 09:15 07/15/23 09:00 07/15/23 09:00 07/15/23 08:45 07/15/23 08:30 07/15/23 08:15 07/15/23 08:12 Room Air 07/15/23 08:00 07/15/23 08:00 07/15/23 07:45 07/15/23 07:30 07/15/23 07:30 07/15/23 07:00 07/15/23 07:00 07/15/23 06:30 07/15/23 06:00 07/15/23 06:00 07/15/23 05:30 07/15/23 05:00 07/15/23 05:00 07/15/23 04:30 Laboratory Results 07/15/23 03:58 07/15/23 03:58 Coding Level of Care Code 11144 IN/OBS CONSULT LVL 4,60M Diagnoses Ventricular tachycardia I47.20 NICM (nonischemic cardiomyopathy) I42.8 Elevated troponin R77.8 History of CHF (congestive heart failure) Z86.79 ICD (implantable cardioverter-defibrillator) in place Z95.810 CKD (chronic kidney disease) N18.9 Paroxysmal atrial fibrillation I48.0 Atrial fibrillation type: paroxysmal Heart palpitations R00.2 (7) Atrial fibrillation Atrial fibrillation type: paroxysmal Qualified Code(s): I48.0 - Paroxysmal atrial fibrillation
[2023-07-15] MEDS ORDERED: carvediloL 12.5 MG TAB PO SCH (17:00)
--- NOTE | 2023-07-15 17:14 | Hospitalist Progress Note ---
Date of Service July 15, 2023 Assessment & Plan (1) Pacemaker at end of battery life: (2) Syncope, vasovagal: (3) Ventricular tachycardia: (4) History of CHF (congestive heart failure): (5) ICD (implantable cardioverter-defibrillator) in place: (6) Diabetes mellitus, type II: (7) HTN (hypertension): (8) HLD (hyperlipidemia): Plan Mr. Nixon is an 83 yr old inmate that presents to the ED with chest discomfort and palpitations that has been occurring over the past few days. 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 Recently cut his Coreg from 25mg to 12.5mg SIX days ago. Upon arrival in the ED he experienced a 6 beat run of symptomatic VT and reported feeling chest pressure and feeling 'weird'. [facility] was contacted by the ED and they said that he had [address] p[address] terminated [address] Jimenez from [facility] [place] discussed with ED provider as well. Last ECHO 2021: EF 35-40% with mild TR and moderate MR. 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 In the ED, CXR with trace p leural effusions. No leukocytosis, TSH normal, no otherwise electrolyte abnormalities. Troponin 21.7 which appears to be chronically mildly elevated but will trend to rule out any ACS. Suspect this is ischemic demand. Suspect patient experiencing his symptoms related to medication changes, complex heart failure and pacemaker nearing its end of life. Will place pt back on original Coreg dose, interrogate pacer, have anti-HTN available PRN, obtain recent ECHO, check Mg+, Phos, and trend Troponin with cardiology evaluation. Recurrent ventricular tachycardia ICD discharges Pacer interrogation completed. Approaching elective replacement time per cardiology Medtronic bMenuia QUAD MRI COTTON FARMER-D Bi-V AICD Pacer interrogation via [employer] indicated 16 pacer terminated events on 07/14 Continue carvedilol 12.5 mg twice daily Added metoprolol 25 mg every 6 hours Also received IV Lopressor Appreciate cardiology input Given persistent recurrent VT's, will transfer to ICU for further management for possible lidocaine infusion Appreciate family nurse practitioner help Monitor and replace electrolytes as needed HFrEF: chronic Last ECHO 01/2022 EF 35-40%, mild TR, mod MR, mild concentric LVH Repeat ECHO: Left ventricle is borderline dilated. Moderate lateral wall hypokinesis. Moderate to severe inferior wall hypokinesis. Left ventricle systolic function is mildly reduced. EF 40-45%. Moderate concentric LVH. Right ventricle is normal in size and function. Pacemaker lead in the right ventricle. Mild aortic regurgitation. Mild pulmonic valvular regurgitation. There is moderate mitral regurgitation. Mild troponin elevation likely secondary to demand ischemia from tachycardia Takes Entresto and Aldactone ;continue Cardiology on board HTN: Intermittent hypertensive urgency likely situational secondary to ICD discharge Continue Coreg, metoprolol IV labetalol as needed Monitor BP DM II: chronic HbA1c 6.6 Takes dapagliflozin; hold while inpt Monitor BGs Continue Insulin while hospitalized HLD chronic Lipid panel within normal limits takes atorvastatin;continue DVT Px: Lovenox SQ CODE STATUS Full code Disposition: [facility] as able Admission and Anticipated Discharge Date Admission Date: July 14, 2023 Subjective Patient is seen and examined at bedside Patient had multiple ICD discharges today Reports palpitations and continues to have dizziness Discussed with cardiology and ICU team No other complaints Plan to transfer to ICU for further management. Review of Systems Review of Systems: All systems reviewed & are unremarkable except as noted in Subjective Physical Exam Physical Exam: Physical Exam: Vitals signs as noted above General Appearance:Moderately built and nourished, no apparent distress Head: normocephalic, Atraumatic Eyes: normal inspection, EOMI Neck: supple, Trachea midline Respiratory/Chest: Normal breath sounds, CTA, No accessory muscle use Cardiovascular: S1, S2, No murmur, +ICD, paced rhythm Abdomen/GI:Soft, Non tender, Bowel sounds present Extremities/Musculoskeletal:normal inspection, no edema Neurologic/Psych:AAOX3, grossly no focal neurological deficits Skin: normal color, warm Results & Data Results & Data Vital Signs (Past 12 Hours) Vital Signs Temp Pulse Pulse Resp BP BP Pulse Ox 07/15/23 16:30 132/90 07/15/23 16:30 70 9 L 100 07/15/23 16:25 70 5 L 100 07/15/23 16:25 133/90 07/15/23 16:21 135/91 07/15/23 16:21 70 6 L 100 07/15/23 16:20 70 7 L 100 07/15/23 16:20 140/93 07/15/23 16:15 136/90 07/15/23 16:15 70 10 L 99 07/15/23 16:10 136/87 07/15/23 16:10 70 21 100 07/15/23 16:10 136/87 07/15/23 16:05 70 5 L 100 07/15/23 16:05 142/101 H 07/15/23 16:05 70 142/101 H 07/15/23 16:00 149/102 H 07/15/23 16:00 70 7 L 100 07/15/23 15:55 160/113 H 07/15/23 15:55 160/113 H 07/15/23 15:55 71 7 L 99 07/15/23 15:53 161/118 H 07/15/23 15:53 72 8 L 99 07/15/23 15:46 70 17 99 07/15/23 15:46 149/106 H 07/15/23 15:45 70 14 99 07/15/23 15:30 130/94 07/15/23 15:30 70 16 07/15/23 15:29 133/93 07/15/23 15:29 70 17 07/15/23 15:15 71 16 07/15/23 15:00 111/79 07/15/23 15:00 70 15 07/15/23 14:45 70 16 07/15/23 14:30 71 16 07/15/23 14:15 70 18 07/15/23 14:01 70 16 07/15/23 14:01 123/75 07/15/23 14:00 70 18 07/15/23 13:45 70 16 07/15/23 13:30 70 8 L 07/15/23 13:15 70 14 07/15/23 13:00 70 18 07/15/23 13:00 137/86 07/15/23 12:45 70 12 07/15/23 12:30 70 22 07/15/23 12:15 70 12 07/15/23 12:00 70 14 07/15/23 12:00 137/91 07/15/23 11:45 72 16 07/15/23 11:30 70 15 07/15/23 11:15 70 19 07/15/23 11:00 125/93 07/15/23 11:00 70 15 07/15/23 10:45 73 20 07/15/23 10:30 71 14 07/15/23 10:15 70 17 07/15/23 10:00 133/90 07/15/23 10:00 71 13 07/15/23 09:45 70 19 07/15/23 09:30 70 13 07/15/23 09:15 69 15 07/15/23 09:00 72 17 07/15/23 09:00 130/90 07/15/23 08:45 74 28 H 07/15/23 08:30 73 17 07/15/23 08:15 70 7 L 07/15/23 08:12 36.5 C 71 22 115/77 98 07/15/23 08:00 115/77 07/15/23 08:00 71 6 L 07/15/23 07:45 71 5 L 07/15/23 07:30 71 18 07/15/23 07:30 72 07/15/23 07:00 98/71 L 07/15/23 07:00 70 16 07/15/23 06:30 70 3 L 07/15/23 06:00 108/76 07/15/23 06:00 69 14 07/15/23 05:30 71 15 O2 Del Method 07/15/23 16:30 07/15/23 16:30 Room Air 07/15/23 16:25 07/15/23 16:25 07/15/23 16:21 07/15/23 16:21 07/15/23 16:20 07/15/23 16:20 07/15/23 16:15 07/15/23 16:15 07/15/23 16:10 07/15/23 16:10 07/15/23 16:10 07/15/23 16:05 07/15/23 16:05 07/15/23 16:05 07/15/23 16:00 07/15/23 16:00 07/15/23 15:55 07/15/23 15:55 07/15/23 15:55 07/15/23 15:53 07/15/23 15:53 07/15/23 15:46 07/15/23 15:46 07/15/23 15:45 07/15/23 15:30 07/15/23 15:30 07/15/23 15:29 07/15/23 15:29 07/15/23 15:15 07/15/23 15:00 07/15/23 15:00 07/15/23 14:45 07/15/23 14:30 07/15/23 14:15 07/15/23 14:01 07/15/23 14:01 07/15/23 14:00 07/15/23 13:45 07/15/23 13:30 07/15/23 13:15 07/15/23 13:00 07/15/23 13:00 07/15/23 12:45 07/15/23 12:30 07/15/23 12:15 07/15/23 12:00 07/15/23 12:00 07/15/23 11:45 07/15/23 11:30 07/15/23 11:15 07/15/23 11:00 07/15/23 11:00 07/15/23 10:45 07/15/23 10:30 07/15/23 10:15 07/15/23 10:00 07/15/23 10:00 07/15/23 09:45 07/15/23 09:30 07/15/23 09:15 07/15/23 09:00 07/15/23 09:00 07/15/23 08:45 07/15/23 08:30 07/15/23 08:15 07/15/23 08:12 Room Air 07/15/23 08:00 07/15/23 08:00 07/15/23 07:45 07/15/23 07:30 07/15/23 07:30 07/15/23 07:00 07/15/23 07:00 07/15/23 06:30 07/15/23 06:00 07/15/23 06:00 07/15/23 05:30 Laboratory Results Short CBC 07/14/23 07/15/23 Range/Units 17:04 03:58 WBC 6.35 5.87 (4.8-10.8) K/ul Hgb 13.5 L 13.2 L (14.0-18.0) g/dl Hct 39.5 L 39.6 L (42.0-52.0) % Plt Count 148 153 (130-400) K/uL BMP 07/14/23 07/15/23 17:04 03:58 Sodium 132 L 135 L Potassium 4.8 4.2 Chloride 101 103 Carbon Dioxide 27 29 BUN 23 22 Creatinine 1.42 H 1.24 Glucose 123 H 96 Calcium 9.8 9.4 Liver Function 07/14/23 07/15/23 Range/Units 17:04 03:58 Total Bilirubin 0.7 0.9 (0.2-1.0) mg/dl AST 22 19 (13-39) U/L ALT 17 14 (7-52) U/L Alkaline Phosphatase 70 64 (34-104) U/L Albumin 4.1 3.7 (3.4-5.0) gm/dl
[2023-07-15] MEDS ORDERED: LIDOCAINE 2% 20 MG/ML 5 ML SYR IV STA (17:39)
[2023-07-15] MEDS ORDERED: STAT IV Infusion **Titration per Protocol STA ×5 (17:39→23:36)
[2023-07-15] MEDS ORDERED: LIDOCAINE 2% 20 MG/ML 5 ML SYR IV ONE (17:44)
[2023-07-15] MEDS ORDERED: LIDOCAINE/D5W DRIP 4MG/ML 2,000 MG/500 ML BAG IV SCH ×2 (17:45→23:15)
[2023-07-15] MEDS: METOPROLOL TARTRATE 25 MG TAB PO SCH ×2 (17:57→20:47)
[2023-07-15] MEDS ORDERED: METOPROLOL TARTRATE 25 MG TAB PO SCH (19:30)
[2023-07-15] MEDS ORDERED: LORazepam 1 MG in SYRINGE 0.5 ML IV STA ×3 (19:57→20:52)
[2023-07-15] MEDS ORDERED: METOPROLOL TARTRATE 1 MG/ML VIAL IV PRN (20:06)
[2023-07-15] MEDS: ATORVASTATIN 10 MG TAB PO SCH (20:48)
[2023-07-15] MEDS ORDERED: LANTUS PER UNIT CHARGE SQ SCH (21:00)
[2023-07-15] MEDS ORDERED: 0.2 MICRON FILTER SET 1 EACH IV STA (21:19)
[2023-07-15] MEDS ORDERED: AMIODARONE IV BOLUS & DRIP IV STA (21:19)
[2023-07-15] MEDS ORDERED: AMIODARONE / D5W 150 MG/100 ML BAG IV STA (21:19)
[2023-07-15] MEDS ORDERED: AMIODARONE 150MG / 100ML D5W IV ONE (21:22)
[2023-07-15] MEDS ORDERED: AMIODARONE 360MG / 200ML D5W IV ONE (21:23)
[2023-07-15] MEDS: PHENYLEPHRINE/NSS 25 MG/250 ML BAG IV SCH (21:27)
[2023-07-15] MEDS ORDERED: AMIODARONE / D5W 360 MG/200 ML BAG IV ONE (21:29)
--- NOTE | 2023-07-15 21:31 | Communication Note ---
Date of Service: July 15, 2023 Unfortunately this evening patient has continued to have episodes of V. tach, and was received defibrillation with AICD x 3. In the past few hours patient has had total of 15 mg of IV metoprolol, lidocaine drip increased rate, and p.o. metoprolol 25 mg as well. He remains to have episodes of tachycardia with defibrillation despite this. Patient's blood pressure also becoming soft likely due to high-dose beta-blockers. I spoke with the patient about his allergy to amiodarone, and patient stated that he felt incapacitated at 1 point in a [employer] [place] store after taking amiodarone and also had a blood clot in his wrist after receiving IV amiodarone. Unsure if this is a true allergy or coincidental. I spoke with Dr. Jimenez with [facility] cardiology concerning the patient's case. At this point we will attempt to transition the patient from lidocaine drip to amiodarone, and monitor closely for adverse effects. Of note, patient's heart rate has been at an accelerated rate of over 160 with clear rhythm change that resembles wide-complex tachycardia on the monitor each time a shock is been delivered, and I do believe that these are appropriate shocks. I did give the patient a total of 2 mg of Ativan as well, as he has become anxious. Will repeat electrolytes as well to see if there is any deficiency that could be optimized. Will continue with plan discussed above in hopes that this resolves patient's episodes of V. tach. Coding Level of Care Code None
[2023-07-15] MEDS ORDERED: NOREPINEPHRINE/D5W 4 MG/250 ML IV ONE (22:50)
[2023-07-15] MEDS ORDERED: fentaNYL citrate PF 100 MCG/2 ML VIAL ONE (23:03)
[2023-07-15 23:15] LABS: BUN Creatinine Ratio 16.2 (10-20); Calcium 9.4 mg/dl (8.6-10.3); Est GFR (African American) 52.6 ml/min; Est GFR (Non-African American) 45.4 ml/min; Magnesium 2.3 mg/dl (1.7-2.4); Phosphorus 2.4 mg/dl (2.5-4.9); Potassium 4.4 mmol/L (3.5-5.1)
[2023-07-15] MEDS ORDERED: LACTATED RINGER'S 500 ML IV ONE (23:39)
[2023-07-15] MEDS ORDERED: fentaNYL citrate PF 100 MCG/2 ML VIAL IV STA (23:44)
[2023-07-15] MEDS: ESMOLOL / NSS 2,500 MG/250 ML BAG IV SCH (23:51)
--- NOTE | 2023-07-15 23:58 | Communication Note ---
Date of Service: July 15, 2023 Patient continued to have tachycardia with rates in the 140s. EKG revealed wide-complex tachycardia, and decision was made to cardiovert as patient was becoming increasingly hypotensive with systolic blood pressure in the 50s. This was shortly after starting amiodarone drip which was discontinued. Patient did initially convert back to paced rhythm following cardioversion, but subsequently returned to wide-complex tachycardia with rate again in the 140s 2 to 3 minutes after. I did speak with cardiology again who recommended starting esmolol drip. Patient was again cardioverted into paced rhythm and hemodynamics did improved with paced rhythm. Lidocaine drip now on in favor of amiodarone, with addition of esmolol. No electrolyte abnormalities on BMP. Phenylephrine also added with target blood pressure low normal considering underlying cardiomyopathy. Coding Level of Care Code None
[2023-07-16 00:35] LABS: Troponin I High Sensitivity 529.1 pg/ml (0-20)
[2023-07-16] MEDS: PHENYLEPHRINE/NSS 25 MG/250 ML BAG IV SCH ×4 (00:42→14:48)
[2023-07-16] MEDS: ESMOLOL / NSS 2,500 MG/250 ML BAG IV SCH ×9 (02:32→14:48)
[2023-07-16] MEDS ORDERED: AMIODARONE / D5W 360 MG/200 ML BAG IV SCH (03:30)
[2023-07-16] MEDS: METOPROLOL TARTRATE 25 MG TAB PO SCH (04:26)
[2023-07-16] MEDS ORDERED: LORazepam 0.25 MG in SYRINGE 0.125 ML IV STA (04:39)
[2023-07-16 05:27] LABS: BUN Creatinine Ratio 15.2 (10-20); Calcium 9.4 mg/dl (8.6-10.3); Creatinine Clr Calc Pharmacy 36.3 ml/min; Est GFR (African American) 44.2 ml/min; Est GFR (Non-African American) 38.1 ml/min; Magnesium 2.4 mg/dl (1.7-2.4); Phosphorus 2.5 mg/dl (2.5-4.9); Potassium 5.3 mmol/L (3.5-5.1)
[2023-07-16] MEDS: LEVOTHYROXINE SODIUM 100 MCG TABLET PO SCH (06:10)
[2023-07-16 07:21] LABS: Base Excess VBG -3.9 mEq/L; HCO3 VBG 22 mmol/L; Oxygen Saturation VBG 82.9 %; PCO2 VBG 40 mmHg (38-50); PO2 VBG 52 mmHg; pH VBG 7.34 (7.36-7.41)
[2023-07-16 07:50] LABS: Basophils # (auto) 0.03 K/uL (0.00-0.20); Basophils % (auto) 0.3 %; Eosinophils # (auto) 0.01 K/uL (0.00-0.50); Eosinophils % (auto) 0.1 %; Hematocrit (blood only) 47.7 % (42.0-52.0); Hemoglobin 15.9 g/dl (14.0-18.0); Immature Granulocytes # (auto) 0.09 K/uL (0.01-0.20); Immature Granulocytes % (auto) 0.9 %; Lymphocytes # (auto) 0.75 K/uL (1.20-3.40); Lymphocytes % (auto) 7.5 %; Mean Corpuscular Hemoglobin 30.9 pg (25.0-34.0); Mean Corpuscular Hgb Conc 33.3 g/dL (32.0-36.0); Mean Corpuscular Volume 92.6 fL (80.0-100.0); Mean Platelet Volume 11.7 fL (9.4-12.4); Monocytes # (auto) 0.41 K/uL (0.11-0.59); Monocytes % (auto) 4.1 %; Neutrophils # (auto) 8.69 K/uL (1.40-6.50); Neutrophils % (auto) 87.1 %; Platelet Count 222 K/uL (130-400); RDW Coefficient of Variation 12.9 % (11.5-14.5); RDW Standard Deviation 44.3 fL (36.4-46.3); Red Blood Count 5.15 M/uL (4.70-6.10); White Blood Count 9.98 K/ul (4.8-10.8)
[2023-07-16] MEDS: INSULIN ASPART PER UNIT CHARGE SC SCH ×2 (08:10→11:21)
[2023-07-16] MEDS: ENOXAPARIN INJ 40 MG/0.4 ML SYR SQ SCH (08:11)
[2023-07-16] MEDS: VALSARTAN/SACUBITRIL 103/97MG TAB PO SCH (08:13)
[2023-07-16] MEDS: SPIRONOLACTONE 25 MG TAB PO SCH (08:14)
[2023-07-16] MEDS ORDERED: fentaNYL citrate PF 100 MCG/2 ML VIAL IV STA (09:15)
[2023-07-16] MEDS ORDERED: MIDAZOLAM HCL 5 MG/ML 2ML VIAL ONE (09:17)
[2023-07-16] MEDS ORDERED: fentaNYL citrate PF 100 MCG/2 ML VIAL ONE (09:17)
[2023-07-16] MEDS ORDERED: ETOMIDATE 2 MG/ML 20 ML VIAL IV ONE (09:18)
[2023-07-16] MEDS ORDERED: MIDAZOLAM HCL 1 MG/ML 2ML VIAL ONE (09:19)
--- NOTE | 2023-07-16 09:27 | Communication Note ---
Date of Service: July 16, 2023 0900: patient with recurrent lower rate v-tach. Recently decreased lidocaine infusion. Patient had recurrent slow ventricular tachycardia: 140s and hypo tension systolic 60. Patient certainly symptomatic felt unwell. Still requiring phenylephrine infusion given 100 mcg bolus and 50 mcg fentanyl then he was synchronized cardioverted with 100 J x 1. Subsequent to the cardioversion patient's blood pressure 126/87 and paced rhythm. Coding Level of Care Code None
[2023-07-16] MEDS ORDERED: METOPROLOL TARTRATE 50 MG TAB PO ONE (10:00)
--- NOTE | 2023-07-16 10:59 | Critical Care Progress Note ---
Date of Service July 16, 2023 Assessment & Plan (1) Ventricular tachycardia: (2) NICM (nonischemic cardiomyopathy): (3) Elevated troponin: (4) History of CHF (congestive heart failure): (5) ICD (implantable cardioverter-defibrillator) in place: (6) CKD (chronic kidney disease): (7) Atrial fibrillation: (8) Heart palpitations: Plan Reason Critically Ill: 83-year-old male past medical history of V. tach s/p AICD, diabetes, hypothyroidism, hypertension, dyslipidemia, HFrEF was admitted because of recurrent V. tach with AICD firing. Neuro - [facility] ICU: Negative Cardiac - -- Ventricular storm Keep potassium greater than 4, magnesium greater than 2, phosphorus greater than 3 -50 mg metoprolol p.o. x 1 then reinstitute 25 mg every 6 hours -Oral metoprolol had been stopped secondary to nausea -Discussed with cardiology and pharmacy about availability of esmolol, attempt to wean and transition to oral versus IV metoprolol [employer] event was likely atrial in nature, different morphology than previous episodes of ventricular tachycardia -Attempt to wean lidocaine infusion -Continue phenylephrine for supplemental blood pressure support, wean as tolerated TSH 1.23 -- HFrEF Not in exacerbation 2D echo 01/2022: EF 35-40%, mild concentric LVH, moderate MR --Hypertension -Holding spironolactone and Coreg Respiratory - -- No acute issues right now Respiratory bio fire negative for everything GI - -- Cardiac diet RENAL/LYTES - -- Acute kidney injury/acute kidney failure in the setting of chronic kidney disease -Recheck BMP later today, suspect hyponatremia is likely secondary to esmolol infusion -Avoid hypotension - -- History of prostate cancer ENDO - -- Diabetes type 2 Continue with ICU hypoglycemia protocol --Hypothyroidism Continue with levothyroxine HEME - -- Normocytic anemia Monitor H&H ID - -- No acute issues --Prophylaxis VTE: Lovenox GI: None Lines: Peripheral Diet: Cardiac I have personally spent 50 minutes of critical care time in the direct management of this patient. This is a life/limb threatening event. This includes time spent evaluating patient, direct bedside care, chart review, placing orders, interpretation of diagnostic studies, discussion with consultants, patient, and/or family members regarding treatment decisions, as well as other required patient management activities. This time is exclusive of all separately billable procedures, and teaching time and separate from and in addition to any other critical care service time. Admission and Anticipated Discharge Date Admission Date: July 14, 2023 Subjective Overnight patient had multiple episodes of tachycardia with associated hypotension that necessitated cardioversion. Cardiology has been assisting in the management of the antiarrhythmics. Review of Systems Review of Systems: Patient feels unwell Physical Exam Physical Exam: General: Drowsy. nontoxic. Skin: Warm, dry, Head: Atraumatic Ears, nose, mouth and throat: airway patent Cardiovascular: Normal peripheral perfusion Bedside monitor: Paced rhythm Respiratory: no respiratory distress Gastrointestinal: Non distended Musculoskeletal: No deformity Results & Data Results & Data Vital Signs (Past 12 Hours) Vital Signs Pulse Resp BP Pulse Ox O2 Del Method O2 Flow Rate 07/16/23 09:34 70 126/87 07/16/23 09:06 70 07/16/23 08:30 70 18 98 Nasal Cannula 2 07/16/23 08:30 116/81 07/16/23 08:15 122/83 07/16/23 08:15 70 14 99 07/16/23 08:00 106/69 07/16/23 08:00 71 17 97 07/16/23 07:45 109/72 07/16/23 07:45 70 17 99 07/16/23 07:30 107/75 07/16/23 07:30 70 17 98 07/16/23 07:15 96/67 L 07/16/23 07:15 70 17 96 07/16/23 07:00 87/58 L 07/16/23 07:00 70 17 97 Nasal Cannula 2 07/16/23 06:37 70 114/80 07/16/23 06:00 118/77 07/16/23 06:00 70 21 94 07/16/23 05:45 70 15 96 07/16/23 05:45 118/80 07/16/23 05:30 118/81 07/16/23 05:30 70 15 94 07/16/23 05:15 70 20 93 07/16/23 05:15 126/84 07/16/23 05:00 125/88 07/16/23 05:00 70 10 L 94 07/16/23 04:59 70 151/106 H 07/16/23 04:45 151/106 H 07/16/23 04:45 70 20 94 07/16/23 04:30 149/98 H 07/16/23 04:30 70 20 98 07/16/23 04:15 70 22 96 07/16/23 04:15 133/95 07/16/23 04:00 136/96 07/16/23 04:00 70 18 95 07/16/23 03:45 70 23 97 07/16/23 03:45 137/97 07/16/23 03:30 146/104 H 07/16/23 03:30 70 19 97 07/16/23 03:25 134/95 07/16/23 03:25 70 18 98 07/16/23 03:20 70 13 97 07/16/23 03:20 143/101 H 07/16/23 03:15 146/101 H 07/16/23 03:15 70 9 L 99 07/16/23 03:10 147/117 H 07/16/23 03:10 71 22 98 07/16/23 03:07 135/89 07/16/23 03:07 75 25 H 07/16/23 03:07 73 135/89 07/16/23 03:00 146/97 H 07/16/23 03:00 70 12 96 07/16/23 02:55 140/94 07/16/23 02:55 70 12 97 07/16/23 02:50 139/93 07/16/23 02:50 70 22 97 07/16/23 02:45 70 12 94 07/16/23 02:45 147/95 H 07/16/23 02:40 70 9 L 97 07/16/23 02:40 140/95 07/16/23 02:35 141/97 H 07/16/23 02:35 70 12 97 07/16/23 02:30 70 4 L 96 07/16/23 02:30 141/95 H 07/16/23 02:25 149/102 H 07/16/23 02:25 70 10 L 92 07/16/23 02:21 99/60 L 07/16/23 02:21 70 9 L 94 07/16/23 02:15 134 H 25 H 93 07/16/23 02:15 103/82 07/16/23 02:10 106/89 07/16/23 02:10 133 H 21 97 07/16/23 02:05 97/78 L 07/16/23 02:05 135 H 19 96 07/16/23 02:01 137 H 16 97 07/16/23 02:01 90/71 L 07/16/23 02:00 139 H 23 59 L 07/16/23 01:55 70 17 99 07/16/23 01:55 143/101 H 07/16/23 01:51 70 20 96 07/16/23 01:51 142/91 H 07/16/23 01:47 137 H 11 L 95 07/16/23 01:47 68/52 L 07/16/23 01:45 133 H 17 90 07/16/23 01:42 138 H 17 95 07/16/23 01:42 107/82 07/16/23 01:35 133 H 20 92 07/16/23 01:35 117/89 07/16/23 01:30 134 H 19 97 07/16/23 01:30 107/81 07/16/23 01:26 138 H 21 82 L 07/16/23 01:26 108/89 07/16/23 01:16 140 H 22 96 07/16/23 01:16 99/62 L 07/16/23 01:15 141 H 18 75 L 07/16/23 01:11 108/65 07/16/23 01:11 140 H 21 94 07/16/23 01:05 138 H 8 L 89 L 07/16/23 01:05 94/73 L 07/16/23 01:00 140 H 25 H 96 07/16/23 00:46 141 H 85/65 L 07/16/23 00:41 145 H 20 94 07/16/23 00:41 59/48 L 07/16/23 00:35 143/95 H 07/16/23 00:35 70 17 96 07/16/23 00:30 143/95 H 07/16/23 00:30 70 17 95 07/16/23 00:25 70 21 96 07/16/23 00:25 151/99 H 07/16/23 00:20 70 22 94 07/16/23 00:20 154/107 H 07/16/23 00:15 99/71 L 07/16/23 00:15 141 H 23 94 07/16/23 00:10 92/63 L 07/16/23 00:10 141 H 23 90 07/16/23 00:05 143 H 10 L 91 07/16/23 00:05 79/57 L 07/16/23 00:01 145 H 21 85 L 07/16/23 00:01 75/57 L 07/16/23 00:00 144 H 24 85 L 07/15/23 23:56 145 H 22 93 07/15/23 23:56 145/87 H 07/15/23 23:50 144 H 24 93 07/15/23 23:50 63/49 L 07/15/23 23:49 144 H 8 L 94 07/15/23 23:49 54/40 L 07/15/23 23:45 70 17 91 07/15/23 23:45 118/72 07/15/23 23:40 120/76 07/15/23 23:40 70 15 93 07/15/23 23:35 70 17 95 07/15/23 23:35 124/78 07/15/23 23:30 125/80 07/15/23 23:30 70 13 91 07/15/23 23:25 72 9 L 92 07/15/23 23:25 138/85 07/15/23 23:24 70 8 L 80 L 07/15/23 23:24 135/87 07/15/23 23:20 145 H 24 95 07/15/23 23:20 71/52 L 07/15/23 23:17 145 H 17 92 07/15/23 23:17 60/41 L 07/15/23 23:15 146 H 19 95 07/15/23 23:10 140/96 07/15/23 23:10 71 20 95 07/15/23 23:05 94 07/15/23 23:05 99/68 L 07/15/23 23:00 144 H 20 96 07/15/23 23:00 103/71 07/15/23 22:55 99/68 L 07/15/23 22:55 143 H 24 92 Critical Care Results & Data Vital Signs (Past 12 Hours) Vital Signs Pulse Resp BP Pulse Ox O2 Del Method O2 Flow Rate 07/16/23 09:34 70 126/87 07/16/23 09:06 70 07/16/23 08:30 70 18 98 Nasal Cannula 2 07/16/23 08:30 116/81 07/16/23 08:15 122/83 07/16/23 08:15 70 14 99 07/16/23 08:00 106/69 07/16/23 08:00 71 17 97 07/16/23 07:45 109/72 07/16/23 07:45 70 17 99 07/16/23 07:30 107/75 07/16/23 07:30 70 17 98 07/16/23 07:15 96/67 L 07/16/23 07:15 70 17 96 07/16/23 07:00 87/58 L 07/16/23 07:00 70 17 97 Nasal Cannula 2 07/16/23 06:37 70 114/80 07/16/23 06:00 118/77 07/16/23 06:00 70 21 94 07/16/23 05:45 70 15 96 07/16/23 05:45 118/80 07/16/23 05:30 118/81 07/16/23 05:30 70 15 94 07/16/23 05:15 70 20 93 07/16/23 05:15 126/84 07/16/23 05:00 125/88 07/16/23 05:00 70 10 L 94 07/16/23 04:59 70 151/106 H 07/16/23 04:45 151/106 H 07/16/23 04:45 70 20 94 07/16/23 04:30 149/98 H 07/16/23 04:30 70 20 98 07/16/23 04:15 70 22 96 07/16/23 04:15 133/95 07/16/23 04:00 136/96 07/16/23 04:00 70 18 95 07/16/23 03:45 70 23 97 07/16/23 03:45 137/97 07/16/23 03:30 146/104 H 07/16/23 03:30 70 19 97 07/16/23 03:25 134/95 07/16/23 03:25 70 18 98 07/16/23 03:20 70 13 97 07/16/23 03:20 143/101 H 07/16/23 03:15 146/101 H 07/16/23 03:15 70 9 L 99 07/16/23 03:10 147/117 H 07/16/23 03:10 71 22 98 07/16/23 03:07 135/89 07/16/23 03:07 75 25 H 07/16/23 03:07 73 135/89 07/16/23 03:00 146/97 H 07/16/23 03:00 70 12 96 07/16/23 02:55 140/94 07/16/23 02:55 70 12 97 07/16/23 02:50 139/93 07/16/23 02:50 70 22 97 07/16/23 02:45 70 12 94 07/16/23 02:45 147/95 H 07/16/23 02:40 70 9 L 97 07/16/23 02:40 140/95 07/16/23 02:35 141/97 H 07/16/23 02:35 70 12 97 07/16/23 02:30 70 4 L 96 07/16/23 02:30 141/95 H 07/16/23 02:25 149/102 H 07/16/23 02:25 70 10 L 92 07/16/23 02:21 99/60 L 07/16/23 02:21 70 9 L 94 07/16/23 02:15 134 H 25 H 93 07/16/23 02:15 103/82 07/16/23 02:10 106/89 07/16/23 02:10 133 H 21 97 07/16/23 02:05 97/78 L 07/16/23 02:05 135 H 19 96 07/16/23 02:01 137 H 16 97 07/16/23 02:01 90/71 L 07/16/23 02:00 139 H 23 59 L 07/16/23 01:55 70 17 99 07/16/23 01:55 143/101 H 07/16/23 01:51 70 20 96 07/16/23 01:51 142/91 H 07/16/23 01:47 137 H 11 L 95 07/16/23 01:47 68/52 L 07/16/23 01:45 133 H 17 90 07/16/23 01:42 138 H 17 95 07/16/23 01:42 107/82 07/16/23 01:35 133 H 20 92 07/16/23 01:35 117/89 07/16/23 01:30 134 H 19 97 07/16/23 01:30 107/81 07/16/23 01:26 138 H 21 82 L 07/16/23 01:26 108/89 07/16/23 01:16 140 H 22 96 07/16/23 01:16 99/62 L 07/16/23 01:15 141 H 18 75 L 07/16/23 01:11 108/65 07/16/23 01:11 140 H 21 94 07/16/23 01:05 138 H 8 L 89 L 07/16/23 01:05 94/73 L 07/16/23 01:00 140 H 25 H 96 07/16/23 00:46 141 H 85/65 L 07/16/23 00:41 145 H 20 94 07/16/23 00:41 59/48 L 07/16/23 00:35 143/95 H 07/16/23 00:35 70 17 96 07/16/23 00:30 143/95 H 07/16/23 00:30 70 17 95 07/16/23 00:25 70 21 96 07/16/23 00:25 151/99 H 07/16/23 00:20 70 22 94 07/16/23 00:20 154/107 H 07/16/23 00:15 99/71 L 07/16/23 00:15 141 H 23 94 07/16/23 00:10 92/63 L 07/16/23 00:10 141 H 23 90 07/16/23 00:05 143 H 10 L 91 07/16/23 00:05 79/57 L 07/16/23 00:01 145 H 21 85 L 07/16/23 00:01 75/57 L 07/16/23 00:00 144 H 24 85 L 07/15/23 23:56 145 H 22 93 07/15/23 23:56 145/87 H 07/15/23 23:50 144 H 24 93 07/15/23 23:50 63/49 L 07/15/23 23:49 144 H 8 L 94 07/15/23 23:49 54/40 L 07/15/23 23:45 70 17 91 07/15/23 23:45 118/72 07/15/23 23:40 120/76 07/15/23 23:40 70 15 93 07/15/23 23:35 70 17 95 07/15/23 23:35 124/78 12/31/23 23:30 125/80 07/15/23 23:30 70 13 91 07/15/23 23:25 72 9 L 92 07/15/23 23:25 138/85 07/15/23 23:24 70 8 L 80 L 07/15/23 23:24 135/87 07/15/23 23:20 145 H 24 95 07/15/23 23:20 71/52 L 07/15/23 23:17 145 H 17 92 07/15/23 23:17 60/41 L 07/15/23 23:15 146 H 19 95 07/15/23 23:10 140/96 07/15/23 23:10 71 20 95 07/15/23 23:05 94 07/15/23 23:05 99/68 L 07/15/23 23:00 144 H 20 96 07/15/23 23:00 103/71 07/15/23 22:55 99/68 L 07/15/23 22:55 143 H 24 92 Lab & Micro Results (Past 24 Hours) RBC 5.15 M/uL (4.70-6.10) 07/16/23 WBC 9.98 K/ul (4.8-10.8) 07/16/23 Hgb 15.9 g/dl (14.0-18.0) 07/16/23 Hct 47.7 % (42.0-52.0) 07/16/23 MCV 92.6 fL (80.0-100.0) 07/16/23 MCH 30.9 pg (25.0-34.0) 07/16/23 MCHC 33.3 g/dL (32.0-36.0) 07/16/23 RDW Standard Deviation 44.3 fL (36.4-46.3) 07/16/23 RDW Coefficient of Variation 12.9 % (11.5-14.5) 07/16/23 Plt Count 222 K/uL (130-400) 07/16/23 MPV 11.7 fL (9.4-12.4) 07/16/23 Neutrophils (%) (Auto) 87.1 % 07/16/23 Lymphocytes (%) (Auto) 7.5 % 07/16/23 Monocytes # (Auto) 0.41 K/uL (0.11-0.59) 07/16/23 Eosinophils # (Auto) 0.01 K/uL (0.00-0.50) 07/16/23 Immature Granulocyte % (Auto) 0.9 % 07/16/23 Neutrophils # (Auto) 8.69 K/uL (1.40-6.50) H 07/16/23 Lymphocytes # (Auto) 0.75 K/uL (1.20-3.40) L 07/16/23 Monocytes # (Auto) 0.41 K/uL (0.11-0.59) 07/16/23 Eosinophils # (Auto) 0.01 K/uL (0.00-0.50) 07/16/23 Basophils # (Auto) 0.03 K/uL (0.00-0.20) 07/16/23 Immature Granulocyte # (Auto) 0.09 K/uL (0.01-0.20) 4 Na 129 mmol/L (136-145) L 07/16/23 K 5.3 mmol/L (3.5-5.1) H 07/16/23 Cl 101 mmol/L (98-107) 07/16/23 CO2 22 mmol/L (21-32) 07/16/23 Anion Gap 6 (3-11) 07/16/23 BUN 25 mg/dl (6-23) H 07/16/23 Creatinine 1.64 mg/dl (0.6-1.4) H 07/16/23 Estimated GFR ( Amer) 44.2 ml/min 07/16/23 Estimated GFR (Non-Af Amer) 38.1 ml/min 07/16/23 BUN/Creatinine Ratio 15.2 (10-20) 07/16/23 Glu 163 mg/dl (70-99(Fasting)) H 07/16/23 Ca 9.4 mg/dl (8.6-10.3) 07/16/23 Phosphorus Level 2.5 mg/dl (2.5-4.9) 07/16/23 Mg 2.4 mg/dl (1.7-2.4) 07/16/23 04:50 Calcium Level 9.4 mg/dl (8.6-10.3) 07/16/23 04:50 Ionized Calcium 1.22 mmol/L (1.12-1.32) 07/15/23 22:44 Venous Blood pH 7.34 (7.36-7.41) L 07/16/23 07:13 Venous Blood Partial Pressure CO2 40 mmHg (38-50) 07/16/23 07:1 3 Venous Blood Partial Pressure O2 52 mmHg 07/16/23 07:13 Venous Blood HCO3 22 mmol/L 07/16/23 07:13 Venous Blood Base Excess -3.9 mEq/L 07/16/23 07:13 Venous Blood Oxygen Saturation 82.9 % 07/16/23 07:13 I & O Totals 24 Hours 07/15/23 07/16/23 07/17/23 06:59 06:59 06:59 Intake Total 250 / 250 2371.969 / 2371.969 578.374 / 578.374 Output Total 650 / 650 Balance 250 / 250 1721.969 / 1721.969 578.374 / 578.374 Cumulative 07/14/23 15:57 thru 07/16/23 09:44 Intake Total 3200.343 Output Total 650 Balance 2550.343 RT Ventilator Mngmt (Last Documented) Ventilator Ordered Settings Respiratory Rate 18 07/16/23 08:30 Ventilator - PT Measurements Respiratory Rate 18 Coding Level of Care Code 57613 CRITICAL CARE 1ST 30-74M Diagnoses Ventricular tachycardia I47.20 NICM (nonischemic cardiomyopathy) I42.8 Elevated troponin R77.8 History of CHF (congestive heart failure) Z86.79 ICD (implantable cardioverter-defibrillator) in place Z95.810 CKD (chronic kidney disease) N18.9 Paroxysmal atrial fibrillation I48.0 Atrial fibrillation type: paroxysmal Heart palpitations R00.2 (7) Atrial fibrillation Atrial fibrillation type: paroxysmal Qualified Code(s): I48.0 - Paroxysmal atrial fibrillation
--- NOTE | 2023-07-16 11:43 | Cardiology Progress Note ---
Date of Service July 16, 2023 Assessment & Plan (1) Ventricular tachycardia: Plan: Multiple episodes of ventricular tachycardia overnight with multiple ICD shocks. Device interrogation confirmed ventricular tachycardia (QRS duration has varied, raising the possibility of atrial tachydysrhythmia, but electrograms show only ventricular tachycardia). Case discussed with Dr. Malave (electrophysiology), options are limited given nonresponsiveness to medical management. Recommended transfer to tertiary care center for ventricular tachycardia ablation. Had hoped to reduce lidocaine (which may be contributing to nausea) and loaded with oral beta-blockers, but due to vomiting he has not tolerated any oral medication.. Esmolol nearly depleted, would need to have stock shift from other hospitals if this is to be continued. Will again attempt to reduce lidocaine to diminish side effects, continue esmolol until stock depleted then shift to IV metoprolol boluses. Wean phenylephrine if BP allows. (2) ICD (implantable cardioverter-defibrillator) in place: Plan: Interrogation shows 5 months to elective replacement time, however this does not factor in the multiple ICD shocks occurring which will deplete the device earlier. If transfer is not imminent, Dr. Malave could reprogram device to utilize antitachycardia pacing more often and diminish frequency of shocks, but this will not change his propensity to ventricular tachydysrhythmia's. (3) NICM (nonischemic cardiomyopathy): Plan: Echocardiogram shows mild improvement in left ventricular systolic function over the past year (EF increase from 35% to 40%). Carvedilol and Entresto held due to hypotension concerns. (4) Mitral regurgitation: Plan: Stable moderate mitral regurgitation, unchanged over the past year. Admission and Anticipated Discharge Date Admission Date: July 14, 2023 Subjective Eventful night with recurrent tachydysrhythmia. Interrogation of device this morning shows that despite varying QRS duration, tachydysrhythmia is consistently ventricular tachycardia and not an atrial dysrhythmia. Patient has had intermittent hypotension and is on phenylephrine. Complains of nausea and had several episodes of vomiting after taking pills orally. No chest pain or dyspnea, does sometimes note tachypalpitations during sustained ventricular tachycardia. Unable to dose IV metoprolol due to hypotension, trial of amiodarone abandoned due to hypotension, lidocaine alone insufficient to control rhythm, seems to have responded to addition of esmolol with 6 hours free of ventricular tachycardia, however shortly after lidocaine taper attempted he had a 4-minute episode of ventricular tachycardia this morning. At the time of my evaluation this morning, he noted fatigue and nausea, no other somatic complaints. Rhythm was paced. Physical Exam Physical Exam: Appears fatigued but not acutely distressed. BP normotensive (on phenylephrine). Pulse 70 bpm and regular. Skin: no ecchymoses or generalized lesions. HEENT: unremarkable. Neck: JVP at the clavicle at 90 degrees, no carotid bruits. Lungs: clear. Cardiac: regular rhythm, normal S1-2, 2/6 apical holosystolic murmur rating to the axilla. Abdomen: benign. Extremities: no edema, pulses intact. Neurologic: Mildly somnolent but generally normal affect and conversation, grossly nonfocal. Results & Data Laboratory Results Sodium 129, potassium 5.3, BUN 25, creatinine 1.64 (1.42 yesterday). Troponin yesterday 529, today 241. PG Care Time/CCT Total # of Minutes Spent Total Time Spent with Patient: Total time spent is greater than 50% in coordination of care (as documented) at patient's floor/unit and/or counseling patient: Coding Level of Care Code 47154 SUB INP/OBS CARE 3/50MIN Diagnoses Ventricular tachycardia I47.20 ICD (implantable cardioverter-defibrillator) in place Z95.810 NICM (nonischemic cardiomyopathy) I42.8 Mitral regurgitation I34.0
[2023-07-16] MEDS: BIMATOPROST 0.01% OP SOLN 2.5 ML BTL OP SCH (13:03)
[2023-07-16 13:30] LABS: BUN Creatinine Ratio 18.2 (10-20); Calcium 8.9 mg/dl (8.6-10.3); Creatinine Clr Calc Pharmacy 41.7 ml/min; Est GFR (African American) 52.1 ml/min; Potassium 4.9 mmol/L (3.5-5.1)
--- NOTE | 2023-07-16 14:25 | Hospitalist Progress Note ---
Date of Service July 16, 2023 Assessment & Plan (1) Pacemaker at end of battery life: (2) Syncope, vasovagal: (3) Ventricular tachycardia: (4) History of CHF (congestive heart failure): (5) ICD (implantable cardioverter-defibrillator) in place: (6) Diabetes mellitus, type II: (7) HTN (hypertension): (8) HLD (hyperlipidemia): Plan Mr. Nixon is an 83 yr old inmate that presents to the ED with chest discomfort and palpitations that has been occurring over the past few days. 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 Recently cut his Coreg from 25mg to 12.5mg SIX days ago. Upon arrival in the ED he experienced a 6 beat run of symptomatic VT and reported feeling chest pressure and feeling 'weird'. [facility] was contacted by the ED and they said that he had 16 pacer terminated events today[address] Dr. Jimenez from [facility] Cards discussed with ED provider as well. Last ECHO 2021: EF 35-40% with mild TR and moderate MR. 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 In the ED, CXR with trace ple ural effusions. No leukocytosis, TSH normal, no otherwise electrolyte abnormalities. Troponin 21.7 which appears to be chronically mildly elevated but will trend to rule out any ACS. Suspect this is ischemic demand. Suspect patient experiencing his symptoms related to medication changes, complex heart failure and pacemaker nearing its end of life. Will place pt back on original Coreg dose, interrogate pacer, have anti-HTN available PRN, obtain recent ECHO, check Mg+, Phos, and trend Troponin with cardiology evaluation. Recurrent ventricular tachycardia ICD discharges Pacer interrogation completed. 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 Pacer interrogation via [facility] indicated 16 pacer terminated events on 07/14 Continue carvedilol 12.5 mg twice daily--due to hypotension Added metoprolol 25 mg every 6 hours Also received IV Lopressor Appreciate cardiology input Appreciate label sewer help Monitor and replace electrolytes as needed Recurrent VT's despite being on esmolol drip Received phenylephrine for blood pressure support Also on lidocaine infusion--weaned off Cardiology recommends transfer to tertiary care facility for possible ablation Patient transferred to [facility] for further management HFrEF: chronic Last ECHO 01/2022 EF 35-40%, mild TR, mod MR, mild concentric LVH Repeat ECHO: Left ventricle is borderline dilated. Moderate lateral wall hypokinesis. Moderate to severe inferior wall hypokinesis. Left ventricle systolic function is mildly reduced. EF 40-45%. Moderate concentric LVH. Right ventricle is normal in size and function. Pacemaker lead in the right ventricle. Mild aortic regurgitation. Mild pulmonic valvular regurgitation. There is moderate mitral regurgitation. Mild troponin elevation likely secondary to demand ischemia from tachycardia Takes Entresto and Aldactone--held due to hypotension Cardiology on board HTN: Intermittent hypertensive urgency likely situational secondary to ICD discharge Related to old hypertension Coreg held due to hypotension Monitor BP, needed pressor support DM II: chronic HbA1c 6.6 Takes dapagliflozin; hold while inpt Monitor BGs Continue Insulin while hospitalized HLD chronic Lipid panel within normal limits takes atorvastatin;continue DVT Px: Lovenox SQ CODE STATUS Full code Disposition: [facility] Admission and Anticipated Discharge Date Admission Date: July 14, 2023 Subjective Patient is seen and examined at bedside Patient had nausea, vomiting Had recurrent episodes of VT Currently denies any chest pain, dyspnea Cardiology, ICU team recommends transfer to tertiary care facility for ablation Review of Systems Review of Systems: All systems reviewed & are unremarkable except as noted in Subjective Physical Exam Physical Exam: Physical Exam: Vitals signs as noted above General Appearance:Moderately built and nourished, no apparent distress Head: normocephalic, Atraumatic Eyes: normal inspection, EOMI Neck: supple, Trachea midline Respiratory/Chest: Normal breath sounds, CTA, No accessory muscle use Cardiovascular: S1, S2, No murmur, +ICD, paced rhythm Abdomen/GI:Soft, Non tender, Bowel sounds present Extremities/Musculoskeletal:normal inspection, no edema Neurologic/Psych:AAOX3, grossly no focal neurological deficits Skin: normal color, warm Results & Data Results & Data Vital Signs (Past 12 Hours) Vital Signs Temp Pulse Pulse Resp BP BP Pulse Ox 07/16/23 14:00 36.5 C 71 14 115/77 98 07/16/23 13:00 133/88 07/16/23 13:00 70 14 98 07/16/23 12:50 132/86 07/16/23 12:50 70 17 96 07/16/23 12:45 70 16 97 07/16/23 12:40 131/87 07/16/23 12:40 70 17 96 07/16/23 12:30 70 16 96 07/16/23 12:30 128/87 07/16/23 12:20 119/76 07/16/23 12:20 70 16 97 07/16/23 12:15 70 15 96 07/16/23 12:10 117/78 07/16/23 12:10 70 15 97 07/16/23 12:00 122/82 07/16/23 12:00 70 17 96 07/16/23 11:50 131/88 07/16/23 11:50 70 17 98 07/16/23 11:45 70 18 97 07/16/23 11:40 70 15 97 07/16/23 11:40 134/92 07/16/23 11:31 139/97 07/16/23 11:31 74 17 94 07/16/23 11:30 70 16 97 07/16/23 11:20 131/83 07/16/23 11:20 70 15 96 07/16/23 11:15 70 15 96 07/16/23 11:10 70 17 95 07/16/23 11:10 124/81 07/16/23 11:00 132/90 07/16/23 11:00 70 16 96 07/16/23 10:50 130/91 07/16/23 10:50 70 18 96 07/16/23 10:45 70 18 95 07/16/23 10:40 136/94 07/16/23 10:40 70 19 96 07/16/23 10:30 126/85 07/16/23 10:30 70 15 95 07/16/23 10:20 116/76 07/16/23 10:20 70 14 94 07/16/23 10:15 70 17 92 07/16/23 10:10 128/83 07/16/23 10:10 70 16 93 07/16/23 10:00 118/79 07/16/23 10:00 70 13 94 07/16/23 09:50 111/75 07/16/23 09:50 70 15 90 07/16/23 09:45 70 15 89 L 07/16/23 09:40 117/79 07/16/23 09:40 70 12 92 07/16/23 09:34 70 126/87 07/16/23 09:30 126/87 07/16/23 09:30 70 12 88 L 07/16/23 09:20 137/99 07/16/23 09:20 75 14 97 07/16/23 09:15 141 H 8 L 97 07/16/23 09:13 58/43 L 07/16/23 09:13 143 H 24 94 07/16/23 09:11 69/54 L 07/16/23 09:11 140 H 20 89 L 07/16/23 09:06 70 07/16/23 09:00 127/89 07/16/23 09:00 70 97 07/16/23 08:30 70 18 98 07/16/23 08:30 116/81 07/16/23 08:15 122/83 07/16/23 08:15 70 14 99 07/16/23 08:00 106/69 07/16/23 08:00 71 17 97 07/16/23 07:45 109/72 07/16/23 07:45 70 17 99 07/16/23 07:30 107/75 07/16/23 07:30 70 17 98 07/16/23 07:15 96/67 L 07/16/23 07:15 70 17 96 07/16/23 07:00 87/58 L 07/16/23 07:00 70 17 97 07/16/23 06:37 70 114/80 07/16/23 06:00 118/77 07/16/23 06:00 70 21 94 07/16/23 05:45 70 15 96 07/16/23 05:45 118/80 07/16/23 05:30 118/81 07/16/23 05:30 70 15 94 07/16/23 05:15 70 20 93 07/16/23 05:15 126/84 07/16/23 05:00 125/88 07/16/23 05:00 70 10 L 94 07/16/23 04:59 70 151/106 H 07/16/23 04:45 151/106 H 07/16/23 04:45 70 20 94 07/16/23 04:30 149/98 H 07/16/23 04:30 70 20 98 07/16/23 04:15 70 22 96 07/16/23 04:15 133/95 07/16/23 04:00 136/96 07/16/23 04:00 70 18 95 07/16/23 03:45 70 23 97 07/16/23 03:45 137/97 07/16/23 03:30 146/104 H 07/16/23 03:30 70 19 97 07/16/23 03:25 134/95 07/16/23 03:25 70 18 98 07/16/23 03:20 70 13 97 07/16/23 03:20 143/101 H 07/16/23 03:15 146/101 H 07/16/23 03:15 70 9 L 99 07/16/23 03:10 147/117 H 07/16/23 03:10 71 22 98 07/16/23 03:07 135/89 07/16/23 03:07 75 25 H 07/16/23 03:07 73 135/89 07/16/23 03:00 146/97 H 07/16/23 03:00 70 12 96 07/16/23 02:55 140/94 07/16/23 02:55 70 12 97 07/16/23 02:50 139/93 07/16/23 02:50 70 22 97 07/16/23 02:45 70 12 94 07/16/23 02:45 147/95 H 07/16/23 02:40 70 9 L 97 07/16/23 02:40 140/95 07/16/23 02:35 141/97 H 07/16/23 02:35 70 12 97 07/16/23 02:30 70 4 L 96 07/16/23 02:30 141/95 H O2 Del Method O2 Flow Rate 07/16/23 14:00 07/16/23 13:00 07/16/23 13:00 07/16/23 12:50 07/16/23 12:50 07/16/23 12:45 07/16/23 12:40 07/16/23 12:40 07/16/23 12:30 07/16/23 12:30 07/16/23 12:20 07/16/23 12:20 07/16/23 12:15 Nasal Cannula 2 07/16/23 12:10 07/16/23 12:10 07/16/23 12:00 07/16/23 12:00 07/16/23 11:50 07/16/23 11:50 07/16/23 11:45 07/16/23 11:40 07/16/23 11:40 07/16/23 11:31 07/16/23 11:31 07/16/23 11:30 07/16/23 11:20 07/16/23 11:20 07/16/23 11:15 07/16/23 11:10 07/16/23 11:10 07/16/23 11:00 07/16/23 11:00 07/16/23 10:50 07/16/23 10:50 07/16/23 10:45 07/16/23 10:40 07/16/23 10:40 07/16/23 10:30 07/16/23 10:30 07/16/23 10:20 07/16/23 10:20 07/16/23 10:15 07/16/23 10:10 07/16/23 10:10 07/16/23 10:00 07/16/23 10:00 07/16/23 09:50 07/16/23 09:50 07/16/23 09:45 07/16/23 09:40 07/16/23 09:40 07/16/23 09:34 07/16/23 09:30 07/16/23 09:30 07/16/23 09:20 07/16/23 09:20 07/16/23 09:15 07/16/23 09:13 07/16/23 09:13 07/16/23 09:11 07/16/23 09:11 07/16/23 09:06 07/16/23 09:00 07/16/23 09:00 Nasal Cannula 2 07/16/23 08:30 Nasal Cannula 2 07/16/23 08:30 07/16/23 08:15 07/16/23 08:15 07/16/23 08:00 07/16/23 08:00 07/16/23 07:45 07/16/23 07:45 07/16/23 07:30 07/16/23 07:30 07/16/23 07:15 07/16/23 07:15 07/16/23 07:00 07/16/23 07:00 Nasal Cannula 2 07/16/23 06:37 07/16/23 06:00 07/16/23 06:00 07/16/23 05:45 07/16/23 05:45 07/16/23 05:30 07/16/23 05:30 07/16/23 05:15 07/16/23 05:15 07/16/23 05:00 07/16/23 05:00 07/16/23 04:59 07/16/23 04:45 07/16/23 04:45 07/16/23 04:30 07/16/23 04:30 07/16/23 04:15 07/16/23 04:15 07/16/23 04:00 07/16/23 04:00 07/16/23 03:45 07/16/23 03:45 07/16/23 03:30 07/16/23 03:30 07/16/23 03:25 07/16/23 03:25 07/16/23 03:20 07/16/23 03:20 07/16/23 03:15 07/16/23 03:15 07/16/23 03:10 07/16/23 03:10 07/16/23 03:07 07/16/23 03:07 07/16/23 03:07 07/16/23 03:00 07/16/23 03:00 07/16/23 02:55 07/16/23 02:55 07/16/23 02:50 07/16/23 02:50 07/16/23 02:45 07/16/23 02:45 07/16/23 02:40 07/16/23 02:40 07/16/23 02:35 07/16/23 02:35 07/16/23 02:30 07/16/23 02:30 Laboratory Results Short CBC 07/16/23 Range/Units 04:50 WBC 9.98 (4.8-10.8) K/ul Hgb 15.9 (14.0-18.0) g/dl Hct 47.7 (42.0-52.0) % Plt Count 222 (130-400) K/uL BMP 07/15/23 07/16/23 07/16/23 22:44 04:50 12:54 Sodium 130 L 129 L 130 L Potassium 4.4 5.3 H D 4.9 Chloride 99 101 103 Carbon Dioxide 22 22 21 BUN 23 25 H 26 H Creatinine 1.42 H 1.64 H 1.43 H Glucose 157 H 163 H 149 H Calcium 9.4 9.4 8.9
--- NOTE | 2023-07-16 14:39 | Electrocardiogram Report ---
Test Reason : Blood Pressure : / mmHG Vent. Rate : 143 BPM Atrial Rate : 068 BPM P-R Int : 000 ms QRS Dur : 182 ms QT Int : 440 ms P-R-T Axes : 000 -44 148 degrees QTc Int : 679 ms Ventricular tachycardia Left axis deviation Abnormal ECG When compared with ECG of 14-JUL-2023 16:22, VTach has replaced Electronic ventricular pacemaker Vent. rate has increased BY 73 BPM Confirmed by Godwin Jimenez ([id number]) on 07/16/2023 2:39:34 PM Referred By: Jonah CRESPO Confirmed By:Godwin Jimenez
--- NOTE | 2023-07-16 14:40 | Electrocardiogram Report ---
Test Reason : Blood Pressure : / mmHG Vent. Rate : 070 BPM Atrial Rate : 070 BPM P-R Int : 168 ms QRS Dur : 174 ms QT Int : 474 ms P-R-T Axes : 000 -32 082 degrees QTc Int : 511 ms AV dual-paced rhythm Biventricular pacemaker detected Abnormal ECG When compared with ECG of 15-JUL-2023 23:09, No significant change was found Confirmed by Godwin Jimenez ([id number]) on 07/16/2023 2:40:23 PM Referred By: Jonah CRESPO Confirmed By:Godwin Jimenez
--- NOTE | 2023-07-16 14:40 | Electrocardiogram Report ---
Test Reason : Blood Pressure : / mmHG Vent. Rate : 071 BPM Atrial Rate : 071 BPM P-R Int : 168 ms QRS Dur : 182 ms QT Int : 460 ms P-R-T Axes : 000 -34 094 degrees QTc Int : 499 ms AV dual-paced rhythm Biventricular pacemaker detected Abnormal ECG When compared with ECG of 15-JUL-2023 22:54, Electronic ventricular pacemaker has replaced VTach Vent. rate has decreased BY 72 BPM Confirmed by Godwin Jimenez ([id number]) on 07/16/2023 2:39:52 PM Referred By: Jonah [facility] Confirmed By:Godwin Jimenez
--- NOTE | 2023-07-16 19:04 | Discharge Summary ---
Date of Service July 16, 2023 Admission HPI Per Admitting Provider Mr. Nixon is an 83 year old inmate that presents to the ED with chest discomfort and palpitations that has been occurring over the past few days. 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 Recently cut his Coreg from 25mg to 12.5mg SIX days ago. Upon arrival in the ED he experienced a 6 beat run of symptomatic VT and reported feeling chest pressure and feeling 'weird'. [employer] was contacted by the ED and they said that he had 16 pacer terminated events today. Dr. Jimenez from [facility] Cards discussed with ED provider as well. Last ECHO 2021: EF 35-40% with mild TR and moderate MR. Additional past medical history includes HFrEF, HLD, hypothyroidism, diabetes mellitus type 2. In the ED, CXR with trace pleural effusions. No leukocytosis, TSH normal, no otherwise electrolyte abnormalities. Troponin 21.7 which appears to be chronically mildly elevated but will trend to rule out any ACS. Suspect this is ischemic demand. Suspect patient experiencing his symptoms related to medication changes, complex heart failure and pacemaker nearing its end of life. Will place pt back on original Coreg dose, interrogate pacer, have anti-HTN available PRN, obtain recent ECHO, check Mg+, Phos, and trend Troponin with cardiology evaluation. Patient will be admitted for further evaluation and management. Please see A/P for further details. Admission Exam Per Admitting Provider Physical Exam: Vitals signs as noted above General Appearance:Moderately built and nourished, no apparent distress Head: normocephalic, Atraumatic Eyes: normal inspection, EOMI Neck: supple, Trachea midline Respiratory/Chest: Normal breath sounds, CTA, No accessory muscle use Cardiovascular: S1, S2, No murmur, +ICD, paced rhythm Abdomen/GI:Soft, Non tender, Bowel sounds present Extremities/Musculoskeletal:normal inspection, no edema Neurologic/Psych:AAOX3, grossly no focal neurological deficits Skin: normal color, warm Principal Diagnosis Recurrent ventricular tachycardia Discharge Data Allergies Allergy/AdvReac Type Severity Reaction Status Date / Time amiodarone Allergy Mild Unknown Verified 07/14/23 17:26 glimepiride Allergy reported Unverified 07/14/23 17:26 hypoglycemia linagliptin [From Tradjenta] Allergy Unknown Unverified 07/14/23 17:26 metformin Allergy itching Unverified 07/14/23 17:26 saxagliptin [From Onglyza] Allergy Unknown Unverified 07/14/23 17:26 Consultations 07/14/23 18:23 ED Decision to Admit Stat 07/14/23 18:24 Consult Cardiology Routine 07/15/23 16:46 Consult Filing Clerk Routine 07/16/23 12:01 Burn CD for patient Routine Procedures Performed Laboratory Results WBC 9.98 K/ul (4.8-10.8) 07/16/23 04:50 RBC 5.15 M/uL (4.70-6.10) 07/16/23 04:50 Hgb 15.9 g/dl (14.0-18.0) 07/16/23 04:50 Hct 47.7 % (42.0-52.0) 07/16/23 04:50 MCV 92.6 fL (80.0-100.0) 07/16/23 04:50 MCH 30.9 pg (25.0-34.0) 07/16/23 04:50 MCHC 33.3 g/dL (32.0-36.0) 07/16/23 04:50 RDW Std Deviation 44.3 fL (36.4-46.3) 07/16/23 04:50 RDW Coeff of Gisele 12.9 % (11.5-14.5) 07/16/23 04:50 Plt Count 222 K/uL (130-400) 07/16/23 04:50 MPV 11.7 fL (9.4-12.4) 07/16/23 04:50 Immature Gran % (Auto) 0.9 % 07/16/23 04:50 Neut % (Auto) 87.1 % 07/16/23 04:50 Lymph % (Auto) 7.5 % 07/16/23 04:50 [place] % (Auto) 4.1 % 07/16/23 04:50 Eos % (Auto) 0.1 % 07/16/23 04:50 Baso % (Auto) 0.3 % 07/16/23 04:50 Neut # (Auto) 8.69 K/uL (1.40-6.50) H 07/16/23 04:50 Lymph # (Auto) 0.75 K/uL (1.20-3.40) L 07/16/23 04:50 [place] # (Auto) 0.41 K/uL (0.11-0.59) 07/16/23 04:50 Eos # (Auto) 0.01 K/uL (0.00-0.50) 07/16/23 04:50 Baso # (Auto) 0.03 K/uL (0.00-0.20) 07/16/23 04:50 Immature Gran # (Auto) 0.09 K/uL (0.01-0.20) 07/16/23 04:50 PT 11.9 Seconds (9.0-12.0) 07/14/23 17:04 INR 1.1 (0.9-1.1) 07/14/23 17:04 VBG pH 7.34 (7.36-7.41) L 07/16/23 07:13 VBG pCO2 40 mmHg (38-50) 07/16/23 07:13 VBG pO2 52 mmHg 07/16/23 07:13 VBG HCO3 22 mmol/L 07/16/23 07:13 VBG O2 Saturation 82.9 % 07/16/23 07:13 VBG Base Excess -3.9 mEq/L 07/16/23 07:13 Sodium 130 mmol/L (136-145) L 07/16/23 12:54 Potassium 4.9 mmol/L (3.5-5.1) 07/16/23 12:54 Chloride 103 mmol/L (98-107) 07/16/23 12:54 Carbon Dioxide 21 mmol/L (21-32) 07/16/23 12:54 Anion Gap 6 (3-11) 07/16/23 12:54 BUN 26 mg/dl (6-23) H 07/16/23 12:54 Creatinine 1.43 mg/dl (0.6-1.4) H 07/16/23 12:54 Est Cr Clr Drug Dosing 41.7 ml/min 07/16/23 12:54 Est GFR ( Amer) 52.1 ml/min 07/16/23 12:54 Est GFR (Non-Af Amer) 45.0 ml/min 07/16/23 12:54 BUN/Creatinine Ratio 18.2 (10-20) 07/16/23 12:54 Glucose 149 mg/dl (70-99(Fasting)) H 07/16/23 12:54 POC Glucose 140 mg/dl (70-99) H 07/16/23 10:57 Estimat Average Glucose 143 mg/dl 07/15/23 03:58 Hemoglobin A1c 6.6 % (4.5-5.6) H 07/15/23 03:58 Calcium 8.9 mg/dl (8.6-10.3) 07/16/23 12:54 Ionized Calcium 1.22 mmol/L (1.12-1.32) 07/15/23 22:44 Phosphorus 2.5 mg/dl (2.5-4.9) 07/16/23 04:50 Magnesium 2.4 mg/dl (1.7-2.4) 07/16/23 04:50 Total Bilirubin 0.9 mg/dl (0.2-1.0) 07/15/23 03:58 AST 19 U/L (13-39) 07/15/23 03:58 ALT 14 U/L (7-52) 07/15/23 03:58 Alkaline Phosphatase 64 U/L (34-104) 07/15/23 03:58 Troponin I High Sens 241.7 pg/ml (0-20) H* D 07/16/23 07:13 Total Protein 6.0 gm/dl (6.0-8.3) 07/15/23 03:58 Albumin 3.7 gm/dl (3.4-5.0) 07/15/23 03:58 Globulin 2.3 gm/dl (2.5-4.0) L 07/15/23 03:58 Albumin/Globulin Ratio 1.6 (0.9-2) 07/15/23 03:58 Triglycerides 43 mg/dl (0-150) 07/15/23 03:58 Cholesterol 82 mg/dl (0-200) 07/15/23 03:58 LDL Cholesterol, Calc 34 mg/dl 07/15/23 03:58 VLDL Cholesterol, Calc 9 mg/dl (0-30) 07/15/23 03:58 HDL Cholesterol 39 mg/dl 07/15/23 03:58 Cholesterol/HDL Ratio 2.1 (0-5) 07/15/23 03:58 TSH 1.230 uIu/ml (0.300-4.500) 07/14/23 17:04 Nasal Screen MRSA (PCR) Negative (Negative) 07/15/23 Unknown Adenovirus (PCR) Not Detected (NotDetected) 07/14/23 19:20 B. pertussis DNA (PCR) Not Detected (NotDetected) 07/14/23 19:20 B.parapertussis DNA PCR Not Detected (NotDetected) 07/14/23 19:20 C. pneumoniae DNA (PCR) Not Detected (NotDetected) 07/14/23 19:20 Coronavirus OC43 (PCR) Not Detected (NotDetected) 07/14/23 19:20 Coronavirus HKU1 (PCR) Not Detected (NotDetected) 07/14/23 19:20 Coronavirus 229E (PCR) Not Detected (NotDetected) 07/14/23 19:20 SARS-CoV-2 (PCR) Not Detected (NotDetected) 07/14/23 19:20 Coronavirus NL63 (PCR) Not Detected (NotDetected) 07/14/23 19:20 Human Metapneumovir PCR Not Detected (NotDetected) 07/14/23 19:20 Influenza Type A (PCR) Not Detected (NotDetected) 07/14/23 19:20 Influenza Type B (PCR) Not Detected (NotDetected) 07/14/23 19:20 M. pneumoniae (PCR) Not Detected (NotDetected) 07/14/23 19:20 Parainfluenza 1 (PCR) Not Detected (NotDetected) 07/14/23 19:20 Parainfluenza 2 (PCR) Not Detected (NotDetected) 07/14/23 19:20 Parainfluenza 3 (PCR) Not Detected (NotDetected) 07/14/23 19:20 Parainfluenza 4 (PCR) Not Detected (NotDetected) 07/14/23 19:20 RSV (PCR) Not Detected (NotDetected) 07/14/23 19:20 Entero/Rhino (PCR) Not Detected (NotDetected) 07/14/23 19:20 SARS-CoV-2, RNA, NAAT NEGATIVE (NEGATIVE) 07/14/23 Unknown Impressions Chest X-Ray 07/14/23 16:27 XR chest 1V portable HISTORY: 83 years-old Male chest pain, palpitations acute chest pain with cardiac palpitations COMPARISON: Chest radiograph 02/01/2022 TECHNIQUE: AP view of the chest FINDINGS: Cardiac silhouette is upper limits of normal in size. Left subclavian pacer/AICD. No pneumothorax. Trace pleural effusions with mild bibasilar opacities. Pulmonary vascular congestion. Bones of the chest appear grossly intact. Surgical anchors in the right humeral head. IMPRESSION: 1. Cardiomegaly with pulmonary vascular congestion. 2. Trace pleural effusions with mild bibasilar atelectasis. ACT 112: Negative or not required by law. The above report was generated using voice recognition software. It may contain grammatical, syntax or spelling errors. Electronically signed by: Pj Walsh M.D. 07/14/2023 4:45 PM Hospital Course (1) Pacemaker at end of battery life: (2) Syncope, vasovagal: (3) Ventricular tachycardia: (4) History of CHF (congestive heart failure): (5) ICD (implantable cardioverter-defibrillator) in place: (6) Diabetes mellitus, type II: (7) HTN (hypertension): (8) HLD (hyperlipidemia): Plan Mr. Nixon is an 83 yr old inmate that presents to the ED with chest discomfort and palpitations that has been occurring over the past few days. 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 Recently cut his Coreg from 25mg to 12.5mg SIX days ago. Upon arrival in the ED he experienced a 6 beat run of symptomatic VT and reported feeling chest pressure and feeling 'weird'. [employer] was contacted by the ED and they said that he had 16 pacer terminated events today. Dr. Jimenez from [facility] discussed with ED provider as well. 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 In the ED, CXR with trace pleural effusions. No leukocytosis, TSH normal, no otherwise electrolyte abnormalities. Troponin 21.7 which appears to be chronically mildly elevated but will trend to rule out any ACS. Suspect this is ischemic demand. Suspect patient experiencing his symptoms related to medication changes, complex heart failure and pacemaker nearing its end of life. Will place pt back on original Coreg dose, interrogate pacer, have anti-HTN available PRN, obtain recent ECHO, check Mg+, Phos, and trend Troponin with cardiology evaluation. Recurrent ventricular tachycardia ICD discharges Pacer interrogation completed. Approaching elective replacement time per cardiology Med[employer]onic [place] QUAD MRI FOOD PRODUCT INSPECTOR-D Bi-V AICD Pacer interrogation via [employer] indicated 16 pacer terminated events on 07/14 Continue carvedilol 12.5 mg twice daily--due to hypotension Added metoprolol 25 mg every 6 hours Also received IV Lopressor Appreciate cardiology input Appreciate automatic door mechanic help Monitor and replace electrolytes as needed Recurrent VT's despite being on esmolol drip Received phenylephrine for blood pressure support Also on lidocaine infusion--weaned off Cardiology recommends transfer to tertiary care facility for possible ablation Patient transferred to [facility] for further management HFrEF: chronic Last ECHO 01/2022 EF 35-40%, mild TR, mod MR, mild concentric LVH Repeat ECHO: Left ventricle is borderline dilated. Moderate lateral wall hypokinesis. Moderate to severe inferior wall hypokinesis. Left ventricle systolic function is mildly reduced. EF 40-45%. Moderate concentric LVH. Right ventricle is normal in size and function. Pacemaker lead in the right ventricle. Mild aortic regurgitation. Mild pulmonic valvular regurgitation. There is moderate mitral regurgitation. Mild troponin elevation likely secondary to demand ischemia from tachycardia Takes Entresto and Aldactone--held due to hypotension Cardiology on board HTN: Intermittent hypertensive urgency likely situational secondary to ICD discharge Related to old hypertension Coreg held due to hypotension Monitor BP, needed pressor support DM II: chronic HbA1c 6.6 Takes dapagliflozin; hold while inpt Monitor BGs Continue Insulin while hospitalized HLD chronic Lipid panel within normal limits takes atorvastatin;continue DVT Px: Lovenox SQ CODE STATUS Full code Disposition: [facility] Total Time Total Time Spent Total Time Spent (In Minutes): 70 minutes Discharge Plan Discharge Items Patient Disposition: Transfer Acute Care Hospital Reason For Visit: CHEST PAIN/PALPITATIONS Discharge Diagnosis: Recurrent ventricular tachycardia Activity: Per Instructions section Exercise/Sports: Wait until after follow-up appointment Non-emergency contact: Primary Care Provider and Ice House Supervisor Call non-emergency contact if: you have any medication questions, your symptoms worsen, your pain is concerning for you and you have a fever Follow-up/Referrals: Jonah CRESPO [Primary Care Provider] - Dietitian Info: NPO currently Diet: Other - See Diet Comment Addtl Attending Provider Instructions: Follow-up with your Dr. Denzel Borrero at [facility] for further management as advised. Please review medications as below for current inpatient care. Seek immediate medical attention if your symptoms reoccur or worsen Please take all medications as instructed on discharge list below. Please call if you have any questions or problems. You can reach a [facility] hospitalist on duty at [facility] 24 hours a day by calling [phone] Addtl Collet Maker Provider Instructions: Current Inpatient Medications Acetaminophen (Acetaminophen 325 Mg Tab) 650 mg PO Q4H PRN PRN Reason: Pain or Fever Stop: 08/13/23 18:23 Al Hydrox/Mg Hydrox/Simethicone (Aluminum/Magnesium Susp 30 Ml Udc) 15 ml PO Q4H PRN PRN Reason: Dyspepsia Stop: 08/13/23 18:23 Atorvastatin Calcium (Atorvastatin 10 Mg Tab) 10 mg PO HS TAYLOR Stop: 08/13/23 20:59 Last Admin: 07/15/23 20:48 Dose: 10 mg Bimatoprost (Bimatoprost 0.01% Op Soln 2.5 Ml Btl) 1 drops OP DAILY TAYLOR Stop: 08/14/23 08:59 Last Admin: 07/16/23 13:03 Dose: 1 drops Dextrose (Dextrose 50% 50 Ml Syringe) 25 - 50 ml IV UD PRN; Protocol PRN Reason: Hypoglycemia Protocol Stop: 08/13/23 18:23 Enoxaparin Sodium (Enoxaparin Inj 40 Mg/0.4 Ml Syr) 40 mg SQ QAM TAYLOR Stop: 08/14/23 08:59 Last Admin: 07/16/23 08:11 Dose: 40 mg Glucagon (Glucagon For Inj 1 Mg Vial) 1 mg SQ UD PRN; Protocol PRN Reason: Hypoglycemia Protocol Stop: 08/13/23 18:23 Glucose (Glucose 10 Tab/Tube) 4 - 8 tab PO UD PRN; Protocol PRN Reason: Hypoglycemia Treatment Stop: 08/13/23 18:23 Glucose (Glucose 40% Gel 15 Gm Tube) 15 - 30 gm PO UD PRN; Protocol PRN Reason: Hypoglycemia Protocol Stop: 08/13/23 18:23 Phenylephrine HCl (Phenylephrine/Nss) 25 mg in 250 mls @ 23.85 mls/hr IV .[id number] [facility]; Protocol Stop: 08/14/23 21:29 Last Titration: 07/16/23 09:44 Dose: 0.6 mcg/kg/min, 28.6 mls/hr Lidocaine HCl/Dextrose (Xylocaine/D5w Drip 4mg/Ml) 2,000 mg in 500 mls @ 0 mls/hr IV .Q0M [facility]; Protocol Stop: 08/14/23 23:14 Last Titration: 07/16/23 13:04 Dose: 0 mg/min, 0 mls/hr Esmolol HCl (Brevibloc) 2,500 mg in 250 mls @ 119.25 mls/hr IV .Q2H6M [facility]; Protocol Stop: 08/14/23 23:44 Last Admin: 07/16/23 13:03 Dose: 250 mcg/kg/min, 119.3 mls/hr Insulin Aspart (Insulin Aspart Per Unit Charge) 0 units SC ACHS [facility] Stop: 08/13/23 20:59 Last Admin: 07/16/23 11:21 Dose: Not Given Insulin Glargine (Lantus Per Unit Charge) 8 units SQ HS [facility]; Protocol Stop: 08/14/23 20:59 Levothyroxine Sodium (Levothyroxine Sodium 100 Mcg Tablet) 100 mcg PO DAILYBB [facility] Stop: 08/14/23 06:29 Last Admin: 07/16/23 06:10 Dose: 100 mcg Magnesium Hydroxide (Magnesium Hydroxide Susp 30 Ml Udc) 30 ml PO Q12H PRN PRN Reason: Constipation Stop: 08/13/23 18:23 Metoprolol Tartrate (Metoprolol Tartrate 25 Mg Tab) 25 mg PO Q6H [facility] Stop: 08/14/23 15:59 Last Admin: 07/16/23 04:26 Dose: 25 mg Metoprolol Tartrate (Metoprolol Tartrate 1 Mg/Ml Vial) 5 mg IV Q4H PRN PRN Reason: SBP 110 mmHg Stop: 08/13/23 18:45 Miscellaneous (Carbohydrates For Hypoglycemia ) 15 - 30 gm PO UD PRN PRN Reason: Hypoglycemia Protocol Stop: 08/13/23 18:23 Miscellaneous Information (Pharmacy Glycemic Mgmt Consult) 1 each N/A UD PRN PRN Reason: Consult Stop: 08/13/23 18:23 Ondansetron HCl (Ondansetron Inj 2 Mg/Ml 2 Ml Vial) 4 mg IV Q6H PRN PRN Reason: Nausea Stop: 08/13/23 18:23 Polyethylene Glycol (Polyethylene (Miralax) 17 Gm Pack) 17 gm PO DAILY PRN PRN Reason: Constipation Stop: 08/13/23 18:23 Sacubitril/Valsartan (Valsartan/Sacubitril 103/97mg Tab) 1 tab PO BID [facility] Stop: 08/13/23 20:59 Last Admin: 07/16/23 08:13 Dose: 1 tab Spironolactone (Spironolactone 25 Mg Tab) 25 mg PO DAILY [facility] Stop: 08/14/23 08:59 Last Admin: 07/16/23 08:14 Dose: 25 mg Pending Studies at Discharge: No Stand-Alone Forms: My [facility] Skilled Items Patient informed of condition?: Yes DNR: No Discharge Level of Care: Other Communicable Disease: No Discharge Prognosis: Other Lines: Peripheral IV Urinary Catheter: No Medications and DC Order Prescriptions: Continued spironolactone 25 mg tablet 25 mg PO DAILY Farxiga 10 mg tablet 10 mg PO DAILY atorvastatin 10 mg Tablet 10 mg PO HS carvedilol 12.5 mg Tablet 12.5 mg PO BID Rx Instructions: must administer with a meal/food bimatoprost 0.03 % Drops 1 drp OPB DAILY Entresto 97-103 mg Tablet 1 tab PO BID calcium polycarbophil [Fiber-Lax] 625 mg Tablet 1,250 mg PO DAILY multivitamin Tablet 1 tab PO DAILY levothyroxine 100 mcg Tablet 100 mcg PO QAM Discharge Orders: Discharge Order (Routine); Ordered 07/16/23 Ordered By: Rory Lopez Admission Data Admit Date/Time: 07/14/23 18:24 Attending Provider: Rory Lopez Admit Provider: Rory Lopez Primary Care Provider: Jonah CRESPO Other Providers: Rory Lopez; Godwin Jimenez; Deepti Nicholas
[2023-07-16] MEDS ORDERED: LANTUS PER UNIT CHARGE SQ SCH (21:00)
== END 2023-07-16 15:59 | disposition short-term general hospital (02) | DRG 309 ==
LOC: ED 16:06 → EDINP 18:24 → 1E 07-15 16:45